=== PATIENT | female | born 1950 | race Caucasian/White ===

== ENCOUNTER 2018-04-20 19:14 | Inpatient (IN) ==
--- NOTE | 2018-04-20 19:22 | Emergency Department Note ---
Disposition Clinical Impression: Weakness, Dehydration, Acute kidney injury Disposition: Admitted As Inpatient Condition: Fair Time of Disposition: 23:09 Weakness HPI - General Chief complaint: ED Weakness Stated complaint: weakness Time Seen by Provider: 04/20/18 19:18 Source: patient, family, EMS Mode of arrival: EMS Limitations: no limitations Nursing Notes Reviewed: Yes Vital Signs Reviewed: Yes - History of Present Illness HPI Narrative: Patient receiving chemotherapy for ovarian cancer. She presents by EMS from home for generalized weakness, especially in her legs. Associated nausea. No fevers. Pt Subjective Complaint: generalized weakness/fatigue Onset (ago): hour(s) Duration: constant Location: generalized, other (Especially in the legs) Improves with: none Worsens with: none Context: other (Undergoing chemotherapy for advanced ovarian cancer) Associated symptoms: Reports: other (Nausea) - Related Data Home Medications Medication Instructions Recorded Confirmed Aspirin 81 mg PO DAILY 08/18/16 04/20/18 Atenolol [Tenormin] 25 mg PO DAILY 08/18/16 04/20/18 Ipratropium/Albuterol Neb [Duoneb] 3 ml IH Q6HR PRN 08/18/16 04/20/18 Tiotropium [Spiriva] 1 puff IH DAILY 08/18/16 04/20/18 metFORMIN [Glucophage] 500 mg PO BIDWM 08/18/16 04/20/18 Albuterol Sulfate [Albuterol 2 puff IH QID PRN 01/04/18 04/20/18 Inhaler] Budesonide/Formoterol 160/4.5 2 puff IH BIDR 01/04/18 04/20/18 [Symbicort 160/4.5] Cholecalciferol (D-3) [Vitamin D] 1,000 unit PO DAILY 01/04/18 04/20/18 Omeprazole [PriLOSEC] 40 mg PO DAILY 01/04/18 04/20/18 Pravastatin Sodium [Pravachol] 80 mg PO HS 01/04/18 04/20/18 Azelastine 0.1% Nasal [place] 1 spr NS BID 04/20/18 04/20/18 [Astelin] Loratadine/Pseudophed (12 HR) 1 tab PO DAILY 04/20/18 04/20/18 [Claritin D (12HR)] Triamcinolone Acetonide [Nasacort] 1 puff NS DAILY 04/20/18 04/20/18 Allergies Allergy/AdvReac Type Severity Reaction Status Date / Time ciprofloxacin [From Cipro] Allergy Rash Verified 04/20/18 20:31 prednisone Allergy Rash Verified 04/20/18 20:31 All systems ED: reviewed and negative except as stated. Constitutional: Reports: weakness Eyes: Reports: as per HPI ENT ED: Reports: as per HPI Cardiovascular: Reports: as per HPI Respiratory: Reports: as per HPI Gastrointestinal: Reports: nausea, other (Open fistula lesion to abd wall) Genitourinary: Reports: as per HPI Musculoskeletal: Reports: as per HPI Integumentary: Reports: as per HPI Neurological: Reports: as per HPI Psychiatric: Reports: as per HPI Endocrine: Reports: as per HPI Hematological/Lymphatic: Reports: as per HPI Allergic/Immunologic: Reports: as per HPI Past Medical History - Past Medical History Source: patient Medical history: Reports: asthma, cancer, COPD, diabetes, GERD, hyperlipidemia, hypertension, other Surgical history: Reports: hysterectomy (1980), other (Colonoscopy w/polypectomy , hyperplastic polyp, Dr. 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 - Social History Smoking Status: Former smoker Smokeless Tobacco Status: No Alcohol use: Reports: none Drug use: Reports: none Physical Exam - General Limitations: no limitations General appearance: alert - Head Head exam: atraumatic - Eye Eye exam: Present: normal appearance - ENT ENT exam: normal exam - Neck Neck exam: Present: normal inspection, full ROM - Chest Chest inspection: Present: normal inspection, symmetric chest wall rise - Respiratory Respiratory exam: Present: normal lung sounds bilaterally - Cardiovascular Cardiovascular exam: Present: regular rate, normal rhythm, normal heart sounds - Abdominal Exam Abdominal exam: Present: soft, Non-Tender, other (Ostomy appliance in place. Open fistula lesion with scant drainage) - Rectal Exam Rectal exam: Present: deferred - Extremities Exam Extremities exam: Present: normal inspection - Neurological Exam Neurological exam: Present: alert, oriented X3, CN II-XII intact - Psychiatric Psychiatric exam: Present: normal affect, normal mood - Skin Skin exam: Present: warm, dry, intact Course Course Narrative: Patient with a known history of ovarian cancer undergoing chemotherapy presents with generalized weakness. I will evaluate for an acute infectious or metabolic process - Reevaluation(s) Reevaluation #1: Labs indicate acute kidney injury and dehydration with hyponatremia. IV fluids ordered Vital Signs Temperature 98.1 F 04/20/18 19:16 Pulse Rate 103 04/20/18 19:16 Respiratory Rate 18 04/20/18 19:16 Blood Pressure 122/91 04/20/18 19:16 O2 Sat by Pulse Oximetry 98 04/20/18 19:16 Temperature 98.2 F 04/20/18 22:39 Pulse Rate 95 04/20/18 22:39 Respiratory Rate 16 04/20/18 22:39 Blood Pressure 96/62 04/20/18 22:39 O2 Sat by Pulse Oximetry 96 04/20/18 22:39 Oxygen Delivery Oxygen Delivery Room Air Weakness - Lab Data Lab results reviewed: Yes I reviewed the patient's lab results. Result diagrams: 04/20/18 19:26 04/20/18 19:26 Lab Results 04/20/18 04/20/18 04/20/18 Range/Units 19:26 19:26 19:38 WBC 5.4 (4.3-11.1) K/mcL RBC 4.14 (3.82-4.97) M/mcL Hgb 12.0 (11.5-15.4) g/dL Hct 36.9 (35.3-44.9) % MCV 89.1 (83.0-100.0) fL MCH 29.0 (28.0-33.3) pg MCHC 32.5 (31.6-35.5) g/dL RDW 21.4 H (11.5-14.5) % Plt Count 402 H (140-400) K/mcL MPV 10.2 (9.4-12.4) fL Immature Gran % 1.7 (0-4) % Seg Neutrophils % 66.0 % Lymphocytes % 14.6 % Monocytes % 15.5 % Eosinophils % 1.3 % Basophils % 0.9 % Neutrophils # 3.6 (1.6-8.9) K/mcL Lymphocytes # 0.8 (0.6-4.6) K/mcL Monocytes # 0.8 (0.0-1.3) K/mcL Eosinophils # 0.1 (0.0-0.6) K/mcL Basophils # 0.1 (0.0-0.2) K/mcL Sodium 124 L (136-145) mEq/L Potassium 4.0 (3.5-5.1) mEq/L Chloride 92 L (98-107) mEq/L Carbon Dioxide 18 L (23-29) mEq/L BUN 32 H (8-23) mg/dL Creatinine 1.57 H (0.60-1.20) mg/dL Est GFR ( Amer) 40 L (> 60) Est GFR (Non-Af Amer) 33 L (> 60) BUN/Creatinine Ratio 20 (6-26) Glucose 119 H (70-105) mg/dL Calculated Osmolality 266 L (280-300) Calcium 11.1 H (8.6-10.3) mg/dL Magnesium 1.9 (1.6-2.6) mg/dL Total Bilirubin 0.3 (0.3-1.0) mg/dL AST 24 (13-39) Units/L ALT 47 (7-52) Units/L Alkaline Phosphatase 208 H (34-104) Units/L Troponin I < 0.03 (< 0.04) ng/mL Serum Total Protein 8.7 (6.4-8.9) g/dL Albumin 4.6 (3.5-5.7) g/dL Globulin 4.1 H (2.4-3.5) g/dL Albumin/Globulin Ratio 1.1 (1.1-2.2) Urine Color Dark Yellow (Yellow) Urine Clarity Turbid A (Clear) Urine pH 5.5 (5.0-8.0) pH Units Ur Specific [place] > 1.030 H (1.010-1.025) Urine Protein 30 H (Neg-Trace) mg/dL Urine Glucose (UA) Normal (Normal) mg/dL Urine Ketones Trace H (Negative) mg/dL Urine Blood Negative (Negative) Urine Nitrite Negative (Negative) Urine Bilirubin Moderate H (Negative) Urine Urobilinogen Normal (Normal) mg/dL Ur Leukocyte Esterase Moderate H (Negative) Urine Microscopic RBC 0-3 (0-3) per hpf Urine Microscopic WBC TNTC H (0-3) per hpf Ur Squamous Epith Cells Many H (None-Few) per lpf Urine Bacteria None Seen (None-Few) per hpf Hyaline Casts Moderate H (None-Few) per lpf - Radiology Data Radiology results reviewed: Yes I reviewed the patient's radiology results. - EKG Data EKG attestation: Yes I reviewed and interpreted this EKG. EKG results narrative: Sinus tachycardia rate 100 FL 137 QRS 88 QT/QTC 351/408. No acute ST segment elevation. Study compared to previous dated 01/22/18
[2018-04-20 19:38] LABS: Basophils # 0.1 K/mcL (0.0-0.2); Basophils % 0.9 %; Eosinophils # 0.1 K/mcL (0.0-0.6); Eosinophils % 1.3 %; Hematocrit 36.9 % (35.3-44.9); Immature Granulocytes % 1.7 % (0-4); Lymphocytes # 0.8 K/mcL (0.6-4.6); Lymphocytes % 14.6 %; Mean Corpuscular HGB Conc 32.5 g/dL (31.6-35.5); Mean Corpuscular Volume 89.1 fL (83.0-100.0); Mean Platelet Volume 10.2 fL (9.4-12.4); Monocytes # 0.8 K/mcL (0.0-1.3); Monocytes % 15.5 %; Neutrophils # 3.6 K/mcL (1.6-8.9); Platelet Count 402 K/mcL (140-400); Red Blood Count 4.14 M/mcL (3.82-4.97); Red Cell Distribution Width 21.4 % (11.5-14.5)
[2018-04-20 19:51] LABS: Bilirubin,Urine Moderate (Negative); Blood,Urine Negative (Negative); Clarity,Urine Turbid (Clear); Color,Urine Dark Yellow (Yellow); Glucose,Urine (UA) Normal (Normal); Ketones,Urine Trace mg/dL (Negative); Leukocyte Esterase,Urine Moderate (Negative); Nitrite,Urine Negative (Negative); PH,Urine 5.5 pH Units (5.0-8.0); Protein,Urine 30 mg/dL (Neg-Trace); Specific Gravity,Urine > 1.030 (1.010-1.025); Urobilinogen,Urine Normal (Normal)
[2018-04-20 19:55] LABS: Bacteria,Urine None Seen per hpf (None-Few); Squamous Epithelial Cell,Urine Many per lpf (None-Few); WBC,Urine TNTC per hpf (0-3)
[2018-04-20 20:06] LABS: Troponin I < 0.03 ng/mL (< 0.04)
[2018-04-20 20:07] LABS: Alanine Aminotransferase 47 Units/L (7-52); Albumin 4.6 g/dL (3.5-5.7); Albumin/Globulin Ratio 1.1 (1.1-2.2); Alkaline Phosphatase 208 Units/L (34-104); Aspartate Amino Transferase 24 Units/L (13-39); BUN/Creatinine Ratio 20 (6-26); Bilirubin,Total 0.3 mg/dL (0.3-1.0); Blood Urea Nitrogen 32 mg/dL (8-23); Calcium 11.1 mg/dL (8.6-10.3); Carbon Dioxide 18 mEq/L (23-29); Chloride 92 mEq/L (98-107); Globulin 4.1 g/dL (2.4-3.5); Glucose 119 mg/dL (70-105); Magnesium 1.9 mg/dL (1.6-2.6); Osmolality,Calculated 266 (280-300); Sodium 124 mEq/L (136-145); Total Protein 8.7 g/dL (6.4-8.9); eGFR For African Americans 40 (> 60); eGFR For Non-African Americans 33 (> 60)
[2018-04-20 20:13] LABS: Hyaline Casts,Urine Moderate per lpf (None-Few)
[2018-04-20 20:14] LABS: RBC,Urine 0-3 per hpf (0-3)
[2018-04-20] MEDS ORDERED: 0.9 % Sodium Chloride 1,000 ML IVC ONE (20:14)
--- NOTE | 2018-04-20 21:03 | Internal Med History&Physical ---
Date of Encounter: 04/20/18 Time of Encounter: 20:59 Internal Medicine - H&P: HPI Chief complaint: Dizziness and weakness Admitted From: Emergency Dept Plans for Post Hospital Care: Home History of present illness: Ms. Arzola is a 67 year old female with history of ovarian cancer stage III that was diagnosed in December for which she has been receiving chemotherapy with last chemotherapy 3 weeks ago, diabetes, COPD on nighttime oxygen, GERD, hyperlipidemia, hypertension, SBO status post colon resection with ostomy creation complicated by wound dehiscence, who presents with complaints of dizziness upon standing this been going on since yesterday. The patient says that she has been feeling weak for a couple days actually. She had a CT chest/ abdomen/pelvis done yesterday for evaluation of her cancer and had to do oral IV contrast. She says the oral contrast "did not sit well with me" and has caused her to be nauseated and has not been eating well. This morning she felt dizzy upon standing and felt that she was dehydrated and was brought to the emergency department. In the ED she was hemodynamic is stable. Laboratory workup showed signs of dehydration with elevated kidney function, hyponatremia at 124, elevated platelets and elevated calcium. The patient was given 1 L of normal saline in the ED. She denies any fever, chills, blurry vision, headache , vomiting, abdominal pain, diarrhea or constipation, urinary symptoms, or neurological symptoms. Past Med Surg Social Fam HX - Past Medical History Medical history: asthma, cancer, COPD, diabetes, GERD, hyperlipidemia, hypertension, other Additional medical history: ovarian cancer Psychiatric history: no psych history - Past Surgical History Surgical History: hysterectomy (1980), other (Colonoscopy w/polypectomy, hyperplastic polyp, Dr. Doe 07/05/2012; Heart cath 08/18/2016) Additional surgical history: bowel obstruction - Social History Smoking Status: Former smoker Smokeless Tobacco Status: No Alcohol use: none Drug use: none Internal Medicine - H&P: Meds Aspirin 81 mg PO DAILY 08/18/16 [History] Atenolol [Tenormin] 25 mg PO DAILY 08/18/16 [History] Ipratropium/Albuterol Neb [Duoneb] 3 ml IH Q6HR PRN 08/18/16 [History] Tiotropium [Spiriva] 1 puff IH DAILY 08/18/16 [History] metFORMIN [Glucophage] 500 mg PO BIDWM 08/18/16 [History] Albuterol Sulfate [Albuterol Inhaler] 2 puff IH QID PRN 01/04/18 [History] Budesonide/Formoterol 160/4.5 [Symbicort 160/4.5] 2 puff IH BIDR 01/04/18 [ History] Cholecalciferol (D-3) [Vitamin D] 1,000 unit PO DAILY 01/04/18 [History] Omeprazole [PriLOSEC] 40 mg PO DAILY 01/04/18 [History] Pravastatin Sodium [Pravachol] 80 mg PO HS 01/04/18 [History] Azelastine 0.1% Nasal [place] [Astelin] 1 spr NS BID 04/20/18 [History] Loratadine/Pseudophed (12 HR) [Claritin D (12HR)] 1 tab PO DAILY 04/20/18 [ History] Triamcinolone Acetonide [Nasacort] 1 puff NS DAILY 04/20/18 [History] 3 Allergy/AdvReac Type Severity Reaction Status Date / Time ciprofloxacin [From Cipro] Allergy Rash Verified 04/20/18 20:31 prednisone Allergy Rash Verified 04/20/18 20:31 All Systems PM: A 10-system review of systems was performed and is negative for pertinent findings except as documented above in the HPI. Review of systems: All systems reviewed are negative except for as mentioned above - Constitutional Vitals: Temp Pulse Resp BP Pulse Ox 98.1 F 103 18 122/91 98 04/20/18 19:16 04/20/18 19:16 04/20/18 19:16 04/20/18 19:16 04/20/18 19:16 Exam: GEN: NAD HEENT: AT, NC, No cyanosis, oral mucosa is moist, No JVD Lymphatics: No lymphadenoapthy Eyes: Extrocular muscles intact, anicteric CVS:RRR. S1, S2, No m/r/g RESP: CTAB ABD: Soft, NT, ND, +BS EXT: No edema, No rashes, 2+ DP NEURO: Nonfocal, CN II-XII intact, No focal motor or sensory deficits Psych: Cooperative, Not anxious or depressed Internal Med - H&P Results - Labs CBC & Chem 7: 04/20/18 19:26 04/20/18 19:26 Labs: Short CBC 04/20/18 Range/Units 19:26 WBC 5.4 (4.3-11.1) K/mcL Hgb 12.0 (11.5-15.4) g/dL Hct 36.9 (35.3-44.9) % Plt Count 402 H (140-400) K/mcL Neutrophils # 3.6 (1.6-8.9) K/mcL BMP 04/20/18 19:26 Sodium 124 L Potassium 4.0 Chloride 92 L Carbon Dioxide 18 L BUN 32 H Creatinine 1.57 H Glucose 119 H Calcium 11.1 H Cardiac Enzymes 04/20/18 Range/Units 19:26 Troponin I < 0.03 (< 0.04) ng/mL Liver Function 04/20/18 Range/Units 19:26 Total Bilirubin 0.3 (0.3-1.0) mg/dL AST 24 (13-39) Units/L ALT 47 (7-52) Units/L Alkaline Phosphatase 208 H (34-104) Units/L Albumin 4.6 (3.5-5.7) g/dL Urine 04/20/18 Range/Units 19:38 Urine Color Dark Yellow (Yellow) Urine Clarity Turbid A (Clear) Urine pH 5.5 (5.0-8.0) pH Units Ur Specific [place] > 1.030 H (1.010-1.025) Urine Protein 30 H (Neg-Trace) mg/dL Urine Glucose (UA) Normal (Normal) mg/dL - Impressions ITS Impressions Chest X-Ray 04/20/18 19:19 IMPRESSION: No acute cardiopulmonary process. D/ : / 04/20/2018 20:01:53 Chelsey Kamara MD / bcarter Interpreting Provider: Chelsey Kamara MD - Assessment and plan (1) KOBE (acute kidney injury) Current Visit: Yes Status: Acute Assessment and plan: The patient has signs that explains her dizziness/weakness. We will hydrate the patient. We will monitor kidney function. The patient did get IV contrast yesterday but I believe her symptoms today are likely from dehydration. If her kidney function does not improve with IV fluids, will consult nephrology. Avoid nephrotoxins. (2) Hyponatremia Current Visit: Yes Status: Acute Assessment and plan: Again likely secondary to volume depletion. We will hydrate and check labs in the morning. (3) Dehydration Current Visit: Yes Status: Acute Assessment and plan: Plan as above. (4) Ovarian cancer Current Visit: Yes Status: Acute Assessment and plan: Follows up with [facility]. Currently on chemotherapy. Qualifiers: Laterality: unspecified laterality Qualified Code(s): C56.9 - Malignant neoplasm of unspecified ovary (5) COPD (chronic obstructive pulmonary disease) Current Visit: Yes Status: Acute Assessment and plan: Not in exacerbation. Continue with home inhalers. Qualifiers: COPD type: emphysema Emphysema type: unspecified Qualified Code(s): J43.9 - Emphysema, unspecified (6) Hypertension Current Visit: Yes Status: Acute Assessment and plan: Resume home antihypertensives. Qualifiers: Hypertension type: essential hypertension Qualified Code(s): I10 - Essential (primary) hypertension (7) S/P colostomy Current Visit: Yes Status: Acute Assessment and plan: Patient has obvious surgical scars with an area of a open small wound in the midabdomen. Area seems clean and dry however I will get a wound consult. (8) GERD (gastroesophageal reflux disease) Current Visit: Yes Status: Acute Assessment and plan: Continue on PPI Qualifiers: Esophagitis presence: without esophagitis Qualified Code(s): K21.9 - Gastro -esophageal reflux disease without esophagitis (9) DVT prophylaxis Current Visit: Yes Status: Acute Assessment and plan: Heparin subcutaneous (10) Diabetes Current Visit: Yes Status: Acute Assessment and plan: Will place on SSI and accucheks. 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
[2018-04-20] MEDS ORDERED: Ondansetron 4 MG/2 ML VIAL IVP PRN (21:07)
[2018-04-20] MEDS ORDERED: Naloxone 0.4 MG/ML INJ IVP PRN (21:08)
[2018-04-20] MEDS ORDERED: Acetaminophen 325 MG TABLET PO PRN (21:08)
[2018-04-20] MEDS ORDERED: D5% in Water 1,000 ML IVC PRN (21:09)
[2018-04-20] MEDS ORDERED: Dextrose Gel 15 GM/37.5 ML TUBE PO PRN ×2 (21:09)
[2018-04-20] MEDS ORDERED: *HR* Dextrose 50 % in Water (Syg) 50 ML SYRINGE IVP PRN (21:09)
[2018-04-20] MEDS: *HR* Heparin 5,000 UNIT/ML VIAL SQ SCH (23:22)
[2018-04-20] MEDS: 0.9 % Sodium Chloride 1,000 ML IVC SCH (23:23)
[2018-04-20] MEDS: Budesonide/Formoterol 160/4.5 MDI IH SCH (23:55)
[2018-04-21 04:20] LABS: Basophils % 0.7 %; Eosinophils # 0.1 K/mcL (0.0-0.6); Eosinophils % 1.3 %; Hematocrit 29.8 % (35.3-44.9); Immature Granulocytes % 1.7 % (0-4); Lymphocytes # 0.9 K/mcL (0.6-4.6); Lymphocytes % 20.3 %; Mean Corpuscular HGB Conc 32.6 g/dL (31.6-35.5); Mean Corpuscular Volume 89.2 fL (83.0-100.0); Monocytes # 0.8 K/mcL (0.0-1.3); Monocytes % 17.2 %; Neutrophils # 2.7 K/mcL (1.6-8.9); Platelet Count 308 K/mcL (140-400); Red Blood Count 3.34 M/mcL (3.82-4.97); Red Cell Distribution Width 21.5 % (11.5-14.5); Segmented Neutrophils % 58.8 %
[2018-04-21 04:22] LABS: Hemoglobin 9.7 g/dL (11.5-15.4)
[2018-04-21 04:39] LABS: Calcium 9.4 mg/dL (8.6-10.3); Magnesium 1.8 mg/dL (1.6-2.6); Phosphorous 4.6 mg/dL (2.7-4.5); Potassium 3.3 mEq/L (3.5-5.1)
[2018-04-21] MEDS: Budesonide/Formoterol 160/4.5 MDI IH SCH ×2 (08:05→20:16)
[2018-04-21] MEDS ORDERED: 0.9 % Sodium Chloride 250 ML IVC ONE ×3 (09:00→12:44)
[2018-04-21] MEDS ORDERED: 0.9 % Sodium Chloride 250 ML ONE (09:01)
[2018-04-21] MEDS: *HR* Heparin 5,000 UNIT/ML VIAL SQ SCH ×3 (09:46→21:32)
[2018-04-21] MEDS: Aspirin 81 MG TAB.CHEW PO SCH (09:47)
[2018-04-21] MEDS: Azelastine 0.1% Nasal Spray 30 ML BOTTLE NS SCH ×2 (09:47→21:32)
[2018-04-21] MEDS: Cholecalciferol (D-3) 1,000 UNIT TABLET PO SCH (09:47)
[2018-04-21] MEDS: Loratadine/Pseudophed (12 HR) 1 EACH TABLET PO SCH (09:47)
[2018-04-21] MEDS: Fluticasone Propionate Nasal 50 MCG/SPRAY BOTTLE NS SCH ×2 (09:47→21:32)
[2018-04-21] MEDS: Insulin LISPRO 300 UNITS/3 ML VIAL SQ SCH ×3 (09:48→16:07)
[2018-04-21] MEDS: 0.9 % Sodium Chloride 1,000 ML IVC SCH (09:48)
[2018-04-21] MEDS: Tiotropium 18 MCG inhalation IH SCH (12:07)
[2018-04-21] MEDS ORDERED: 0.9 % Sodium Chloride 500 ML IVC ONE (12:51)
[2018-04-21] MEDS ORDERED: 0.9 % Sodium Chloride 500 ML ONE (12:57)
[2018-04-21 13:37] LABS: Bilirubin,Urine Negative (Negative); Blood,Urine Negative (Negative); Clarity,Urine Clear (Clear); Color,Urine Yellow (Yellow); Glucose,Urine (UA) Normal (Normal); Ketones,Urine Negative (Negative); Leukocyte Esterase,Urine Moderate (Negative); Nitrite,Urine Negative (Negative); PH,Urine 6.5 pH Units (5.0-8.0); Protein,Urine Trace mg/dL (Neg-Trace); Urobilinogen,Urine Normal (Normal)
[2018-04-21 13:47] LABS: Hyaline Casts,Urine Few per lpf (None-Few); Squamous Epithelial Cell,Urine Many per lpf (None-Few); WBC,Urine 50-100 per hpf (0-3)
[2018-04-21 13:48] LABS: Bacteria,Urine Few per hpf (None-Few); Renal Epithelial Cells,Urine Few per hpf (None-Few)
--- NOTE | 2018-04-21 17:33 | Internal Med Progress Note ---
Date of Encounter: 04/21/18 Time of Encounter: 11:00 - Assessment and plan (1) KOBE (acute kidney injury) Current Visit: Yes Status: Acute Assessment and plan: Presented with KOBE likely secondary to dehydration and decreased po intake due to nausea. Improved with IVF. Avoid nephrotoxins and monitor labs. Consider nephrology consultation if no improvement. T (2) Hyponatremia Current Visit: Yes Status: Acute Assessment and plan: Likwly secondary to dehydration and volume reduction. Improved overnight. Monitor labs in the a.m. (3) Dehydration Current Visit: Yes Status: Acute Assessment and plan: Plan as above. (4) Ovarian cancer Current Visit: Yes Status: Chronic Assessment and plan: Follow with cancer center after discharge. Qualifiers: Laterality: unspecified laterality Qualified Code(s): C56.9 - Malignant neoplasm of unspecified ovary (5) COPD (chronic obstructive pulmonary disease) Current Visit: Yes Status: Acute Assessment and plan: No acute exacerbation. Lungs clear, no wheezing, rales, or ronchi. Continue home medications, Symbicort, albuterol inhaler 02 prn to maintain sats > 92% Qualifiers: COPD type: emphysema Emphysema type: unspecified Qualified Code(s): J43.9 - Emphysema, unspecified (6) Hypertension Current Visit: Yes Status: Acute Assessment and plan: Pt with hypotension, antihypertensives held. Qualifiers: Hypertension type: essential hypertension Qualified Code(s): I10 - Essential (primary) hypertension (7) S/P colostomy Current Visit: Yes Status: Acute Assessment and plan: Patient has obvious surgical scars with an area of a open small wound in the midabdomen. Area cultured due to lactic acidosis and hypotension. Area seems clean and dry however I will get a wound consult. Requested culture. (8) DVT prophylaxis Current Visit: Yes Status: Acute Assessment and plan: Heparin (9) GERD (gastroesophageal reflux disease) Current Visit: Yes Status: Chronic Assessment and plan: Chronic. 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 No tachycardia, tachypneia, or fever noted. UA not indicative of UTI, CXR without acute cardiopulmonary process. Abdominal wound cultured, Blood culture x 2 ordered and pending. Repeat level 1.5- resolved. - Time Spent With Patient Total time spent is greater than 50% in coordination of care (as documented) at patient's floor/unit and/or counseling patient: less than 15 minutes - Subjective Interval history: pt was seen and assessed at bedside at 11a.m. at bedside. Pt states that she was not feeling well, did not eat or drink, and became dehydrated. She reports 'upset stomach" since yesterday, 3-4 day history of frontal headache, feeling weak, and posterior neck pain with radiation into upper shouders and into bilateral legs. She states that the headache is a sinus headache and that she has them all of the time. - Constitutional Vitals: Temp Pulse Resp BP Pulse Ox 98.2 F 87 16 100/60 90 04/21/18 14:59 04/21/18 14:59 04/21/18 14:59 04/21/18 16:06 04/21/18 14:59 General appearance: Present: cooperative, A&O X 3, pleasant, no acute distress, answers questions appropriately - Head Head exam: Present: atraumatic, normal inspection, normocephalic - Eye Eye exam: Present: normal appearance, conjuntiva pink, sclera anicteric - Neck Neck exam general surgery: Present: supple, trachea midline. Absent: lymphadenopathy, tenderness - Respiratory Respiratory exam: Present: CTAB. Absent: accessory muscle use, chest wall tenderness, decreased breath sounds, rales, rhonchi, wheezes - Cardiovascular Cardiovascular exam: Present: RRR, +S1, +S2. Absent: diastolic murmur, gallop, rubs, systolic murmur - GI/Abdominal GI/Abdominal exam: Present: soft, no peritoneal signs. Absent: distended, hepatomegaly, tenderness - Extremities Exam Extremities exam: Present: normal capillary refill, normal inspection, warm, radial pulses palpable and symmetrical. Absent: calf tenderness, cyanotic, pedal edema, tenderness - Neurological Exam Neurological exam: Present: alert, oriented X3, no focal deficits. Absent: facial droop, speech deficit - Skin Skin exam: Present: dry, intact, normal color, warm. Absent: rash Internal Medicine: Result - Labs CBC & Chem 7: 04/21/18 03:54 04/21/18 03:54 Labs: Short CBC 04/21/18 Range/Units 03:54 WBC 4.6 (4.3-11.1) K/mcL Hgb 9.7 L D (11.5-15.4) g/dL Hct 29.8 L (35.3-44.9) % Plt Count 308 (140-400) K/mcL Neutrophils # 2.7 (1.6-8.9) K/mcL BMP 04/21/18 03:54 Sodium 128 L Potassium 3.3 L Chloride 98 Carbon Dioxide 17 L BUN 30 H Creatinine 1.20 Glucose 99 Calcium 9.4 Urine 04/21/18 Range/Units 13:30 Urine Color Yellow (Yellow) Urine Clarity Clear (Clear) Urine pH 6.5 (5.0-8.0) pH Units Ur Specific [place] 1.020 (1.010-1.025) Urine Protein Trace (Neg-Trace) mg/dL Urine Glucose (UA) Normal (Normal) mg/dL Consult Discharge Plan - Plan Referrals: Erickson Cheney MD [Primary Care Provider] -
[2018-04-21] MEDS ORDERED: Ringers Solution, Lactated 1,000 ML IVC SCH (17:45)
--- NOTE | 2018-04-21 17:48 | Electrocardiograph Report ---
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
[2018-04-21] MEDS ORDERED: Insulin LISPRO 300 UNITS/3 ML VIAL SQ SCH (21:00)
[2018-04-22 04:45] LABS: Basophils % 0.5 %; Eosinophils # 0.1 K/mcL (0.0-0.6); Eosinophils % 1.5 %; Hematocrit 27.2 % (35.3-44.9); Hemoglobin 8.5 g/dL (11.5-15.4); Immature Granulocytes % 1.1 % (0-4); Lymphocytes # 0.9 K/mcL (0.6-4.6); Lymphocytes % 16.9 %; Mean Corpuscular HGB Conc 31.3 g/dL (31.6-35.5); Mean Corpuscular Hemoglobin 28.6 pg (28.0-33.3); Mean Corpuscular Volume 91.6 fL (83.0-100.0); Mean Platelet Volume 10.3 fL (9.4-12.4); Monocytes # 0.8 K/mcL (0.0-1.3); Monocytes % 13.6 %; Neutrophils # 3.7 K/mcL (1.6-8.9); Platelet Count 264 K/mcL (140-400); Red Blood Count 2.97 M/mcL (3.82-4.97); Red Cell Distribution Width 21.7 % (11.5-14.5); Segmented Neutrophils % 66.4 %
[2018-04-22 04:57] LABS: BUN/Creatinine Ratio 19 (6-26); Blood Urea Nitrogen 13 mg/dL (8-23); Calcium 9.1 mg/dL (8.6-10.3); Carbon Dioxide 18 mEq/L (23-29); Chloride 104 mEq/L (98-107); Glucose 117 mg/dL (70-105); Osmolality,Calculated 273 (280-300); Potassium 3.4 mEq/L (3.5-5.1); Sodium 131 mEq/L (136-145); eGFR For African Americans > 60 (> 60); eGFR For Non-African Americans > 60 (> 60)
[2018-04-22] MEDS: *HR* Heparin 5,000 UNIT/ML VIAL SQ SCH ×2 (05:34→15:36)
[2018-04-22] MEDS ORDERED: Nystatin POWDER 30 GM BOTTLE TP SCH (09:00)
[2018-04-22] MEDS: Insulin LISPRO 300 UNITS/3 ML VIAL SQ SCH ×2 (09:03→12:38)
[2018-04-22] MEDS: Loratadine/Pseudophed (12 HR) 1 EACH TABLET PO SCH (09:11)
[2018-04-22] MEDS: Aspirin 81 MG TAB.CHEW PO SCH (09:11)
[2018-04-22] MEDS: Cholecalciferol (D-3) 1,000 UNIT TABLET PO SCH (09:11)
[2018-04-22] MEDS: Azelastine 0.1% Nasal Spray 30 ML BOTTLE NS SCH (09:12)
[2018-04-22] MEDS: Fluticasone Propionate Nasal 50 MCG/SPRAY BOTTLE NS SCH (09:12)
[2018-04-22] MEDS: Budesonide/Formoterol 160/4.5 MDI IH SCH (09:38)
[2018-04-22] MEDS: Tiotropium 18 MCG inhalation IH SCH (09:38)
[2018-04-22] MEDS ORDERED: Trolamine Salicylate/Aloe Vera 35.4 GM TUBE TP PRN (11:49)
--- NOTE | 2018-04-22 15:47 | Discharge Summary ---
- NOTES TO OUTPATIENT PROVIDER Notes to Outpatient Provider: Pt was admitted for hyponatremia and dehydration secondary to nausea and decreased fluid intake. Pt was rehydrated with IVF and Na+ returned to normal. Pt was hypotensive throughout much of her visit and responded slowly to IVF boluses, but BP normalized prior to discharge. Pt also was found to have UTI, GNR and will be treated with Bactrim DS x 7 days, request follow up UA to assess for resolution of UTI. Orders not resulted at time of discharge: Pending orders 04/21/18 08:46 Culture,Urine [RM] Routine 04/21/18 11:13 Culture,Blood [BC] Stat 04/21/18 16:21 Culture,Wound [RM] Routine 04/23/18 04:00 Basic Metabolic Panel AM 0400 Complete Blood Count [HEME] AM 0400 Date of Encounter: 04/22/18 Time of Encounter: 12:10 - Discharge Diagnosis (1) KOBE (acute kidney injury) Priority: Secondary Status: Acute Assessment and Plan: secondary to dehydration and decreased po intake due to nausea. Improved with IVF. Renal function WNL. Avoid nephrotoxins T (2) Hyponatremia Priority: Secondary Status: Resolved Assessment and Plan: Likwly secondary to dehydration and volume reduction. Resovled today, 135. (3) Dehydration Priority: Secondary Status: Resolved Assessment and Plan: Resolved. (4) Ovarian cancer Priority: Secondary Status: Chronic Assessment and Plan: Follow with cancer center after discharge. Pt reports that she is to have surgery Tuesday and was asking if she should still go, requested that she call surgeon to assess and discuss with them. Qualifiers: Laterality: unspecified laterality Qualified Code(s): C56.9 - Malignant neoplasm of unspecified ovary (5) COPD (chronic obstructive pulmonary disease) Priority: Secondary Status: Chronic Assessment and Plan: No acute exacerbation. Lungs clear, no wheezing, rales, or ronchi. Continue home medications, Symbicort, albuterol inhaler Qualifiers: COPD type: emphysema Emphysema type: unspecified Qualified Code(s): J43.9 - Emphysema, unspecified (6) Hypertension Priority: Secondary Status: Acute Assessment and Plan: Pt with hypotension, antihypertensives held. BP WNL today, continue home medications tomorrow. Qualifiers: Hypertension type: essential hypertension Qualified Code(s): I10 - Essential (primary) hypertension (7) S/P colostomy Priority: Secondary Status: Chronic Assessment and Plan: Patient has obvious surgical scars with an area of a open small wound in the midabdomen. Area cultured due to lactic acidosis and hypotension. Wound care consulted pt, no recommendations. Pt follows at [facility]. Requested culture. (8) DVT prophylaxis Priority: Secondary Status: Acute Assessment and Plan: Heparin (9) GERD (gastroesophageal reflux disease) Priority: Secondary Status: Chronic Assessment and Plan: Chronic. Continue home medications. Qualifiers: Esophagitis presence: without esophagitis Qualified Code(s): K21.9 - Gastro -esophageal reflux disease without esophagitis (10) Diabetes Priority: Secondary Status: Acute Assessment and Plan: Continue home medications. A1c 6.6%. Qualifiers: Diabetes mellitus type: type 2 Diabetes mellitus buttermaker insulin use: without buttermaker use Diabetes mellitus complication status: without complication Qualified Code(s): E11.9 - Type 2 diabetes mellitus without complications (11) Elevated lactic acid level Priority: Secondary Status: Resolved Assessment and Plan: Resolved. (12) UTI (urinary tract infection), bacterial Priority: Secondary Status: Acute Assessment and Plan: Initial UA indicative of UTI. Could be contributing to pt's hypotension and overall illness. Afebrile, no tachycardia, BP has returned to baseline. Bactrim DS BID x 7 days. Hospital course: Ms. Arzola is a 67 year old female with past medical history of ovarian cancer , COPD, hypertension, status post colostomy, GERD, diabetes. Patient was admitted for dehydration and decreased by mouth intake. She was found to be hyponatremic and hypotensive. Both resolved with IV fluid hydration. Patient also incidentally found to have UTI, could be contributing to hypotension and overall illness. Patient will be treated with Bactrim DS twice daily for 7 days. Recommended patient follow-up with primary care for continued treatment and follow-up. Sodium 135, potassium 3.4, hemoglobin 8.5, likely dilutional from 3 L of fluid she received. She is stable and appropriate for discharge. Discharge discussed with: patient, family - Time Spent with Patient Total time spent providing and/or coordinating discharge services: Less than 30 minutes - Discharge Medications Prescriptions: Sulfamethoxazole/Trimeth DS [Bactrim DS] 1 each PO BID #14 tablet Home Medications: Aspirin 81 mg PO DAILY 08/18/16 [History] Atenolol [Tenormin] 25 mg PO DAILY 08/18/16 [History] Ipratropium/Albuterol Neb [Duoneb] 3 ml IH Q6HR PRN 08/18/16 [History] Tiotropium [Spiriva] 1 puff IH DAILY 08/18/16 [History] metFORMIN [Glucophage] 500 mg PO BIDWM 08/18/16 [History] Albuterol Sulfate [Albuterol Inhaler] 2 puff IH QID PRN 01/04/18 [History] Budesonide/Formoterol 160/4.5 [Symbicort 160/4.5] 2 puff IH BIDR 01/04/18 [ History] Cholecalciferol (D-3) [Vitamin D] 1,000 unit PO DAILY 01/04/18 [History] Omeprazole [PriLOSEC] 40 mg PO DAILY 01/04/18 [History] Pravastatin Sodium [Pravachol] 80 mg PO HS 01/04/18 [History] Azelastine 0.1% Nasal [place] [Astelin] 1 spr NS BID 04/20/18 [History] Loratadine/Pseudophed (12 HR) [Claritin D (12HR)] 1 tab PO DAILY 04/20/18 [ History] Triamcinolone Acetonide [Nasacort] 1 puff NS DAILY 04/20/18 [History] Nystatin POWDER [Nystop] 1 appl TP BID bottle 04/22/18 [Rx] Sulfamethoxazole/Trimeth DS [Bactrim DS] 1 each PO BID #14 tablet 04/22/18 [Rx] Allergies/Adverse Reactions: 3 Allergy/AdvReac Type Severity Reaction Status Date / Time ciprofloxacin [From Cipro] Allergy Rash Verified 04/20/18 20:31 prednisone Allergy Rash Verified 04/20/18 20:31 Date of admission: 04/20/18 22:25 Primary care physician: Erickson Cheney Discharging clinician: Clarice Murray Anticipated date of discharge: 04/22/18 - Constitutional Vitals: Temp Pulse Resp BP Pulse Ox 98.2 F 103 16 110/64 98 04/22/18 11:29 04/22/18 11:29 04/22/18 11:29 04/22/18 14:34 04/22/18 11:29 General appearance: Present: cooperative, A&O X 3, pleasant, no acute distress, answers questions appropriately - Head Head exam: Present: atraumatic, normal inspection, normocephalic - Eye Eye exam: Present: normal appearance, conjuntiva pink, sclera anicteric - Neck Neck exam general surgery: Present: supple, trachea midline. Absent: lymphadenopathy, tenderness - Respiratory Respiratory exam: Present: CTAB. Absent: accessory muscle use, chest wall tenderness, rales, rhonchi, wheezes - Cardiovascular Cardiovascular exam: Present: RRR, +S1, +S2. Absent: diastolic murmur, gallop, rubs, systolic murmur - GI/Abdominal GI/Abdominal exam: Present: normal bowel sounds, soft. Absent: distended, hepatomegaly, tenderness - Extremities Exam Extremities exam: Present: normal capillary refill, normal inspection, warm, radial pulses palpable and symmetrical. Absent: calf tenderness, cyanotic, pedal edema, tenderness - Neurological Exam Neurological exam: Present: alert, oriented X3, no focal deficits. Absent: facial droop, speech deficit - Skin Skin exam: Present: dry, intact, normal color, warm. Absent: rash - Patient Status Disposition: Home, Self-Care Condition: Good Functional capacity at discharge: independent ambulation Overall status at discharge: patient is progressing back to baseline - Discharge Instructions Follow Up With: Erickson Cheney MD [Primary Care Provider] - Additional Instructions: Please follow up with your PCP in the next 7-10 days Return to the ER if your symptoms return or worsen. Return to your normal diet and activities as tolerated. Your prescription for your UTI is at [facility]. - Diet and Activity Activity: increase activity as tolerated Diet: advance to your usual diet
[2018-04-22 16:06] VITALS: BP 98/64
== END 2018-04-22 17:01 | disposition home or self-care (01) | DRG 683 ==
LOC: EMEROO 19:14 → 3BNU 19:14
PROVIDERS: ADMIT Internal Medicine; ATTEND Internal Medicine

== ENCOUNTER 2018-09-27 15:50 | Inpatient (IN) ==
[2018-09-27] MEDS ORDERED: Ondansetron 4 MG/2 ML VIAL IVP ONE (16:01)
[2018-09-27] MEDS ORDERED: 0.9 % Sodium Chloride 1,000 ML IVC ONE ×2 (16:01→17:09)
[2018-09-27 16:26] LABS: Basophils % 0.3 %; Immature Granulocytes % 0.7 % (0-4)
[2018-09-27 16:28] LABS: Eosinophils # 0.1 K/mcL (0.0-0.6); Eosinophils % 0.7 %; Hematocrit 31.9 % (35.3-44.9); Hemoglobin 10.5 g/dL (11.5-15.4); Immature Platelets 5.7 % (1.1-6.1); Lymphocytes # 1.5 K/mcL (0.6-4.6); Lymphocytes % 12.1 %; Mean Corpuscular HGB Conc 32.9 g/dL (31.6-35.5); Mean Corpuscular Hemoglobin 29.8 pg (28.0-33.3); Mean Corpuscular Volume 90.6 fL (83.0-100.0); Mean Platelet Volume 10.7 fL (9.4-12.4); Monocytes # 0.8 K/mcL (0.0-1.3); Monocytes % 6.7 %; Neutrophils # 9.6 K/mcL (1.6-8.9); Platelet Count 79 K/mcL (140-400); Red Blood Count 3.52 M/mcL (3.82-4.97); Red Cell Distribution Width 19.4 % (11.5-14.5); Segmented Neutrophils % 79.5 %
[2018-09-27 16:42] LABS: Troponin I < 0.03 ng/mL (< 0.04)
[2018-09-27 16:43] LABS: Alanine Aminotransferase 17 Units/L (7-52); Albumin 3.6 g/dL (3.5-5.7); Albumin/Globulin Ratio 1.2 (1.1-2.2); Alkaline Phosphatase 148 Units/L (34-104); Aspartate Amino Transferase 12 Units/L (13-39); BUN/Creatinine Ratio 24 (6-26); Bilirubin,Total 0.4 mg/dL (0.3-1.0); Blood Urea Nitrogen 32 mg/dL (8-23); Calcium 10.8 mg/dL (8.6-10.3); Carbon Dioxide 27 mEq/L (23-29); Chloride 98 mEq/L (98-107); Globulin 2.9 g/dL (2.4-3.5); Glucose 126 mg/dL (70-105); Osmolality,Calculated 282 (280-300); Potassium 5.6 mEq/L (3.5-5.1); Sodium 132 mEq/L (136-145); Total Protein 6.5 g/dL (6.4-8.9); eGFR For Non-African Americans 39 (> 60)
[2018-09-27] MEDS ORDERED: *HR* Morphine 2 MG/ML SYRINGE IVP ONE (16:53)
--- NOTE | 2018-09-27 16:56 | Emergency Department Note ---
Disposition Clinical Impression: Dehydration, Tachycardia, Hyperkalemia Disposition: Admitted As Inpatient Referrals: Erickson Cheney MD [Primary Care Provider] - Forms: ED Satisfaction Letter General Adult HPI - General Chief complaint: ED Weakness Stated complaint: General illness Time Seen by Provider: 09/27/18 15:51 Source: EMS - History of Present Illness Pain Scale: 7 - Related Data Home Medications Medication Instructions Recorded Confirmed Acetaminophen [Tylenol] 650 mg PO Q6HR 07/08/18 08/24/18 Guaifenesin [Mucinex] 600 mg PO BID 07/08/18 08/24/18 Loratadine [Claritin] 10 mg PO PRN PRN 07/08/18 08/24/18 Pantoprazole Sodium [Protonix] 40 mg PO BID 07/08/18 08/24/18 Pravastatin Sodium [Pravachol] 40 mg PO DAILY 07/08/18 08/24/18 Simethicone [Gas-X] 80 mg PO Q6H PRN 07/08/18 08/24/18 Tiotropium [Spiriva] 18 mcg IH 0700 07/08/18 08/24/18 Urea 100 gm MC BID 07/08/18 08/24/18 Cholecalciferol (Vitamin D3) 50,000 unit PO QWEEK 08/24/18 08/24/18 [Vitamin D3] Cyanocobalamin (Vitamin B-12) 2,000 mcg SL DAILY 08/24/18 08/24/18 [B-12] Ferrous Sulfate [Iron] 325 mg PO DAILY 08/24/18 08/24/18 Fluticasone/Vilanterol [Breo 1 each IH DAILY 08/24/18 08/24/18 Ellipta 100-25 Mcg INH] Isavuconazonium Sulfate [Cresemba] 2 cap PO DAILY 08/24/18 08/24/18 Magnesium Oxide [Magnesium] 500 mg PO DAILY 08/24/18 08/24/18 Melatonin [Melatin] 3 mg PO HS 08/24/18 08/24/18 Mirtazapine [Remeron] 15 mg PO HS 08/24/18 08/24/18 Ondansetron ODT [Zofran ODT] 4 mg SL Q6HR PRN 08/24/18 08/24/18 OxyCODONE Immed Rel [Roxicodone 5 5 mg PO DAILY 08/24/18 08/24/18 MG] OxyCODONE Immed Rel [Roxicodone 5 5 mg PO HS 08/24/18 08/24/18 MG] OxyCODONE Immed Rel [Roxicodone 5 5 mg PO Q6HR PRN 08/24/18 08/24/18 MG] Rivaroxaban [Xarelto] 20 mg PO DAILY 08/24/18 08/24/18 Sodium Chloride [Sodium Chloride 1 gm PO TID 08/24/18 08/24/18 Tab] Triamcinolone Acetonide [Nasacort] 2 spray NS DAILY 08/24/18 08/24/18 Previous Rx's Medication Instructions Recorded Demeclocycline [Declomycin] 300 mg PO Q12HR #30 tablet 08/26/18 Allergies Allergy/AdvReac Type Severity Reaction Status Date / Time ciprofloxacin [From Cipro] Allergy Rash Verified 08/24/18 03:42 prednisone Allergy Rash Verified 08/24/18 03:42 Past Medical History - Past Medical History Medical history: Reports: asthma, cancer, COPD, diabetes, GERD, hyperlipidemia, hypertension, other Surgical history: Reports: hysterectomy, other Psychiatric history: Reports: no psych history [employer] history: Reports: other - Social History Smoking Status: Former smoker Smokeless Tobacco Status: No Alcohol use: Reports: none Drug use: Reports: none Physical Exam - General General appearance: alert Course Vital Signs Temperature 98.3 F 09/27/18 15:54 Pulse Rate 98 09/27/18 15:54 Respiratory Rate 14 09/27/18 15:54 Blood Pressure 103/61 09/27/18 15:54 O2 Sat by Pulse Oximetry 100 09/27/18 15:54 Temperature 98.3 F 09/27/18 15:54 Pulse Rate 96 09/27/18 17:52 Respiratory Rate 14 09/27/18 17:52 Blood Pressure 89/61 09/27/18 17:52 O2 Sat by Pulse Oximetry 97 09/27/18 17:52 Oxygen Delivery Oxygen Delivery Room Air Medical Decision Making - Medical Records Medical records reviewed: Yes I reviewed the patient's medical records. - Lab Data Lab results reviewed: Yes I reviewed the patient's lab results. Result diagrams: 09/27/18 16:05 09/27/18 16:05 Lab Results 09/27/18 09/27/18 09/27/18 Range/Units 16:05 16:05 17:00 WBC 12.1 H (4.3-11.1) K/mcL RBC 3.52 L (3.82-4.97) M/mcL Hgb 10.5 L (11.5-15.4) g/dL Hct 31.9 L (35.3-44.9) % MCV 90.6 (83.0-100.0) fL MCH 29.8 (28.0-33.3) pg MCHC 32.9 (31.6-35.5) g/dL RDW 19.4 H (11.5-14.5) % Plt Count 79 L (140-400) K/mcL MPV 10.7 (9.4-12.4) fL Immature Gran % 0.7 (0-4) % Seg Neutrophils % 79.5 % Lymphocytes % 12.1 % Monocytes % 6.7 % Eosinophils % 0.7 % Basophils % 0.3 % Neutrophils # 9.6 H (1.6-8.9) K/mcL Lymphocytes # 1.5 (0.6-4.6) K/mcL Monocytes # 0.8 (0.0-1.3) K/mcL Eosinophils # 0.1 (0.0-0.6) K/mcL Basophils # 0.0 (0.0-0.2) K/mcL Immature Plt Fraction 5.7 (1.1-6.1) % Sodium 132 L (136-145) mEq/L Potassium 5.6 H (3.5-5.1) mEq/L Chloride 98 (98-107) mEq/L Carbon Dioxide 27 (23-29) mEq/L BUN 32 H (8-23) mg/dL Creatinine 1.35 H (0.60-1.20) mg/dL Est GFR ( Amer) 47 L (> 60) Est GFR (Non-Af Amer) 39 L (> 60) BUN/Creatinine Ratio 24 (6-26) Glucose 126 H (70-105) mg/dL Calculated Osmolality 282 (280-300) Lactic Acid 1.6 (0.5-2.2) mmol/L Calcium 10.8 H (8.6-10.3) mg/dL Total Bilirubin 0.4 (0.3-1.0) mg/dL AST 12 L (13-39) Units/L ALT 17 (7-52) Units/L Alkaline Phosphatase 148 H (34-104) Units/L Troponin I < 0.03 (< 0.04) ng/mL Serum Total Protein 6.5 (6.4-8.9) g/dL Albumin 3.6 (3.5-5.7) g/dL Globulin 2.9 (2.4-3.5) g/dL Albumin/Globulin Ratio 1.2 (1.1-2.2) - Radiology Data Radiology results reviewed: Yes I reviewed the patient's radiology results. Critical Care Time Critical Care Time: No Attestation Statement - Attestation Attestation: I examined this patient and my medical decision-making was reviewed with the Resident Physician. I agree with the documented findings, disposition and treatment plan as described except to the extent set forth below. 67-year-old female presents emergency room for generalized weakness. She is a lso complaining of nausea. She has a history of ongoing ovarian cancer with status post hurting colostomy. She also has a biliary drain in place secondary to a gallbladder infection. Pt on a Tetracycline. She is still undergoing chemotherapy treatment. Offer treatment is done through [facility]. We will check screening lab work. IV fluids IV Zofran and pain medication.
--- NOTE | 2018-09-27 17:44 | Emergency Department Note ---
Disposition Clinical Impression: Dehydration, Tachycardia, Hyperkalemia, Acute kidney injury Disposition: Admitted As Inpatient Condition: Fair Referrals: Erickson Cheney MD [Primary Care Provider] - Forms: ED Satisfaction Letter General Adult HPI - General Chief complaint: ED Weakness Stated complaint: General illness Time Seen by Provider: 09/27/18 15:51 Source: patient, family, EMS Mode of arrival: EMS Limitations: no limitations Nursing Notes Reviewed: Yes Vital Signs Reviewed: Yes - History of Present Illness HPI Narrative: 67-year-old female with significant past medical history of ovarian cancer metastatic currently receiving chemotherapy presenting to the emergency department with chief complaint of dehydration and hypotension. According to th e patient she has been more weak than normal over the past 2-3 days. Today she was feeling severely weak and her home health nurse checked her blood pressure and it was 90 systolic. They were concerned for her low blood pressure and called EMS. When patient arrived systolic blood pressure was 109. Patient is dry on exam. She denies any chest pain, shortness of breath. Discloses some nausea but denies any vomiting or abdominal pain. She does have a colostomy which she states irritates her skin frequently but has had no issues with output. Denies any urinary symptoms. Denies any recent fevers. Pain Scale: 7 - Related Data Home Medications Medication Instructions Recorded Confirmed Acetaminophen [Tylenol] 650 mg PO Q6HR 07/08/18 08/24/18 Guaifenesin [Mucinex] 600 mg PO BID 07/08/18 08/24/18 Loratadine [Claritin] 10 mg PO PRN PRN 07/08/18 08/24/18 Pantoprazole Sodium [Protonix] 40 mg PO BID 07/08/18 08/24/18 Pravastatin Sodium [Pravachol] 40 mg PO DAILY 07/08/18 08/24/18 Simethicone [Gas-X] 80 mg PO Q6H PRN 07/08/18 08/24/18 Tiotropium [Spiriva] 18 mcg IH 0700 07/08/18 08/24/18 Urea 100 gm MC BID 07/08/18 08/24/18 Cholecalciferol (Vitamin D3) 50,000 unit PO QWEEK 08/24/18 08/24/18 [Vitamin D3] Cyanocobalamin (Vitamin B-12) 2,000 mcg SL DAILY 08/24/18 08/24/18 [B-12] Ferrous Sulfate [Iron] 325 mg PO DAILY 08/24/18 08/24/18 Fluticasone/Vilanterol [Breo 1 each IH DAILY 08/24/18 08/24/18 Ellipta 100-25 Mcg INH] Isavuconazonium Sulfate [Cresemba] 2 cap PO DAILY 08/24/18 08/24/18 Magnesium Oxide [Magnesium] 500 mg PO DAILY 08/24/18 08/24/18 Melatonin [Melatin] 3 mg PO HS 08/24/18 08/24/18 Mirtazapine [Remeron] 15 mg PO HS 08/24/18 08/24/18 Ondansetron ODT [Zofran ODT] 4 mg SL Q6HR PRN 08/24/18 08/24/18 OxyCODONE Immed Rel [Roxicodone 5 5 mg PO DAILY 08/24/18 08/24/18 MG] OxyCODONE Immed Rel [Roxicodone 5 5 mg PO HS 08/24/18 08/24/18 MG] OxyCODONE Immed Rel [Roxicodone 5 5 mg PO Q6HR PRN 08/24/18 08/24/18 MG] Rivaroxaban [Xarelto] 20 mg PO DAILY 08/24/18 08/24/18 Sodium Chloride [Sodium Chloride 1 gm PO TID 08/24/18 08/24/18 Tab] Triamcinolone Acetonide [Nasacort] 2 spray NS DAILY 08/24/18 08/24/18 Previous Rx's Medication Instructions Recorded Demeclocycline [Declomycin] 300 mg PO Q12HR #30 tablet 08/26/18 Allergies Allergy/AdvReac Type Severity Reaction Status Date / Time ciprofloxacin [From Cipro] Allergy Rash Verified 08/24/18 03:42 prednisone Allergy Rash Verified 08/24/18 03:42 All systems ED: reviewed and negative except as stated. Constitutional: Reports: weakness. Denies: fever, chills Eyes: Reports: as per HPI ENT ED: Reports: as per HPI Cardiovascular: Denies: chest pain, palpitations, dyspnea on exertion Respiratory: Denies: cough, dyspnea, wheezes Gastrointestinal: Reports: nausea. Denies: abdominal pain, vomiting Genitourinary: Reports: as per HPI Musculoskeletal: Reports: as per HPI Integumentary: Reports: as per HPI Neurological: Reports: weakness. Denies: numbness, paresthesias Psychiatric: Reports: as per HPI Endocrine: Reports: as per HPI Hematological/Lymphatic: Reports: as per HPI Allergic/Immunologic: Reports: as per HPI Past Medical History - Past Medical History Attestation: Yes The following information was validated with the patient. Medical history: Reports: asthma, cancer, COPD, diabetes, GERD, hyperlipidemia, hypertension, other Surgical history: Reports: hysterectomy, other Psychiatric history: Reports: no psych history [employer] history: Reports: other - Social History Smoking Status: Former smoker Smokeless Tobacco Status: No Alcohol use: Reports: none Drug use: Reports: none Physical Exam - General Limitations: no limitations General appearance: alert, in no apparent distress - Head Head exam: atraumatic, normocephalic, normal inspection - Eye Eye exam: Present: normal appearance. Absent: scleral icterus, conjunctival injection - ENT ENT exam: mucous membranes dry - Neck Neck exam: Present: normal inspection, full ROM. Absent: tenderness, meningismus - Chest Chest inspection: Present: normal inspection, symmetric chest wall rise. Absent: tenderness, rash - Respiratory Respiratory exam: Present: normal lung sounds bilaterally. Absent: respiratory distress, wheezes - Cardiovascular Cardiovascular exam: Present: normal rhythm, tachycardia, normal heart sounds - Abdominal Exam Abdominal exam: Present: soft, Non-Tender, other (Colostomy bag in place. Mild irritation to the skin noted. No discharge from the site.). Absent: distention, guarding, rebound - Extremities Exam Extremities exam: Present: normal inspection, full ROM - Neurological Exam Neurological exam: Present: alert, oriented X3 - Psychiatric Psychiatric exam: Present: normal affect, normal mood - Skin Skin exam: Present: pallor Course Course Narrative: 67-year-old female presenting with concern for dehydration hypotension. On exam patient is alert and oriented 3 and hemodynamically stable. Systolic originally 109. Patient is tachycardic up to 120. She denies any symptoms at this time except irritation around her colostomy bag. We will plan to perform basic laboratory analysis and chest x-ray. Disposition pending results. We will provide her with 2 L of normal saline, Zofran and morphine for pain. Patient agrees with this plan. - Reevaluation(s) Reevaluation #1: Patient's laboratory analysis shows hyperkalemia at 5.6 along with acute kidney injury. Due to patient's dehydration, current chemotherapy treatment and acute kidney injury we will plan to admit her for IV hydration and further observe patient. Patient is alert and oriented 3 and hemodynamically stable. Patient agrees with this plan. I spoke with the hospitalist professor of business administration Dr. Garcia who agrees to accept the patient at this time. Vital Signs Temperature 98.3 F 09/27/18 15:54 Pulse Rate 98 09/27/18 15:54 Respiratory Rate 14 09/27/18 15:54 Blood Pressure 103/61 09/27/18 15:54 O2 Sat by Pulse Oximetry 100 09/27/18 15:54 Temperature 98.3 F 09/27/18 15:54 Pulse Rate 96 09/27/18 17:52 Respiratory Rate 14 09/27/18 17:52 Blood Pressure 89/61 09/27/18 17:52 O2 Sat by Pulse Oximetry 97 09/27/18 17:52 Oxygen Delivery Oxygen Delivery Room Air Medical Decision Making - Lab Data Result diagrams: 09/27/18 16:05 09/27/18 16:05 Lab Results 09/27/18 09/27/18 09/27/18 Range/Units 16:05 16:05 17:00 WBC 12.1 H (4.3-11.1) K/mcL RBC 3.52 L (3.82-4.97) M/mcL Hgb 10.5 L (11.5-15.4) g/dL Hct 31.9 L (35.3-44.9) % MCV 90.6 (83.0-100.0) fL MCH 29.8 (28.0-33.3) pg MCHC 32.9 (31.6-35.5) g/dL RDW 19.4 H (11.5-14.5) % Plt Count 79 L (140-400) K/mcL MPV 10.7 (9.4-12.4) fL Immature Gran % 0.7 (0-4) % Seg Neutrophils % 79.5 % Lymphocytes % 12.1 % Monocytes % 6.7 % Eosinophils % 0.7 % Basophils % 0.3 % Neutrophils # 9.6 H (1.6-8.9) K/mcL Lymphocytes # 1.5 (0.6-4.6) K/mcL Monocytes # 0.8 (0.0-1.3) K/mcL Eosinophils # 0.1 (0.0-0.6) K/mcL Basophils # 0.0 (0.0-0.2) K/mcL Immature Plt Fraction 5.7 (1.1-6.1) % Sodium 132 L (136-145) mEq/L Potassium 5.6 H (3.5-5.1) mEq/L Chloride 98 (98-107) mEq/L Carbon Dioxide 27 (23-29) mEq/L BUN 32 H (8-23) mg/dL Creatinine 1.35 H (0.60-1.20) mg/dL Est GFR ( Amer) 47 L (> 60) Est GFR (Non-Af Amer) 39 L (> 60) BUN/Creatinine Ratio 24 (6-26) Glucose 126 H (70-105) mg/dL Calculated Osmolality 282 (280-300) Lactic Acid 1.6 (0.5-2.2) mmol/L Calcium 10.8 H (8.6-10.3) mg/dL Total Bilirubin 0.4 (0.3-1.0) mg/dL AST 12 L (13-39) Units/L ALT 17 (7-52) Units/L Alkaline Phosphatase 148 H (34-104) Units/L Troponin I < 0.03 (< 0.04) ng/mL Serum Total Protein 6.5 (6.4-8.9) g/dL Albumin 3.6 (3.5-5.7) g/dL Globulin 2.9 (2.4-3.5) g/dL Albumin/Globulin Ratio 1.2 (1.1-2.2) - EKG Data EKG #1 EKG attestation: Yes I reviewed and interpreted this EKG. EKG results narrative: Sinus tachycardia. 110 beats for minute. DC interval 137, QRS 85, QTC 428. No sign of acute ST segment elevation or ischemia. Compared to previous EKG completed on 09/11/2018 no significant changes noted
[2018-09-27] MEDS ORDERED: Ondansetron 4 MG/2 ML VIAL IVP PRN (19:41)
[2018-09-27] MEDS ORDERED: Acetaminophen 325 MG TABLET PO PRN (19:43)
[2018-09-27] MEDS ORDERED: Naloxone 0.4 MG/ML INJ IVP PRN (19:43)
[2018-09-27] MEDS ORDERED: Simethicone 80 MG TAB.CHEW PO PRN (19:44)
[2018-09-27] MEDS ORDERED: Loratadine 10 MG TABLET PO PRN (19:44)
--- NOTE | 2018-09-27 19:50 | Internal Med History&Physical ---
Date of Encounter: 09/27/18 Time of Encounter: 19:46 Internal Medicine - H&P: HPI Chief complaint: Weakness Admitted From: Emergency Dept Plans for Post Hospital Care: Home History of present illness: Ms. Arzola is a 67 year old female with history of metastatic ovarian cancer currently chemotherapy who follows in [facility] with her last chemotherapy being about 2 weeks ago with 2 more chemotherapy sessions remaining, history of A. fib on anticoagulation, hypertension, COPD, GERD, history of DVT lower extremities, hyperlipidemia, asthma, bowel obstruction due to her metastatic cancer requiring ileostomy, recent "gallbladder infection" requiring biliary drain which is to be removed sometime in early October at [facility] who presented to ED complaining of feeling weakness for a few days with nausea and dizziness. The patient gets some home nursing and apparently she was restarted on her lisinopril about a week or so ago and ever since then she has been feeling more lethargic, weak, and having dizzy spells. At home nurse had checked her today and found that her blood pressure was in the 90s systolic and was brought to the ED. She had laboratory workup that showed mild leukocytosis but she is been receiving Neula sta. She has had no fevers. She is also noted to have mild hyperkalemia and acute kidney injury. Her sodium was 132. Patient denies any headache, fever, chills, blurry vision, chest pain, shortness of breath, abdominal pain, diarrhea, constipation, urinary symptoms, or neurological symptoms other than the dizziness. Heart rate in the 90s to low 100s. Her lowest blood pressure recorded was 89/61. She was given a couple of normal saline boluses. Past Med Surg Social Fam HX - Past Medical History Medical history: asthma, cancer, COPD, diabetes, GERD, hyperlipidemia, hypertension, other Additional medical history: ovarian cancer Psychiatric history: no psych history - Past Surgical History Surgical History: hysterectomy, other Additional surgical history: Tumor removed from ovarian cancer - Social History Smoking Status: Former smoker Smokeless Tobacco Status: No Alcohol use: none Drug use: none - Family History Mother Living Status: Hx Family Cardiac Disorders: Yes Grandmother Living Status: Hx Family Endocrine Disorder: Yes Internal Medicine - H&P: Meds Acetaminophen [Tylenol] 650 mg PO Q6HR 07/08/18 [History] Loratadine [Claritin] 10 mg PO PRN PRN 08/25/18 [History] Pantoprazole Sodium [Protonix] 40 mg PO BID 07/08/18 [History] Pravastatin Sodium [Pravachol] 40 mg PO DAILY 07/08/18 [History] Simethicone [Gas-X] 80 mg PO Q6H PRN 07/08/18 [History] Tiotropium [Spiriva] 18 mcg IH 0700 07/08/18 [History] Cholecalciferol (Vitamin D3) [Vitamin D3] 50,000 unit PO QWEEK 08/24/18 [Histor y] Cyanocobalamin (Vitamin B-12) [B-12] 2,000 mcg SL DAILY 08/24/18 [History] Ferrous Sulfate [Iron] 325 mg PO DAILY 08/24/18 [History] Isavuconazonium Sulfate [Cresemba] 2 cap PO DAILY 08/24/18 [History] Magnesium Oxide [Magnesium] 500 mg PO DAILY 08/24/18 [History] Melatonin [Melatin] 3 mg PO HS 08/24/18 [History] Mirtazapine [Remeron] 7.5 mg PO HS 08/24/18 [History] Ondansetron ODT [Zofran ODT] 4 mg SL Q6HR PRN 08/24/18 [History] Rivaroxaban [Xarelto] 20 mg PO DAILY 08/24/18 [History] Sodium Chloride [Sodium Chloride Tab] 1 gm PO TID 08/24/18 [History] Demeclocycline [Declomycin] 300 mg PO Q12HR #30 tablet 08/26/18 [Rx] Budesonide/Formoterol 160/4.5 [Symbicort 160/4.5] 2 puff IH BIDR 09/27/18 [History] Metoprolol [Lopressor] 25 mg PO BID 09/27/18 [History] Potassium Chloride [K-Tab ER] 20 meq PO DAILY 09/27/18 [History] Triamcinolone Acetonide [Nasacort] 2 spr NS DAILY 09/27/18 [History] Allergy/AdvReac Type Severity Reaction Status Date / Time ciprofloxacin [From Cipro] Allergy Rash Verified 08/24/18 03:42 prednisone Allergy Rash Verified 08/24/18 03:42 All Systems PM: A 10-system review of systems was performed and is negative for pertinent findings except as documented above in the HPI. Review of systems: All systems reviewed are negative except for what is mentioned above - Constitutional Vitals: Temp Pulse Resp BP Pulse Ox 96.9 F L 102 16 91/60 100 09/27/18 19:10 09/27/18 19:10 09/27/18 19:10 09/27/18 19:10 09/27/18 19:10 Exam: GEN: NAD HEENT: AT, NC, No cyanosis, oral mucosa is dry, No JVD Lymphatics: No lymphadenoapthy Eyes: Extrocular muscles intact, anicteric CVS:RRR. S1, S2, No m/r/g RESP: CTAB ABD: Soft, NT, ND, +BS. Ileostomy noted with loose stools. Biliary drain noted. EXT: No edema, No rashes, 2+ DP NEURO: Nonfocal, CN II-XII intact, No focal motor or sensory deficits Psych: Cooperative, Not anxious or depressed Internal Med - H&P Results - Labs CBC & Chem 7: 09/27/18 16:05 09/27/18 16:05 Labs: Short CBC 09/27/18 Range/Units 16:05 WBC 12.1 H (4.3-11.1) K/mcL Hgb 10.5 L (11.5-15.4) g/dL Hct 31.9 L (35.3-44.9) % Plt Count 79 L (140-400) K/mcL Neutrophils # 9.6 H (1.6-8.9) K/mcL BMP 09/27/18 16:05 Sodium 132 L Potassium 5.6 H Chloride 98 Carbon Dioxide 27 BUN 32 H Creatinine 1.35 H Glucose 126 H Calcium 10.8 H Cardiac Enzymes 09/27/18 Range/Units 16:05 Troponin I < 0.03 (< 0.04) ng/mL Liver Function 09/27/18 Range/Units 16:05 Total Bilirubin 0.4 (0.3-1.0) mg/dL AST 12 L (13-39) Units/L ALT 17 (7-52) Units/L Alkaline Phosphatase 148 H (34-104) Units/L Albumin 3.6 (3.5-5.7) g/dL - Impressions ITS Impressions Chest X-Ray 09/27/18 16:01 IMPRESSION: Resolved left pleural effusion. No right effusion. Hyperinflated lungs may reflect deep inspiratory effort versus obstructive small airways disease such as asthma or COPD. D/ / Jez Simon / Jez Simno Interpreting Provider: Jez Simon - Assessment and plan (1) KOBE (acute kidney injury) Current Visit: Yes Status: Acute Assessment and plan: Labs in the morning. Avoid nephrotoxins. Continue IV fluids. Likely due to dehydration. (2) Afib Current Visit: Yes Status: Acute Assessment and plan: The patient is in sinus. She states tachycardic due to dehydration. Given her borderline blood pressure I will hold her metoprolol. Continue Xarelto. Qualifiers: Atrial fibrillation type: paroxysmal Qualified Code(s): I48.0 - Paroxysmal atrial fibrillation (3) Hypotension Current Visit: Yes Status: Acute Assessment and plan: Possibly from generalized deconditioning from chemotherapy versus overmedication on antihypertensives. Probably best to hold antihypertensives at discharge if her blood pressure remains on the lower side. Continue IV fluids. Qualifiers: Hypotension type: hypotension due to drug Qualified Code(s): I95.2 - Hypotension due to drugs (4) Hyponatremia Current Visit: No Status: Resolved Assessment and plan: Sodium is 132. Likely dehydrational. We will check labs in the morning. The patient has had issues with hyponatremia in the past and was worse than this. She is on demeclocycline as well. We will monitor with labs. (5) Hyperkalemia Current Visit: Yes Status: Acute Assessment and plan: This should improve some IV fluids and improvement kidney function. We will check labs in the morning. Patient was on oral supplements of potassium at home and we will stop that. (6) Weakness Current Visit: No Status: Acute Assessment and plan: Due to dehydration and metastatic cancer and being on chemotherapy. We will get PTOT to evaluate the patient (7) COPD (chronic obstructive pulmonary disease) Current Visit: No Status: Chronic Assessment and plan: Continue home inhalers. Not in exacerbation. Qualifiers: COPD type: emphysema Emphysema type: unspecified Qualified Code(s): J43.9 - Emphysema, unspecified (8) DVT prophylaxis Current Visit: No Status: Acute Assessment and plan: On Xarelto - Time Spent With Patient Total time spent is greater than 50% in coordination of care (as documented) at patient's floor/unit and/or counseling patient:
[2018-09-27] MEDS: Budesonide/Formoterol 160/4.5 1 PUFF INH IH SCH (20:16)
[2018-09-27] MEDS: Mirtazapine 15 MG TABLET PO SCH (22:12)
[2018-09-27] MEDS: Melatonin 3 MG TABLET PO SCH (22:12)
[2018-09-28] MEDS: 0.9 % Sodium Chloride 1,000 ML IVC SCH ×3 (00:12→21:16)
[2018-09-28 05:13] LABS: Basophils % 0.3 %; Eosinophils % 0.9 %; Hematocrit 29.8 % (35.3-44.9)
[2018-09-28 05:14] LABS: Eosinophils # 0.1 K/mcL (0.0-0.6); Hemoglobin 9.9 g/dL (11.5-15.4); Immature Granulocytes % 0.7 % (0-4); Immature Platelets 5.2 % (1.1-6.1); Lymphocytes # 1.6 K/mcL (0.6-4.6); Lymphocytes % 13.8 %; Mean Corpuscular HGB Conc 33.2 g/dL (31.6-35.5); Mean Corpuscular Volume 90.3 fL (83.0-100.0); Mean Platelet Volume 10.8 fL (9.4-12.4); Monocytes # 0.8 K/mcL (0.0-1.3); Monocytes % 6.3 %; Neutrophils # 9.3 K/mcL (1.6-8.9); Red Cell Distribution Width 19.2 % (11.5-14.5)
[2018-09-28 05:16] LABS: Platelet Count 67 K/mcL (140-400)
[2018-09-28 05:33] LABS: Calcium 10.1 mg/dL (8.6-10.3); Magnesium 1.7 mg/dL (1.6-2.6); Potassium 4.7 mEq/L (3.5-5.1)
[2018-09-28] MEDS: Budesonide/Formoterol 160/4.5 1 PUFF INH IH SCH ×2 (07:53→19:45)
[2018-09-28] MEDS: Tiotropium 18 MCG inhalation IH SCH (07:54)
[2018-09-28] MEDS: *HR* Rivaroxaban 10 MG TABLET PO SCH (11:11)
[2018-09-28] MEDS: Cyanocobalamin (B-12) 1,000 MCG TABLET PO SCH (11:12)
--- NOTE | 2018-09-28 15:45 | Internal Med Progress Note ---
<Rafa Nova - Last Filed: 09/28/18 15:42> Hospitalist Progress Note - Encounter Date of Encounter: 09/28/18 Time of Encounter: 09:30 - Subjective Interval History: Patient seen and examined laying in bed. Denies acute distress, though she is frustrated at her colostomy site. Other than irritated skin around site, she notes feeling some what better today after receiving fluids. Notes continued high outtput by colostomy. Afebrile, nontoxic appearing, no acute distress. - Exam Vitals: Temp Pulse Resp BP Pulse Ox 97.8 F 111 17 91/57 96 09/28/18 12:08 09/28/18 12:08 09/28/18 12:08 09/28/18 12:08 09/28/18 12:08 Exam: GEN: NAD, thin, awake and alert HEENT: atraumatic, normocephalic, bald, mucosal membranes moist, neck supple, conjuctivae clear and sclera nonicteric. CVS:RRR. S1, S2, No m/r/g RESP: CTAB, no wheezes/rales/rhonchi ABD: Soft, NT, ND, +BS. Ileostomy noted with copious amounts of formed and watery stool in bag and leaking around attachment. EXT: No edema, No rashes, nontender NEURO: Nonfocal, CN II-XII intact, No focal motor or sensory deficits Psych: Cooperative, Not anxious or depressed - Assessment and Plan (1) KOBE (acute kidney injury) Current Visit: Yes Status: Acute Assessment and Plan: Likely secondary to dehydration/increase colostomy output. Cr improved from 1.35 to 1.3. Continue IVF Monitor labs. Avoid nephrotoxins Dispo: can likely be discharged home tomorrow if continuing to improve. (2) Hyponatremia Current Visit: No Status: Resolved (3) Dehydration Current Visit: No Status: Resolved (4) Ovarian cancer Current Visit: No Status: Chronic (5) S/P colostomy Current Visit: No Status: Chronic Assessment and Plan: Wound care consulted for assistance with colostomy leakage and skin irritation (6) Hyperkalemia Current Visit: Yes Status: Acute (7) Afib Current Visit: Yes Status: Acute Assessment and Plan: The patient is in sinus. She states tachycardic due to dehydration. Given her borderline blood pressure I will hold her metoprolol. Continue Xarelto. (8) Hypotension Current Visit: Yes Status: Acute Assessment and Plan: Possibly from generalized deconditioning from chemotherapy versus overmedication on antihypertensives. Probably best to hold antihypertensives at discharge if her blood pressure remains on the lower side. Continue IV fluids. DVT Prophylaxis: On Xarelto - Time Spent with Patient Total time spent is greater than 50% in coordination of care (as documented) at patient's floor/unit and/or counseling patient: less than 15 minutes Plan of Care Discussed with: patient Internal Medicine: Result - Labs CBC & Chem 7: 09/28/18 04:30 09/28/18 04:30 Labs: Short CBC 09/27/18 09/28/18 Range/Units 16:05 04:30 WBC 12.1 H 11.9 H (4.3-11.1) K/mcL Hgb 10.5 L 9.9 L (11.5-15.4) g/dL Hct 31.9 L 29.8 L (35.3-44.9) % Plt Count 79 L 67 L (140-400) K/mcL Neutrophils # 9.6 H 9.3 H (1.6-8.9) K/mcL BMP 09/27/18 09/28/18 16:05 04:30 Sodium 132 L 133 L Potassium 5.6 H 4.7 Chloride 98 99 Carbon Dioxide 27 25 BUN 32 H 32 H Creatinine 1.35 H 1.30 H Glucose 126 H 118 H Calcium 10.8 H 10.1 Cardiac Enzymes 09/27/18 Range/Units 16:05 Troponin I < 0.03 (< 0.04) ng/mL Liver Function 09/27/18 Range/Units 16:05 Total Bilirubin 0.4 (0.3-1.0) mg/dL AST 12 L (13-39) Units/L ALT 17 (7-52) Units/L Alkaline Phosphatase 148 H (34-104) Units/L Albumin 3.6 (3.5-5.7) g/dL - Impressions Impressions Chest X-Ray 09/27/18 16:01 IMPRESSION: Resolved left pleural effusion. No right effusion. Hyperinflated lungs may reflect deep inspiratory effort versus obstructive small airways disease such as asthma or COPD. D/ / Jez Simon / Jez Simon Interpreting Provider: Jez Simon Consult Discharge Plan - Plan Referrals: Erickson Cheney MD [Primary Care Provider] - <Zach Wall - Last Filed: 09/28/18 17:35> Hospitalist Progress Note - Encounter Date of Encounter: 09/28/18 Time of Encounter: 17:31 - Exam Vitals: Temp Pulse Resp BP Pulse Ox 97.8 F 111 17 91/57 96 09/28/18 12:08 09/28/18 12:08 09/28/18 12:08 09/28/18 12:08 09/28/18 12:08 - Assessment and Plan (1) KOBE (acute kidney injury) Current Visit: Yes Status: Acute (2) Hyponatremia Current Visit: No Status: Resolved (3) COPD (chronic obstructive pulmonary disease) Current Visit: No Status: Chronic (4) DVT prophylaxis Current Visit: No Status: Acute (5) Weakness Current Visit: No Status: Acute (6) Hyperkalemia Current Visit: Yes Status: Acute (7) Afib Current Visit: Yes Status: Acute (8) Hypotension Current Visit: Yes Status: Acute - Time Spent with Patient Total time spent is greater than 50% in coordination of care (as documented) at patient's floor/unit and/or counseling patient: Internal Medicine: Result - Labs CBC & Chem 7: 09/28/18 04:30 09/28/18 04:30 Labs: Short CBC 09/28/18 Range/Units 04:30 WBC 11.9 H (4.3-11.1) K/mcL Hgb 9.9 L (11.5-15.4) g/dL Hct 29.8 L (35.3-44.9) % Plt Count 67 L (140-400) K/mcL Neutrophils # 9.3 H (1.6-8.9) K/mcL BMP 09/28/18 04:30 Sodium 133 L Potassium 4.7 Chloride 99 Carbon Dioxide 25 BUN 32 H Creatinine 1.30 H Glucose 118 H Calcium 10.1 - Attending Attestation I saw evaluated and examined this patient and my medical decision-making was reviewed with the Resident Physician, Rafa Nova. I agree with the documented findings, disposition and treatment plan as described except to any changes set forth below. We independently had [id number] contact with the patient. Patient is awake and alert. She feels tired but better than yesterday. Denies any pain. No nausea or vomiting today. No dysuria. No hematuria. On exam, patient is awake and alert. Underweight. S1 and S2 normal. Breath sounds are normal. Abdomen is soft, nontender. Mucous membranes are moist. Acute kidney injury: Improving. We will continue IV fluids. Monitor renal function closely. Avoid nephrotoxic agents. Status post colostomy: Patient having leakage around colostomy. Wound care evaluated patient and made changes to colostomy dressing. Chronic hyponatremia: Stable and at baseline. Anemia: Chronic. Due to neoplastic disease. We will monitor blood counts closely. Patient will most likely be discharged tomorrow if renal function continues to improve. Moderate risk for complications. <Rafa Nova - Last Filed: 09/28/18 15:42> (4) Ovarian cancer Qualifiers: Laterality: unspecified laterality Qualified Code(s): C56.9 - Malignant n eoplasm of unspecified ovary (7) Afib Qualifiers: Atrial fibrillation type: paroxysmal Qualified Code(s): I48.0 - Paroxysmal atrial fibrillation (8) Hypotension Qualifiers: Hypotension type: hypotension due to drug Qualified Code(s): I95.2 - Hypotension due to drugs <Zach Wall - Last Filed: 09/28/18 17:35> (3) COPD (chronic obstructive pulmonary disease) Qualifiers: COPD type: emphysema Emphysema type: unspecified Qualified Code(s): J43.9 - Emphysema, unspecified (7) Afib Qualifiers: Atrial fibrillation type: paroxysmal Qualified Code(s): I48.0 - Paroxysmal atrial fibrillation (8) Hypotension Qualifiers: Hypotension type: hypotension due to drug Qualified Code(s): I95.2 - Hypotension due to drugs
[2018-09-28] MEDS: Fluticasone Propionate Nasal 50 MCG/SPRAY BOTTLE NS SCH (16:09)
[2018-09-28] MEDS: ISAVUCONAZONIUM SULFATE PO SCH (16:09)
[2018-09-28] MEDS: Mirtazapine 15 MG TABLET PO SCH (21:16)
[2018-09-28] MEDS: Melatonin 3 MG TABLET PO SCH (21:17)
[2018-09-29 03:51] LABS: Eosinophils % 1.1 %; Hematocrit 24.7 % (35.3-44.9); Mean Corpuscular HGB Conc 32.4 g/dL (31.6-35.5); Mean Corpuscular Volume 92.5 fL (83.0-100.0); Red Blood Count 2.67 M/mcL (3.82-4.97)
[2018-09-29 03:52] LABS: Basophils % 0.2 %; Eosinophils # 0.1 K/mcL (0.0-0.6); Immature Granulocytes % 0.4 % (0-4); Immature Platelets 4.2 % (1.1-6.1); Lymphocytes # 1.3 K/mcL (0.6-4.6); Lymphocytes % 15.2 %; Mean Platelet Volume 10.9 fL (9.4-12.4); Monocytes # 0.5 K/mcL (0.0-1.3); Monocytes % 6.2 %; Neutrophils # 6.6 K/mcL (1.6-8.9); Red Cell Distribution Width 19.8 % (11.5-14.5); Segmented Neutrophils % 76.9 %
[2018-09-29 03:53] LABS: Platelet Count 60 K/mcL (140-400)
[2018-09-29 04:14] LABS: Calcium 9.2 mg/dL (8.6-10.3); Potassium 4.3 mEq/L (3.5-5.1)
[2018-09-29 05:12] LABS: Bilirubin,Urine Negative (Negative); Blood,Urine Negative (Negative); Clarity,Urine Clear (Clear); Color,Urine Yellow (Yellow); Glucose,Urine (UA) Normal (Normal); Ketones,Urine Negative (Negative); Leukocyte Esterase,Urine Negative (Negative); Nitrite,Urine Negative (Negative); Protein,Urine Trace mg/dL (Neg-Trace); Urobilinogen,Urine Normal (Normal)
[2018-09-29 05:14] LABS: Bacteria,Urine None Seen per hpf (None-Few); Hyaline Casts,Urine None Seen per lpf (None-Few); RBC,Urine 0-3 per hpf (0-3); Squamous Epithelial Cell,Urine Many per lpf (None-Few)
[2018-09-29] MEDS: Tiotropium 18 MCG inhalation IH SCH (07:59)
[2018-09-29] MEDS: Budesonide/Formoterol 160/4.5 1 PUFF INH IH SCH (07:59)
[2018-09-29] MEDS: Cyanocobalamin (B-12) 1,000 MCG TABLET PO SCH (08:35)
[2018-09-29] MEDS: *HR* Rivaroxaban 10 MG TABLET PO SCH (08:35)
[2018-09-29] MEDS: 0.9 % Sodium Chloride 1,000 ML IVC SCH (08:36)
[2018-09-29] MEDS: Fluticasone Propionate Nasal 50 MCG/SPRAY BOTTLE NS SCH (08:37)
[2018-09-29] MEDS: ISAVUCONAZONIUM SULFATE PO SCH (08:37)
[2018-09-29 10:00] LABS: Hematocrit 29.6 % (35.3-44.9); Hemoglobin 9.3 g/dL (11.5-15.4)
[2018-09-29 11:57] VITALS: BP 110/66
--- NOTE | 2018-09-29 12:48 | Discharge Summary ---
Date of Encounter: 09/29/18 Time of Encounter: 11:30 - Discharge Diagnosis (1) KOBE (acute kidney injury) Priority: Secondary Status: Resolved Assessment and Plan: Resolved. Sodium 136. Likely secondary to dehydration. (2) Hyponatremia Priority: Secondary Status: Resolved Assessment and Plan: Likely due to dehydration. Resolved, sodium 136. She is on demeclocycline as well. (3) COPD (chronic obstructive pulmonary disease) Priority: Secondary Status: Chronic Assessment and Plan: Continue home inhalers. Not in exacerbation. Lungs are clear, pt is not using supplemental 02. Qualifiers: COPD type: emphysema Emphysema type: unspecified Qualified Code(s): J43.9 - Emphysema, unspecified (4) DVT prophylaxis Priority: Secondary Status: Acute Assessment and Plan: Continue Xarelto (5) Weakness Priority: Secondary Status: Acute Assessment and Plan: Multifactorial, likely due to dehydration, metastatic cancer, chemotherapy. PT identified needs, pt declines and doesn't want therapy . (6) Hyperkalemia Priority: Secondary Status: Resolved Assessment and Plan: Resolved, K+ 4.3 today (7) Afib Priority: Secondary Status: Acute Assessment and Plan: Monitor is NSR. Rate in high 90s, low 100s. BP is stable, Metoprolol restarted. Continue Xarelto. Qualifiers: Atrial fibrillation type: paroxysmal Qualified Code(s): I48.0 - Paroxysmal atrial fibrillation (8) Hypotension Priority: Secondary Status: Resolved Assessment and Plan: Possibly from generalized deconditioning from chemotherapy versus overmedication on antihypertensives. BP WNL, metoprolol restarted today. Qualifiers: Hypotension type: hypotension due to drug Qualified Code(s): I95.2 - Hypotension due to drugs (9) Severe protein-calorie malnutrition Priority: Secondary Status: Acute Assessment and Plan: Related to chronic illness. Patient reports 12% weight loss over the last 2 months with associated muscle/fat loss. Patient was evaluated by nutrition. Continue supplementation. (10) Anemia Priority: Secondary Status: Chronic Assessment and Plan: Patient with anemia of chronic disease, secondary to cancer and chemotherapy. This morning, hemoglobin was 8.0, rechecked again 6 hours later 9.3. Continue ferrous sulfate 325 mg by mouth daily. No need for transfusion at this time. Qualifiers: Anemia type: unspecified type Qualified Code(s): D64.9 - Anemia, unspecified Hospital course: Ms. Arzola is a 67 year old female with past medical history of ovarian cancer, COPD, hypertension, colostomy, GERD, diabetes, A. fib who presents to the emergency department with complaint of weakness for a few days with associated nausea and dizziness. Had been restarted on lisinopril approximately a week ago and ever since then she was feeling more lethargic, weak, dizzy. On the day of admission her home health nurse checked and found she was hypotensive and she was brought to the emergency department for evaluation. Initial lab workup showed mild leukocytosis, though she has been receiving Neulasta due to chemotherapy. She was found to have mild hyperkalemia and acute kidney injury, likely secondary to dehydration. Sodium is 132. She has no fever, no headache, fever, chills, blurry vision, chest pain, shortness of breath, abdominal pain, diarrhea, and no urinary symptoms. She was admitted for observation and treated with IV fluids and at the time of her discharge her acute kidney injury, hyponatremia, dehydration, hyperkalemia had resolved. She is normal sinus on the monitor with mild tachycardia, her metoprolol has been held on admission, his been restarted. Her blood pressure has been within normal limits and could tolerate her normal dose of beta enoc. Patient is also going to continue her Xarelto at discharge for her A. fib. She will follow up with [facility] for her oncology needs. Patient also has a biliary drain will be removed to [facility] in early October. Patient has a slow healing vertical wound in her left abdomen that is treated by home health nursing and wound care. While she was here, physical therapy identified needs for home, patient has declined and wishes to be sent home without therapy. At this time, patient states that she is feeling better and is stable and appropriate for discharge. Discharge discussed with: patient, family, nurse, case management - Time Spent with Patient Total time spent providing and/or coordinating discharge services: Less than 30 minutes - Discharge Medications Home Medications: Acetaminophen [Tylenol] 650 mg PO Q6HR 07/08/18 [History] Loratadine [Claritin] 10 mg PO PRN PRN 07/08/18 [History] Pantoprazole Sodium [Protonix] 40 mg PO BID 07/08/18 [History] Pravastatin Sodium [Pravachol] 40 mg PO DAILY 07/08/18 [History] Simethicone [Gas-X] 80 mg PO Q6H PRN 07/08/18 [History] Tiotropium [Spiriva] 18 mcg IH 0700 07/08/18 [History] Cholecalciferol (Vitamin D3) [Vitamin D3] 50,000 unit PO QWEEK 08/24/18 [History] Cyanocobalamin (Vitamin B-12) [B-12] 2,000 mcg SL DAILY 08/24/18 [History] Ferrous Sulfate [Iron] 325 mg PO DAILY 08/24/18 [History] Isavuconazonium Sulfate [Cresemba] 2 cap PO DAILY 08/24/18 [History] Magnesium Oxide [Magnesium] 500 mg PO DAILY 08/24/18 [History] Melatonin [Melatin] 3 mg PO HS 08/24/18 [History] Mirtazapine [Remeron] 7.5 mg PO HS 08/24/18 [History] Ondansetron ODT [Zofran ODT] 4 mg SL Q6HR PRN 08/24/18 [History] Rivaroxaban [Xarelto] 20 mg PO DAILY 08/24/18 [History] Sodium Chloride [Sodium Chloride Tab] 1 gm PO TID 08/24/18 [History] Demeclocycline [Declomycin] 300 mg PO Q12HR #30 tablet 08/26/18 [Rx] Budesonide/Formoterol 160/4.5 [Symbicort 160/4.5] 2 puff IH BIDR 09/27/18 [History] Metoprolol [Lopressor] 25 mg PO BID 09/27/18 [History] Potassium Chloride [K-Tab ER] 20 meq PO DAILY 09/27/18 [History] Triamcinolone Acetonide [Nasacort] 2 spr NS DAILY 09/27/18 [History] Allergies/Adverse Reactions: Allergy/AdvReac Type Severity Reaction Status Date / Time ciprofloxacin [From Cipro] Allergy Rash Verified 08/24/18 03:42 prednisone Allergy Rash Verified 08/24/18 03:42 Date of admission: 09/28/18 06:26 Primary care physician: Erickson Cheney Consults: 09/27/18 19:42 Consult to Occupational Therapy [CONS] Routine Comment: Evaluate, develop and implement POC Reason for Consult: therapy/placement needs Does patient have active BEDREST order?: No Is patient medically & hemodynamically stable?: Yes Consult to Physical Therapy [CONS] Routine Comment: Evaluate, develop and implement POC Reason for Consult: PT eval Does patient have active BEDREST order?: No Is patient medically & hemodynamically stable?: Yes 09/28/18 09:37 Consult to Wound Care [CONS] Routine Reason for Consult: colostomy leaking Call Completed: Yes Discharging clinician: Clarice Murray Anticipated date of discharge: 09/29/18 - Constitutional Vitals: Temp Pulse Resp BP Pulse Ox 97.8 F 102 17 110/66 99 09/29/18 11:56 09/29/18 11:56 09/29/18 11:56 09/29/18 11:56 09/29/18 11:56 General appearance: Present: cooperative, A&O X 3, pleasant, no acute distress, answers questions appropriately Exam: As above - Head Head exam: Present: atraumatic, normocephalic - Eye Eye exam: Present: PERRL, conjuntiva pink, sclera anicteric Pupils: Present: PERRL - Neck Neck exam general surgery: Present: supple, trachea midline. Absent: lymphadenopathy - Respiratory Respiratory exam: Present: CTAB. Absent: accessory muscle use, chest wall tenderness, rales, respiratory distress, rhonchi, wheezes - Cardiovascular Cardiovascular exam: Present: RRR, +S1, +S2. Absent: diastolic murmur, gallop, rubs, systolic murmur - GI/Abdominal GI/Abdominal exam: Present: normal bowel sounds, soft. Absent: distended, tenderness - Extremities Exam Extremities exam: Present: normal capillary refill, normal inspection, warm, radial pulses palpable and symmetrical. Absent: calf tenderness, cyanotic, p edal edema - Neurological Exam Neurological exam: Present: alert, CN II-XII intact, oriented X3, no focal deficits. Absent: facial droop, speech deficit - Skin Skin exam: Present: dry, intact, normal color, rash, warm - Patient Status Disposition: Home, Self-Care Condition: Good Functional capacity at discharge: independent ambulation Overall status at discharge: patient is progressing back to baseline - Discharge Instructions Follow Up With: Erickson Cheney MD [Primary Care Provider] - Additional Instructions: Call [facility] when you get home to have them deliver the bedside commode. #[phone]. Take the prescription for the hospital bed to [facility] for them to get this ordered. If they need any further documentation, they can reach out to the provider that wrote the prescription to get this completed. Please restart your normal home medications Return to the ER as needed fora ny other problems or concerns, or if your symptoms return or worsen Return to your normal diet and activities as tolerated See your PCP as scheduled for a follow up visit. - Diet and Activity Activity: increase activity as tolerated Diet: advance to your usual diet
[2018-09-29] MEDS ORDERED: Ondansetron ODT 4 MG TAB.RAPDIS SL PRN (13:04)
[2018-09-29] MEDS ORDERED: Cholecalciferol (D-3) 1,000 UNIT TABLET PO SCH (13:15)
--- NOTE | 2018-09-29 13:21 | Physician Discharge Referral ---
Home Health/Hosp Referral Info Transfer to: Home Health Provider in Charge Post Discharge: PCP - Diagnosis (1) KOBE (acute kidney injury) Priority: Primary Status: Resolved (2) Hyponatremia Priority: Secondary Status: Resolved (3) COPD (chronic obstructive pulmonary disease) Priority: Secondary Status: Chronic (4) DVT prophylaxis Priority: Secondary Status: Acute (5) Weakness Priority: Secondary Status: Acute (6) Hyperkalemia Priority: Secondary Status: Resolved (7) Afib Priority: Secondary Status: Acute (8) Hypotension Priority: Secondary Status: Resolved (9) Severe protein-calorie malnutrition Priority: Secondary Status: Acute (10) Anemia Priority: Secondary Status: Chronic - Respiratory Orders Oxygen / L per min (2 liters via nasal canula prn to maintain sats >92%) Smoking Cessation: Smoking cessation has been advised. For more information, call the [place] Tobacco Quit Line at 2-709-NUSI-NOW. - Diet/Nutrition Diet/Nutrition Orders: Regular - Activity Activity Orders: Up ad erik - Services Needed Following services are medically necessary services: Nursing, Home Health Aide - Transfer Medications Home Medications: Acetaminophen [Tylenol] 650 mg PO Q6HR 07/08/18 [History] Loratadine [Claritin] 10 mg PO PRN PRN 07/08/18 [History] Pantoprazole Sodium [Protonix] 40 mg PO BID 07/08/18 [History] Pravastatin Sodium [Pravachol] 40 mg PO DAILY 07/08/18 [History] Simethicone [Gas-X] 80 mg PO Q6H PRN 07/08/18 [History] Tiotropium [Spiriva] 18 mcg IH 0700 07/08/18 [History] Cholecalciferol (Vitamin D3) [Vitamin D3] 50,000 unit PO QWEEK 08/24/18 [History] Cyanocobalamin (Vitamin B-12) [B-12] 2,000 mcg SL DAILY 08/24/18 [History] Ferrous Sulfate [Iron] 325 mg PO DAILY 08/24/18 [History] Isavuconazonium Sulfate [Cresemba] 2 cap PO DAILY 08/24/18 [History] Magnesium Oxide [Magnesium] 500 mg PO DAILY 08/24/18 [History] Melatonin [Melatin] 3 mg PO HS 08/24/18 [History] Mirtazapine [Remeron] 7.5 mg PO HS 08/24/18 [History] Ondansetron ODT [Zofran ODT] 4 mg SL Q6HR PRN 08/24/18 [History] Rivaroxaban [Xarelto] 20 mg PO DAILY 08/24/18 [History] Sodium Chloride [Sodium Chloride Tab] 1 gm PO TID 08/24/18 [History] Demeclocycline [Declomycin] 300 mg PO Q12HR #30 tablet 08/26/18 [Rx] Budesonide/Formoterol 160/4.5 [Symbicort 160/4.5] 2 puff IH BIDR 09/27/18 [History] Metoprolol [Lopressor] 25 mg PO BID 09/27/18 [History] Potassium Chloride [K-Tab ER] 20 meq PO DAILY 09/27/18 [History] Triamcinolone Acetonide [Nasacort] 2 spr NS DAILY 09/27/18 [History] Allergies/Adverse Reactions: Allergy/AdvReac Type Severity Reaction Status Date / Time ciprofloxacin [From Cipro] Allergy Rash Verified 08/24/18 03:42 prednisone Allergy Rash Verified 08/24/18 03:42 Certification: Further, I certify that my clinical findings support that this patient is homebound (i.e. absences from home require considerable and taxing effort and are for medical reasons or shinto services or infrequently or short duration when for other reasons) because: Homebound Reason: Patient requires assistance of a person or device to safely leave home, Leaving home requires considerable and taxing effort due to cond ition Attestation: My signature below is to certify that this patient is under my care and that I, or nurse practitioner, or a physician's orthodontist assistant working with me, has a fa ce-to-face encounter with this patient.
[2018-09-29] MEDS ORDERED: Acetaminophen 325 MG TABLET PO SCH (18:00)
[2018-09-30] MEDS ORDERED: Magnesium Oxide 400 MG TABLET PO SCH (09:00)
--- NOTE | 2018-10-01 09:31 | Electrocardiograph Report ---
[place] [id number] Test Date: 2018-09-27 Pat Name: Marylu Arzola Department: [id number] Room: 3B44 Gender: F [employer]: : 1950 Requested By: Cindy Dejesus Order Number: [id number] Reading MD: Rhona Huizar Measurements Intervals [place] Rate: 110 P: 64 NM: 137 QRS: 69 QRSD: 85 T: 73 QT: 316 QTc: 428 Interpretive Statements Sinus tachycardia Electronically Signed On 10-01-2018 9:29:12 EST by Rhona Huizar
== END 2018-09-29 15:40 | disposition home or self-care (01) | DRG 682 ==
LOC: 3BNU 15:50 → EMEROOARM 15:50 → 3BNU 18:35
PROVIDERS: ADMIT Internal Medicine; ATTEND Internal Medicine

== ENCOUNTER 2018-12-09 11:43 | Inpatient (IN) ==
[2018-12-09] MEDS ORDERED: 0.9 % Sodium Chloride 1,000 ML IVC ONE ×3 (11:55→23:01)
[2018-12-09] MEDS ORDERED: *HR* HYDROmorphone (PF) 1 MG/ML SYRINGE IVP ONE ×2 (11:59→17:41)
[2018-12-09] MEDS ORDERED: Ondansetron 4 MG/2 ML VIAL IVP ONE (11:59)
--- NOTE | 2018-12-09 12:56 | Emergency Department Note ---
Disposition Clinical Impression: Ileostomy dysfunction, Tachycardia, Dehydration Disposition: Admitted As Inpatient Condition: Fair Time of Disposition: 18:33 General Adult HPI - General Chief complaint: ED Weakness Stated complaint: Dehydration Time Seen by Provider: 12/09/18 11:49 Source: EMS Limitations: no limitations - History of Present Illness HPI Narrative: Patient is a 60-year-old female with past medical history of ovarian cancer currently undergoing treatment presenting for complaints of weakness and general malaise over the last several days duration. Patient has a home health nurse who took her vitals this morning and called the squad for concerns of dehydration. Patient states that her abdomen in the area of her colostomy is red and burning, and that she has had increased output from her colostomy over the last week and a half. Patient is also complaining of nausea and vomiting, headache, and generally feeling weak. Patient continues to have problems with her sinuses cough and increased nasal discharge, which she has had for several weeks now. Patient was supposed to undergo 8th and final chemotherapy on Tuesday but she did not have appropriate platelet counts. Pain Scale: 8 - Related Data Home Medications Medication Instructions Recorded Confirmed Pantoprazole Sodium [Protonix] 40 mg PO BID 07/08/18 11/24/18 Pravastatin Sodium [Pravachol] 40 mg PO DAILY 07/08/18 11/24/18 Tiotropium [Spiriva] 2 puff IH QAM 07/08/18 11/24/18 Ferrous Sulfate [Iron] 325 mg PO QAM 08/24/18 11/24/18 Mirtazapine [Remeron] 7.5 mg PO HS 08/24/18 11/24/18 Rivaroxaban [Xarelto] 20 mg PO DAILY 08/24/18 11/24/18 Budesonide/Formoterol 160/4.5 2 puff IH BIDR 09/27/18 11/24/18 [Symbicort 160/4.5] Potassium Chloride [K-Tab ER] 20 meq PO DAILY 09/27/18 11/24/18 0.9 % Sodium Chloride [Normal 10 ml IV Q12H 10/26/18 10/26/18 Saline Flush] Cyanocobalamin (Vitamin B-12) 1,000 mcg PO BID 10/26/18 11/24/18 [Vitamin B12] Fluticasone Propionate Nasal 50 mcg NS DAILY 10/26/18 11/24/18 [Flonase] Heparin PF 300 UNIT/3 ML [Heparin 3 ml IV Q12H 10/26/18 11/24/18 Pf 300 Unit/3 ml (100/ml)] Magnesium Oxide [Magnesium] 400 mg PO QAM 10/26/18 11/24/18 Ondansetron HCl 4 mg PO Q4H 10/26/18 11/24/18 Previous Rx's Medication Instructions Recorded Amoxicillin/Clavulanate [Augmentin] 875 mg PO BIDWM #10 tablet 10/27/18 Lactobacillus [Culturelle] 2 each PO DAILY #30 cap.sprink 10/27/18 Metoprolol [Lopressor] 50 mg PO BID #60 tablet 10/27/18 metroNIDAZOLE [Flagyl] 500 mg PO TID #15 tablet 10/27/18 Allergies Allergy/AdvReac Type Severity Reaction Status Date / Time ciprofloxacin [From Cipro] Allergy Rash Verified 10/26/18 10:23 prednisone Allergy Rash Verified 10/26/18 10:23 Constitutional: Reports: weakness. Denies: fever, chills ENT ED: Denies: throat pain Cardiovascular: Denies: chest pain Respiratory: Reports: cough. 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 Absent: respiratory distress, wheezes - Cardiovascular Cardiovascular exam: Present: regular rate, irregular rhythm (known hx of afib) - Abdominal Exam Abdominal exam: Present: soft, tenderness, normal bowel sounds, other (colostomy present on RLQ with bag in place, thin, green liquid present in bag, stoma is erythematous. Several abd scars present from previous lap surgeries). Absent: distention, guarding, rebound Abdominal tenderness: Present: diffuse - Extremities Exam Extremities exam: Present: normal inspection, full ROM - Back Exam Back exam: Present: normal inspection, full ROM - Neurological Exam Neurological exam: Present: alert, oriented X3 - Psychiatric Psychiatric exam: Present: normal affect, normal mood - Skin Skin exam: Present: warm, dry, intact Course Course Narrative: Pt will be worked up for infectious etiologies, dehydration, anemia. Vital Signs Temperature 97.6 F 12/09/18 11:48 Pulse Rate 117 12/09/18 11:48 Respiratory Rate 16 12/09/18 11:48 Blood Pressure 135/86 12/09/18 11:48 O2 Sat by Pulse Oximetry 98 12/09/18 11:48 Temperature 97.6 F 12/09/18 11:48 Pulse Rate 126 12/09/18 15:57 Respiratory Rate 18 12/09/18 15:57 Blood Pressure 101/83 12/09/18 15:57 O2 Sat by Pulse Oximetry 99 12/09/18 15:57 Oxygen Delivery Oxygen Delivery Room Air Medical Decision Making - [facility] Narrative Medical decision making narrative: While patient's workup was negative for any acute signs of infection or metabolic abnormalities, pt is unable to control her pain, is unable to keep her colostomy bag from leaking, and would be more comfortable if she were admitted for pain control. Spoke with hospitalist, Dr Baumann, who agrees to accept the patient for intractable pain and colostomy management. Spoke with patient and family who understands and agrees to the plan. Pt remained stable while in the department. - Medical Records Medical records reviewed: Yes I reviewed the patient's medical records. - Lab Data Lab results reviewed: Yes I reviewed the patient's lab results. Result diagrams: 12/09/18 13:05 12/09/18 13:05 Lab Results 12/09/18 12/09/18 12/09/18 Range/Units 13:05 13:05 13:05 WBC 3.1 L (4.3-11.1) K/mcL RBC 2.87 L (3.82-4.97) M/mcL Hgb 9.7 L D (11.5-15.4) g/dL Hct 28.6 L (35.3-44.9) % MCV 99.7 (83.0-100.0) fL MCH 33.8 H (28.0-33.3) pg MCHC 33.9 (31.6-35.5) g/dL RDW 25.1 H (11.5-14.5) % Plt Count 183 (140-400) K/mcL MPV 10.1 (9.4-12.4) fL Immature Gran % 0.0 (0-4) % Seg Neutrophils % 52.2 % Lymphocytes % 27.9 % Monocytes % 16.7 % Eosinophils % 2.9 % Basophils % 0.3 % Neutrophils # 1.6 (1.6-8.9) K/mcL Lymphocytes # 0.9 (0.6-4.6) K/mcL Monocytes # 0.5 (0.0-1.3) K/mcL Eosinophils # 0.1 (0.0-0.6) K/mcL Basophils # 0.0 (0.0-0.2) K/mcL Platelet Estimate Normal (Normal) Anisocytosis 2+ A (Not Present) PT 11.2 (9.4-12.1) Seconds INR 1.0 APTT 26.9 (26.0-36.0) Seconds Sodium 135 L (136-145) mEq/L Potassium 4.4 (3.5-5.1) mEq/L Chloride 99 (98-107) mEq/L Carbon Dioxide 23 (23-29) mEq/L BUN 15 (8-23) mg/dL Creatinine 1.12 (0.60-1.20) mg/dL Est GFR ( Amer) 59 L (> 60) Est GFR (Non-Af Amer) 48 L (> 60) BUN/Creatinine Ratio 13 (6-26) Glucose 113 H (70-105) mg/dL Calculated Osmolality 282 (280-300) Lactic Acid (0.5-2.2) mmol/L Calcium 10.3 (8.6-10.3) mg/dL Phosphorus 4.2 (2.7-4.5) mg/dL Magnesium 1.5 L (1.6-2.6) mg/dL Total Bilirubin 0.4 (0.3-1.0) mg/dL Direct Bilirubin 0.1 (0.0-0.2) mg/dL Indirect Bilirubin 0.3 (0.0-1.2) mg/dL AST 10 L (13-39) Units/L ALT 8 (7-52) Units/L Alkaline Phosphatase 101 (34-104) Units/L Serum Total Protein 6.4 (6.4-8.9) g/dL Albumin 3.8 (3.5-5.7) g/dL Globulin 2.6 (2.4-3.5) g/dL Albumin/Globulin Ratio 1.5 (1.1-2.2) Urine Color (Yellow) Urine Clarity (Clear) Urine pH (5.0-8.0) pH Units Ur Specific [place] (1.010-1.025) Urine Protein (Neg-Trace) mg/dL Urine Glucose (UA) (Normal) mg/dL Urine Ketones (Negative) mg/dL Urine Blood (Negative) Urine Nitrite (Negative) Urine Bilirubin (Negative) Urine Urobilinogen (Normal) mg/dL Ur Leukocyte Esterase (Negative) Urine Microscopic RBC (0-3) per hpf Urine Microscopic WBC (0-3) per hpf Ur Squamous Epith Cells (None-Few) per lpf Urine Bacteria (None-Few) per hpf Hyaline Casts (None-Few) per lpf Urine Yeast (None Seen) per hpf Ur Culture Indicated? (NO) 12/09/18 12/09/18 Range/Units 13:05 17:17 WBC (4.3-11.1) K/mcL RBC (3.82-4.97) M/mcL Hgb (11.5-15.4) g/dL Hct (35.3-44.9) % MCV (83.0-100.0) fL MCH (28.0-33.3) pg MCHC (31.6-35.5) g/dL RDW (11.5-14.5) % Plt Count (140-400) K/mcL MPV (9.4-12.4) fL Immature Gran % (0-4) % Seg Neutrophils % % Lymphocytes % % Monocytes % % Eosinophils % % Basophils % % Neutrophils # (1.6-8.9) K/mcL Lymphocytes # (0.6-4.6) K/mcL Monocytes # (0.0-1.3) K/mcL Eosinophils # (0.0-0.6) K/mcL Basophils # (0.0-0.2) K/mcL Platelet Estimate (Normal) Anisocytosis (Not Present) PT (9.4-12.1) Seconds INR APTT (26.0-36.0) Seconds Sodium (136-145) mEq/L Potassium (3.5-5.1) mEq/L Chloride (98-107) mEq/L Carbon Dioxide (23-29) mEq/L BUN (8-23) mg/dL Creatinine (0.60-1.20) mg/dL Est GFR ( Amer) (> 60) Est GFR (Non-Af Amer) (> 60) BUN/Creatinine Ratio (6-26) Glucose (70-105) mg/dL Calculated Osmolality (280-300) Lactic Acid 1.0 (0.5-2.2) mmol/L Calcium (8.6-10.3) mg/dL Phosphorus (2.7-4.5) mg/dL Magnesium (1.6-2.6) mg/dL Total Bilirubin (0.3-1.0) mg/dL Direct Bilirubin (0.0-0.2) mg/dL Indirect Bilirubin (0.0-1.2) mg/dL AST (13-39) Units/L ALT (7-52) Units/L Alkaline Phosphatase (34-104) Units/L Serum Total Protein (6.4-8.9) g/dL Albumin (3.5-5.7) g/dL Globulin (2.4-3.5) g/dL Albumin/Globulin Ratio (1.1-2.2) Urine Color Dark Yellow (Yellow) Urine Clarity Clear (Clear) Urine pH 6.0 (5.0-8.0) pH Units Ur Specific [place] 1.027 H (1.010-1.025) Urine Protein 30 H (Neg-Trace) mg/dL Urine Glucose (UA) Normal (Normal) mg/dL Urine Ketones Negative (Negative) mg/dL Urine Blood Negative (Negative) Urine Nitrite Negative (Negative) Urine Bilirubin Small H (Negative) Urine Urobilinogen Normal (Normal) mg/dL Ur Leukocyte Esterase Small H (Negative) Urine Microscopic RBC 0-3 (0-3) per hpf Urine Microscopic WBC 5-15 H (0-3) per hpf Ur Squamous Epith Cells Many H (None-Few) per lpf Urine Bacteria None Seen (None-Few) per hpf Hyaline Casts None Seen (None-Few) per lpf Urine Yeast Moderate H (None Seen) per hpf Ur Culture Indicated? NO. A (NO) - Radiology Data Radiology results reviewed: Yes I reviewed the patient's radiology results. Chest X-Ray 12/09/18 11:57 IMPRESSION: No evidence of acute cardiopulmonary disease. D/ / Enrrique Patel MD / Enrrique Patel MD Interpreting Provider: Enrrique Patel MD Abdomen/Pelvis CT 12/09/18 12:26 IMPRESSION: 1. Redemonstration of right lower abdomen colostomy. 2. Limited evaluation of GI tract due to lack of intraluminal contrast. Postsurgical changes as noted previously. Some dilated small bowel loops in the left mid abdomen without transition point possibly related to ileus but not well evaluated. 3. Redemonstration of left lower abdomen fluid collection abutting the descending colon measuring 5.6 x 4.4 x 5.9 cm, previously reported at 4.6 x 6.1 x 8.3 cm. D/ / Gavin Galvan MD / Gavin Galvan MD Interpreting Provider: Gavin Galvan MD - EKG Data EKG #1 EKG attestation: Yes I reviewed and interpreted this EKG. EKG results narrative: Rate 123, rhythm sinus tachycardia, axis normal. IN 107, QRS 89, QTc 461. No evidence of ST elevation or depression. Low voltage in extremity leads, but no electrical alterans. Attestation Statement - Attestation Attestation: I, Judah Mcwilliams DO, examined this patient [id number] and my medical decision-making was reviewed with Dr. Arlin Lilly, Resident Physician. I agree with the documented findings, disposition and treatment plan as described except to the extent set forth below. Please see my progress notes for details.
[2018-12-09 13:46] LABS: Basophils % 0.3 %; Eosinophils # 0.1 K/mcL (0.0-0.6); Eosinophils % 2.9 %; Hematocrit 28.6 % (35.3-44.9); Lymphocytes # 0.9 K/mcL (0.6-4.6); Lymphocytes % 27.9 %; Mean Corpuscular HGB Conc 33.9 g/dL (31.6-35.5); Mean Corpuscular Hemoglobin 33.8 pg (28.0-33.3); Mean Corpuscular Volume 99.7 fL (83.0-100.0); Mean Platelet Volume 10.1 fL (9.4-12.4); Monocytes # 0.5 K/mcL (0.0-1.3); Monocytes % 16.7 %; Neutrophils # 1.6 K/mcL (1.6-8.9); Platelet Count 183 K/mcL (140-400); Red Blood Count 2.87 M/mcL (3.82-4.97); Red Cell Distribution Width 25.1 % (11.5-14.5); Segmented Neutrophils % 52.2 %
[2018-12-09 13:49] LABS: Albumin 3.8 g/dL (3.5-5.7); Albumin/Globulin Ratio 1.5 (1.1-2.2); Bilirubin,Direct 0.1 mg/dL (0.0-0.2); Bilirubin,Indirect 0.3 mg/dL (0.0-1.2); Bilirubin,Total 0.4 mg/dL (0.3-1.0); Calcium 10.3 mg/dL (8.6-10.3); Globulin 2.6 g/dL (2.4-3.5); Magnesium 1.5 mg/dL (1.6-2.6); Phosphorous 4.2 mg/dL (2.7-4.5); Potassium 4.4 mEq/L (3.5-5.1); Total Protein 6.4 g/dL (6.4-8.9)
--- NOTE | 2018-12-09 13:50 | Emergency Department Note ---
Disposition Clinical Impression: Ileostomy dysfunction, Tachycardia, Dehydration Disposition: Admitted As Inpatient Condition: Fair Referrals: Erickson Cheney MD [Primary Care Provider] - Forms: ED Satisfaction Letter Time of Disposition: 18:48 General Adult HPI - General Chief complaint: ED Weakness Stated complaint: Dehydration Time Seen by Provider: 12/09/18 11:49 Source: EMS Limitations: no limitations - History of Present Illness Pain Scale: 8 - Related Data Home Medications Medication Instructions Recorded Confirmed Pantoprazole Sodium [Protonix] 40 mg PO BID 07/08/18 11/24/18 Pravastatin Sodium [Pravachol] 40 mg PO DAILY 07/08/18 11/24/18 Tiotropium [Spiriva] 2 puff IH QAM 07/08/18 11/24/18 Ferrous Sulfate [Iron] 325 mg PO QAM 08/24/18 11/24/18 Mirtazapine [Remeron] 7.5 mg PO HS 08/24/18 11/24/18 Rivaroxaban [Xarelto] 20 mg PO DAILY 08/24/18 11/24/18 Budesonide/Formoterol 160/4.5 2 puff IH BIDR 09/27/18 11/24/18 [Symbicort 160/4.5] Potassium Chloride [K-Tab ER] 20 meq PO DAILY 09/27/18 11/24/18 0.9 % Sodium Chloride [Normal 10 ml IV Q12H 10/26/18 10/26/18 Saline Flush] Cyanocobalamin (Vitamin B-12) 1,000 mcg PO BID 10/26/18 11/24/18 [Vitamin B12] Fluticasone Propionate Nasal 50 mcg NS DAILY 10/26/18 11/24/18 [Flonase] Heparin PF 300 UNIT/3 ML [Heparin 3 ml IV Q12H 10/26/18 11/24/18 Pf 300 Unit/3 ml (100/ml)] Magnesium Oxide [Magnesium] 400 mg PO QAM 10/26/18 11/24/18 Ondansetron HCl 4 mg PO Q4H 10/26/18 11/24/18 Previous Rx's Medication Instructions Recorded Amoxicillin/Clavulanate [Augmentin] 875 mg PO BIDWM #10 tablet 10/27/18 Lactobacillus [Culturelle] 2 each PO DAILY #30 cap.sprink 10/27/18 Metoprolol [Lopressor] 50 mg PO BID #60 tablet 10/27/18 metroNIDAZOLE [Flagyl] 500 mg PO TID #15 tablet 10/27/18 Allergies Allergy/AdvReac Type Severity Reaction Status Date / Time ciprofloxacin [From Cipro] Allergy Rash Verified 10/26/18 10:23 prednisone Allergy Rash Verified 10/26/18 10:23 Constitutional: Reports: weakness. Denies: fever, chills ENT ED: Denies: throat pain Cardiovascular: Denies: chest pain Respiratory: Reports: cough. 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 - Social History Smoking Status: Former smoker Smokeless Tobacco Status: No Alcohol use: Reports: none Drug use: Reports: none Physical Exam - General Limitations: no limitations General appearance: alert Course Vital Signs Temperature 97.6 F 12/09/18 11:48 Pulse Rate 117 12/09/18 11:48 Respiratory Rate 16 12/09/18 11:48 Blood Pressure 135/86 12/09/18 11:48 O2 Sat by Pulse Oximetry 98 12/09/18 11:48 Temperature 97.6 F 12/09/18 11:48 Pulse Rate 126 12/09/18 15:57 Respiratory Rate 18 12/09/18 15:57 Blood Pressure 101/83 12/09/18 15:57 O2 Sat by Pulse Oximetry 99 12/09/18 15:57 Oxygen Delivery Oxygen Delivery Room Air Medical Decision Making - Lab Data Result diagrams: 12/09/18 13:05 12/09/18 13:05 Lab Results 12/09/18 12/09/18 12/09/18 Range/Units 13:05 13:05 13:05 WBC 3.1 L (4.3-11.1) K/mcL RBC 2.87 L (3.82-4.97) M/mcL Hgb 9.7 L D (11.5-15.4) g/dL Hct 28.6 L (35.3-44.9) % MCV 99.7 (83.0-100.0) fL MCH 33.8 H (28.0-33.3) pg MCHC 33.9 (31.6-35.5) g/dL RDW 25.1 H (11.5-14.5) % Plt Count 183 (140-400) K/mcL MPV 10.1 (9.4-12.4) fL Immature Gran % 0.0 (0-4) % Seg Neutrophils % 52.2 % Lymphocytes % 27.9 % Monocytes % 16.7 % Eosinophils % 2.9 % Basophils % 0.3 % Neutrophils # 1.6 (1.6-8.9) K/mcL Lymphocytes # 0.9 (0.6-4.6) K/mcL Monocytes # 0.5 (0.0-1.3) K/mcL Eosinophils # 0.1 (0.0-0.6) K/mcL Basophils # 0.0 (0.0-0.2) K/mcL Platelet Estimate Normal (Normal) Anisocytosis 2+ A (Not Present) PT 11.2 (9.4-12.1) Seconds INR 1.0 APTT 26.9 (26.0-36.0) Seconds Sodium 135 L (136-145) mEq/L Potassium 4.4 (3.5-5.1) mEq/L Chloride 99 (98-107) mEq/L Carbon Dioxide 23 (23-29) mEq/L BUN 15 (8-23) mg/dL Creatinine 1.12 (0.60-1.20) mg/dL Est GFR ( Amer) 59 L (> 60) Est GFR (Non-Af Amer) 48 L (> 60) BUN/Creatinine Ratio 13 (6-26) Glucose 113 H (70-105) mg/dL Calculated Osmolality 282 (280-300) Lactic Acid (0.5-2.2) mmol/L Calcium 10.3 (8.6-10.3) mg/dL Phosphorus 4.2 (2.7-4.5) mg/dL Magnesium 1.5 L (1.6-2.6) mg/dL Total Bilirubin 0.4 (0.3-1.0) mg/dL Direct Bilirubin 0.1 (0.0-0.2) mg/dL Indirect Bilirubin 0.3 (0.0-1.2) mg/dL AST 10 L (13-39) Units/L ALT 8 (7-52) Units/L Alkaline Phosphatase 101 (34-104) Units/L Serum Total Protein 6.4 (6.4-8.9) g/dL Albumin 3.8 (3.5-5.7) g/dL Globulin 2.6 (2.4-3.5) g/dL Albumin/Globulin Ratio 1.5 (1.1-2.2) Urine Color (Yellow) Urine Clarity (Clear) Urine pH (5.0-8.0) pH Units Ur Specific [place] (1.010-1.025) Urine Protein (Neg-Trace) mg/dL Urine Glucose (UA) (Normal) mg/dL Urine Ketones (Negative) mg/dL Urine Blood (Negative) Urine Nitrite (Negative) Urine Bilirubin (Negative) Urine Urobilinogen (Normal) mg/dL Ur Leukocyte Esterase (Negative) Urine Microscopic RBC (0-3) per hpf Urine Microscopic WBC (0-3) per hpf Ur Squamous Epith Cells (None-Few) per lpf Urine Bacteria (None-Few) per hpf Hyaline Casts (None-Few) per lpf Urine Yeast (None Seen) per hpf Ur Culture Indicated? (NO) 12/09/18 12/09/18 Range/Units 13:05 17:17 WBC (4.3-11.1) K/mcL RBC (3.82-4.97) M/mcL Hgb (11.5-15.4) g/dL Hct (35.3-44.9) % MCV (83.0-100.0) fL MCH (28.0-33.3) pg MCHC (31.6-35.5) g/dL RDW (11.5-14.5) % Plt Count (140-400) K/mcL MPV (9.4-12.4) fL Immature Gran % (0-4) % Seg Neutrophils % % Lymphocytes % % Monocytes % % Eosinophils % % Basophils % % Neutrophils # (1.6-8.9) K/mcL Lymphocytes # (0.6-4.6) K/mcL Monocytes # (0.0-1.3) K/mcL Eosinophils # (0.0-0.6) K/mcL Basophils # (0.0-0.2) K/mcL Platelet Estimate (Normal) Anisocytosis (Not Present) PT (9.4-12.1) Seconds INR APTT (26.0-36.0) Seconds Sodium (136-145) mEq/L Potassium (3.5-5.1) mEq/L Chloride (98-107) mEq/L Carbon Dioxide (23-29) mEq/L BUN (8-23) mg/dL Creatinine (0.60-1.20) mg/dL Est GFR ( Amer) (> 60) Est GFR (Non-Af Amer) (> 60) BUN/Creatinine Ratio (6-26) Glucose (70-105) mg/dL Calculated Osmolality (280-300) Lactic Acid 1.0 (0.5-2.2) mmol/L Calcium (8.6-10.3) mg/dL Phosphorus (2.7-4.5) mg/dL Magnesium (1.6-2.6) mg/dL Total Bilirubin (0.3-1.0) mg/dL Direct Bilirubin (0.0-0.2) mg/dL Indirect Bilirubin (0.0-1.2) mg/dL AST (13-39) Units/L ALT (7-52) Units/L Alkaline Phosphatase (34-104) Units/L Serum Total Protein (6.4-8.9) g/dL Albumin (3.5-5.7) g/dL Globulin (2.4-3.5) g/dL Albumin/Globulin Ratio (1.1-2.2) Urine Color Dark Yellow (Yellow) Urine Clarity Clear (Clear) Urine pH 6.0 (5.0-8.0) pH Units Ur Specific [place] 1.027 H (1.010-1.025) Urine Protein 30 H (Neg-Trace) mg/dL Urine Glucose (UA) Normal (Normal) mg/dL Urine Ketones Negative (Negative) mg/dL Urine Blood Negative (Negative) Urine Nitrite Negative (Negative) Urine Bilirubin Small H (Negative) Urine Urobilinogen Normal (Normal) mg/dL Ur Leukocyte Esterase Small H (Negative) Urine Microscopic RBC 0-3 (0-3) per hpf Urine Microscopic WBC 5-15 H (0-3) per hpf Ur Squamous Epith Cells Many H (None-Few) per lpf Urine Bacteria None Seen (None-Few) per hpf Hyaline Casts None Seen (None-Few) per lpf Urine Yeast Moderate H (None Seen) per hpf Ur Culture Indicated? NO. A (NO) Attestation Statement - Attestation Attestation: I, Judah Mcwilliams DO, examined this patient [id number] and my medical decision-making was reviewed with Dr. Arlin Lilly, Resident Physician. I agree with the documented findings, disposition and treatment plan as described except to the extent set forth below. Please see my progress notes for details. 68-year-old female presents emergency room from home. Patient has known ovarian cancer and is completing a chemotherapy treatment. She has left-sided anterior chest wall port. She has not ostomy in the abdomen. She has had progressively worsening help from the ostomy with water-like presentation here at this time. Home health aching to evaluate her and was concerned about dehydration secondary to tachycardia generalized malaise. He has been seen and evaluated for similar issue several times now here in the emergency room. Currently, she is denying chest pain, shortness breath. Denies any headache or vision change. She has had intermittent nausea but no vomiting. Diarrhea as described before. Denies any fevers or chills. She has not fallen or injured herself. She has no other acute complaints or symptoms at this time. Vital signs are reviewed and shows stable blood pressure with tachycardia. Temperature is normal. Patient is resting in the bed. She does appear to be mildly distressed dehydrated. Oropharynx is patent mucous membranes are dry and lips are cracked. Trachea is midline. Lungs are clear heart is regular but tachycardia. Abdomen is soft with mild diffuse tenderness noted but no guarding rigidity or peritoneal symptoms. Ostomy appears to be stable pink coloration to the ostomy site at this time. Patient denies any vaginal discharge or bleeding. Extremities appear to be normal. Fluid resuscitation will be started through the port after axis. Blood cultures will be drawn. Labs including CBC chemistry liver function testing lipase and urinalysis will be resulted. C. difficile culture will be added on secondary to the water diarrhea as well as a chemotherapy history. Patient will also have CT imaging of the abdomen to rule out any other intra-abdominal pathology at this time. Chest x-ray will also be resulted to rule out infectious etiology as well. Disposition pending full workup treatment course. See detailed documentation the physical exam, medical intervention, medical decision-making and disposition in the resident physician's note. No critical care applied the patient's treatment course at this time. 1845 Patient has been unable to tolerate the pain. Ostomy is also unable to be attached. Vital signs are stable. Patient is uncomfortable being discharged home. Labs are unremarkable at this point. Released at baseline. Patient has CT imaging that is stable. Lengthy discussion was had with the patient the family about discharge home versus admission. Patient is deciding that she feels more comfortable being admitted. Patient will be monitored closely until admission process is completed. Hospitalist Dr. Baumann reviewed the case and no other concerns or issues at this time. Patient will be admitted for symptomatically control management.
[2018-12-09 13:53] LABS: Anisocytosis 2+ (Not Present); Hemoglobin 9.7 g/dL (11.5-15.4); Platelet Estimate Normal (Normal); Prothrombin Time 11.2 Seconds (9.4-12.1)
[2018-12-09 13:56] LABS: Activated Partial Thrombo Time 26.9 Seconds (26.0-36.0)
[2018-12-09 17:31] LABS: Bilirubin,Urine Small (Negative); Blood,Urine Negative (Negative); Clarity,Urine Clear (Clear); Color,Urine Dark Yellow (Yellow); Glucose,Urine (UA) Normal (Normal); Ketones,Urine Negative (Negative); Leukocyte Esterase,Urine Small (Negative); Nitrite,Urine Negative (Negative); Protein,Urine 30 mg/dL (Neg-Trace); Specific Gravity,Urine 1.027 (1.010-1.025); Urobilinogen,Urine Normal (Normal)
[2018-12-09 17:34] LABS: Bacteria,Urine None Seen per hpf (None-Few); Hyaline Casts,Urine None Seen per lpf (None-Few); RBC,Urine 0-3 per hpf (0-3); Squamous Epithelial Cell,Urine Many per lpf (None-Few)
[2018-12-09 17:49] LABS: Yeast,Urine Moderate per hpf (None Seen)
[2018-12-09] MEDS ORDERED: Naloxone 0.4 MG/ML INJ IVP PRN (20:43)
--- NOTE | 2018-12-09 20:52 | Internal Med History&Physical ---
Date of Encounter: 12/09/18 Time of Encounter: 22:15 Internal Medicine - H&P: HPI Chief complaint: Abdominal pain, KOBE Admitted From: Emergency Dept Plans for Post Hospital Care: Home History of present illness: Ms. Arzola is a 68 year old female Patient presented to the emergency room with complaints of weakness for several days. 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 She called an ambulance and patient was taken to the hospital for further evaluation. She also states that she has had some abdominal pain in the area of her colostomy that felt like a burning sensation, which has also been more red lately. She is also noted increased ostomy output over the last week and a half. She has had nausea, vomiting as well as headache. She has had several week history of increased cough and nasal discharge. She was to complete her eighth and final chemotherapy treatment last Tuesday, but it was canceled due to her low platelet count. In the emergency room patient's white count is 3.1, hemoglobin 9.7 and platelets 183. Patient's BMP showed a GFR of 48 but normal creatinine and BUN. Patient's lactic acid was 1.0 and magnesium was 1.5. Was positive for 30 protein, small leukocyte esterase and moderate urine yeast. Chest x-ray showed no evidence of acute cardiopulmonary disease is abdomen and pelvis CT are below: 1. Redemonstration of right lower abdomen colostomy. 2. Limited evaluation of GI tract due to lack of intraluminal contrast. Postsurgical changes as noted previously. Some dilated small bowel loops in the left mid abdomen without transition point possibly related to ileus but not well evaluated. 3. Redemonstration of left lower abdomen fluid collection abutting the descending colon measuring 5.6 x 4.4 x 5.9 cm, previously reported at 4.6 x 6.1 x 8.3 cm. Due to patient's uncontrollable pain, and leaking colostomy bag patient was admitted for further pain and colostomy management. Upon my evaluation patient states her pain has eased up. She is requesting dressing for her abdominal incision. She denies nausea and vomiting, chest pain and her abdominal pain is more of a soreness at this point. Her is at bedside. She states she recently changed her home health care provider, and they did not have the correct colostomy supplies which has led to the leaking issues. She says that she will be having the correct supplies delivered to her this coming Tuesday. She has not taken her Xarelto today. Past Med Surg Social Fam HX - Past Medical History Medical history: asthma, atrial fibrillation, cancer, COPD, diabetes, GERD, hyperlipidemia, hypertension, other Additional medical history: ovarian cancer Psychiatric history: no psych history - Past Surgical History Surgical History: hysterectomy, other Additional surgical history: Tumor removed from ovarian cancer - Social History Smoking Status: Former smoker Smokeless Tobacco Status: No Alcohol use: none Drug use: none - Family History Mother Living Status: Hx Family Cardiac Disorders: Yes Hx Family Respiratory Disorders: Yes (COPD) Hx Family Cancer: No Hx Family GI Disorders: No Hx Family Endocrine Disorder: No Hx Family Neuromuscular Disorders: No Hx Family Neurologic Disorders: No Hx Family HEENT Disorders: No Hx Family Autoimmune Disorders: No Grandmother Living Status: Hx Family Cardiac Disorders: Yes Hx Family Endocrine Disorder: Yes Internal Medicine - H&P: Meds Pantoprazole Sodium [Protonix] 40 mg PO BID 07/08/18 [History] Pravastatin Sodium [Pravachol] 40 mg PO DAILY 07/08/18 [History] Tiotropium [Spiriva] 2 puff IH QAM 07/08/18 [History] Ferrous Sulfate [Iron] 325 mg PO QAM 08/24/18 [History] Mirtazapine [Remeron] 7.5 mg PO HS 08/24/18 [History] Rivaroxaban [Xarelto] 20 mg PO DAILY 08/24/18 [History] Budesonide/Formoterol 160/4.5 [Symbicort 160/4.5] 2 puff IH BIDR 09/27/18 [History] Potassium Chloride [K-Tab ER] 20 meq PO DAILY 09/27/18 [History] 0.9 % Sodium Chloride [Normal Saline Flush] 10 ml IV Q12H 10/26/18 [History] Cyanocobalamin (Vitamin B-12) [Vitamin B12] 1,000 mcg PO BID 10/26/18 [History] Fluticasone Propionate Nasal [Flonase] 50 mcg NS DAILY 10/26/18 [History] Heparin PF 300 UNIT/3 ML [Heparin Pf 300 Unit/3 ml (100/ml)] 3 ml IV Q12H 10/26/18 [History] Magnesium Oxide [Magnesium] 400 mg PO BID 10/26/18 [History] Ondansetron HCl 4 mg PO Q6H PRN 10/26/18 [History] Acetaminophen [Tylenol] 650 mg PO Q6HR PRN 12/09/18 [History] Albuterol Sulfate 2.5 mg IH TID PRN 12/09/18 [History] Albuterol Sulfate [Ventolin Hfa] 18 gm IH Q4H PRN 12/09/18 [History] GuaiFENesin ER [Mucinex] 600 mg PO Q12H PRN 12/09/18 [History] Lactobacillus [Culturelle] 2 each PO BID 12/09/18 [History] Metoprolol Succinate [Toprol Xl] 50 mg PO DAILY 12/09/18 [History] Simethicone [Gas-X] 80 mg PO Q6H PRN 12/09/18 [History] Sodium Chloride [Sodium Chloride Tab] 1 gm PO TID 12/09/18 [History] Allergy/AdvReac Type Severity Reaction Status Date / Time ciprofloxacin [From Cipro] Allergy Rash Verified 10/26/18 10:23 prednisone Allergy Rash Verified 10/26/18 10:23 All Systems PM: A 10-system review of systems was performed and is negative for pertinent findings except as documented above in the HPI. - Constitutional Vitals: Temp Pulse Resp BP Pulse Ox 97.6 F 104 16 122/93 100 12/09/18 11:48 12/09/18 19:57 12/09/18 19:57 12/09/18 19:57 12/09/18 19:57 General appearance: Present: cooperative, A&O X 3, pleasant, no acute distress, answers questions appropriately Exam: - - Head Head exam: Present: normal inspection - Eye Eye exam: Present: EOMI, normal appearance - Respiratory Respiratory exam: Present: CTAB. Absent: rales, respiratory distress, rhonchi, wheezes - Cardiovascular Cardiovascular exam: Present: RRR. Absent: diastolic murmur, systolic murmur - GI/Abdominal GI/Abdominal exam: Present: normal bowel sounds, soft, tenderness Additional comments: Large well-healing abdominal scar on left side. Erythema surrounding the ostomy site Tenderness to palpation surrounding the ostomy site Colostomy in the right lower abdomen - Extremities Exam Extremities exam: Present: warm, radial pulses palpable and symmetrical. Absent: calf tenderness, pedal edema, tenderness - Neurological Exam Neurological exam: Present: no focal deficits. Absent: motor sensory deficit, strengths equal and symetr throughout, facial droop, speech deficit Additional comments: Left lower extremity weaker than right lower extremity, strength 4 out of 5 - Skin Skin exam: Present: dry, erythema, normal color, warm Additional comments: Erythema surrounding ostomy site from irritation due to leakage Internal Med - H&P Results - Labs CBC & Chem 7: 12/09/18 13:05 12/09/18 13:05 Labs: Short CBC 12/09/18 Range/Units 13:05 WBC 3.1 L (4.3-11.1) K/mcL Hgb 9.7 L D (11.5-15.4) g/dL Hct 28.6 L (35.3-44.9) % Plt Count 183 (140-400) K/mcL Neutrophils # 1.6 (1.6-8.9) K/mcL BMP 12/09/18 13:05 Sodium 135 L Potassium 4.4 Chloride 99 Carbon Dioxide 23 BUN 15 Creatinine 1.12 Glucose 113 H Calcium 10.3 Liver Function 12/09/18 Range/Units 13:05 Total Bilirubin 0.4 (0.3-1.0) mg/dL Direct Bilirubin 0.1 (0.0-0.2) mg/dL AST 10 L (13-39) Units/L ALT 8 (7-52) Units/L Alkaline Phosphatase 101 (34-104) Units/L Albumin 3.8 (3.5-5.7) g/dL Urine 12/09/18 Range/Units 17:17 Urine Color Dark Yellow (Yellow) Urine Clarity Clear (Clear) Urine pH 6.0 (5.0-8.0) pH Units Ur Specific [place] 1.027 H (1.010-1.025) Urine Protein 30 H (Neg-Trace) mg/dL Urine Glucose (UA) Normal (Normal) mg/dL - Impressions ITS Impressions Chest X-Ray 12/09/18 11:57 IMPRESSION: No evidence of acute cardiopulmonary disease. D/ / Enrrique Patel MD / Enrrique Patel MD Interpreting Provider: Enrrique Patel MD Abdomen/Pelvis CT 12/09/18 12:26 IMPRESSION: 1. Redemonstration of right lower abdomen colostomy. 2. Limited evaluation of GI tract due to lack of intraluminal contrast. Postsurgical changes as noted previously. Some dilated small bowel loops in the left mid abdomen without transition point possibly related to ileus but not well evaluated. 3. Redemonstration of left lower abdomen fluid collection abutting the descending colon measuring 5.6 x 4.4 x 5.9 cm, previously reported at 4.6 x 6.1 x 8.3 cm. D/ / Gavin Galvan MD / Gavin Galvan MD Interpreting Provider: Gavin Galvan MD - Assessment and plan (1) Ileostomy dysfunction Current Visit: Yes Status: Acute Assessment and plan: Leaking due to improper fitting colostomy bag. Patient has also had higher than normal output. C. difficile negative. Colostomy care orders Follow-up GI stool panel Dressing and skin care (2) Candiduria Current Visit: Yes Status: Acute Assessment and plan: Patient had moderate urine yeast on her UA. Due to her neutropenia and history of chemotherapy will treat with oral fluconazole. (3) KOBE (acute kidney injury) Current Visit: No Status: Resolved Assessment and plan: Patient has had diarrhea, nausea and vomiting at home. She received 2 L of IV fluids in the emergency room. 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 Slightly low magnesium of 1.5. Potassium within normal limits. (6) Ovarian cancer Current Visit: No Status: Chronic Assessment and plan: Patient is managed by [facility] oncology. Next chemotherapy appointment in the coming week. Qualifiers: Qualified Code(s): C56.9 - Malignant neoplasm of unspecified ovary (7) DVT prophylaxis Current Visit: No Status: Acute Assessment and plan: Continue home Xarelto - Time Spent With Patient Total time spent is greater than 50% in coordination of care (as documented) at patient's floor/unit and/or counseling patient: Greater than 35 minutes
[2018-12-09] MEDS ORDERED: Acetaminophen 325 MG TABLET PO PRN (22:57)
[2018-12-09] MEDS ORDERED: Fluconazole 100 MG TABLET PO SCH (23:15)
[2018-12-09] MEDS: *HR* Rivaroxaban 10 MG TABLET PO SCH (23:31)
[2018-12-09] MEDS: Mirtazapine 15 MG TABLET PO SCH (23:31)
[2018-12-09] MEDS ORDERED: D5% in Water 1,000 ML IVC PRN (23:34)
[2018-12-09] MEDS ORDERED: Dextrose Gel 15 GM/37.5 ML TUBE PO PRN ×2 (23:34)
[2018-12-09] MEDS ORDERED: *HR* Dextrose 50 % in Water (Syg) 50 ML SYRINGE IVP PRN (23:34)
[2018-12-10] MEDS: Neosporin OINT 15 GM TUBE TP SCH ×3 (00:25→21:15)
[2018-12-10 00:33] LABS: Adenovirus F 40/41 PCR Not detected (Not detect); Astrovirus PCR Not detected (Not detect); C.difficile Toxin A/B Gene PCR Not detected (Not detect); Campylobacter by PCR Not detected (Not detect); Cryptosporidium by PCR Not detected (Not detect); Cyclospora cayetanensis PCR Not detected (Not detect); E. coli O157 by PCR Not detected (Not detect); Entamoeba histolytica PCR Not detected (Not detect); Enteroaggregative E.coli(EAEC) Not detected (Not detect); Enteropathogenic E.coli(EPEC) Not detected (Not detect); Enterotoxigenic E.coli (ETEC) Not detected (Not detect); Giardia lamblia PCR Not detected (Not detect); Norovirus GI/GII PCR Not detected (Not detect); Plesiomonas shigelloides PCR Not detected (Not detect); Rotavirus A PCR Not detected (Not detect); Salmonella PCR Not detected (Not detect); Sapovirus PCR Not detected (Not detect); Shig/EnteroinvasiveE coli EIEC Not detected (Not detect); Shigalike tox-prod E coli STEC Not detected (Not detect); Vibrio PCR Not detected (Not detect); Vibrio cholerae PCR Not detected (Not detect); Yersinia enterocolitica PCR Not detected (Not detect)
[2018-12-10] MEDS: *HR* HYDROcodone/Acet 5/325 mg TABLET PO PRN ×2 (02:26→17:38)
[2018-12-10 04:41] LABS: Hematocrit 23.6 % (35.3-44.9); Mean Corpuscular HGB Conc 33.1 g/dL (31.6-35.5); Mean Corpuscular Hemoglobin 33.8 pg (28.0-33.3); Mean Corpuscular Volume 102.2 fL (83.0-100.0); Mean Platelet Volume 9.7 fL (9.4-12.4); Platelet Count 158 K/mcL (140-400); Red Blood Count 2.31 M/mcL (3.82-4.97); Red Cell Distribution Width 25.1 % (11.5-14.5)
[2018-12-10 04:42] LABS: Hemoglobin 7.8 g/dL (11.5-15.4)
[2018-12-10 04:57] LABS: BUN/Creatinine Ratio 11 (6-26); Blood Urea Nitrogen 10 mg/dL (8-23); Calcium 8.7 mg/dL (8.6-10.3); Carbon Dioxide 21 mEq/L (23-29); Chloride 109 mEq/L (98-107); Glucose 117 mg/dL (70-105); Magnesium 1.3 mg/dL (1.6-2.6); Osmolality,Calculated 284 (280-300); Potassium 4.4 mEq/L (3.5-5.1); Sodium 137 mEq/L (136-145); eGFR For Non-African Americans > 60 (> 60)
[2018-12-10] MEDS: *HR* OxyCODONE Immed Rel 5 MG TABLET PO PRN ×3 (06:55→21:27)
[2018-12-10] MEDS: Insulin LISPRO 300 UNITS/3 ML VIAL SQ SCH ×4 (09:03→21:15)
[2018-12-10] MEDS: Metoprolol XL (24 HR) Succ 50 MG TAB.ER.24H PO SCH (09:28)
[2018-12-10] MEDS ORDERED: Acetaminophen IV 1,000 MG/100 ML INFUS..BTL IVPB ONE (09:36)
[2018-12-10] MEDS: Magnesium Oxide 400 MG TABLET PO SCH ×2 (10:31→21:15)
[2018-12-10] MEDS: Fluconazole 100 MG TABLET PO SCH (10:31)
[2018-12-10] MEDS: *HR* Rivaroxaban 10 MG TABLET PO SCH (10:31)
[2018-12-10 11:00] LABS: Basophils % 0.4 %; Eosinophils # 0.1 K/mcL (0.0-0.6); Eosinophils % 3.3 %; Hematocrit 26.3 % (35.3-44.9); Hemoglobin 8.6 g/dL (11.5-15.4); Immature Granulocytes % 0.4 % (0-4); Lymphocytes # 1.1 K/mcL (0.6-4.6); Lymphocytes % 39.6 %; Mean Corpuscular HGB Conc 32.7 g/dL (31.6-35.5); Mean Corpuscular Hemoglobin 33.1 pg (28.0-33.3); Mean Corpuscular Volume 101.2 fL (83.0-100.0); Monocytes # 0.4 K/mcL (0.0-1.3); Monocytes % 15.2 %; Neutrophils # 1.1 K/mcL (1.6-8.9); Nucleated Red Blood Cells 0.7 /100 WBC (0); Platelet Count 172 K/mcL (140-400); Red Cell Distribution Width 25.3 % (11.5-14.5); Segmented Neutrophils % 41.1 %
[2018-12-10] MEDS: 0.9 % Sodium Chloride 500 ML IVC SCH (11:15)
--- NOTE | 2018-12-10 12:15 | Internal Med Progress Note ---
Hospitalist Progress Note - Encounter Date of Encounter: 12/11/18 Time of Encounter: 11:00 - Subjective Interval History: 68 y/o female with PMHx of Asthma, COPD, Atrial Fibrillation, DM, GERD, HTN, HLD Ovarian Ca on Chemo, s/p surgery and partial colectomy w/ ostomy bag admitted for dehydration and leakage around ostomy bag. Pt seen and examined at bedside. Pt's ostomy site actively leaking, pt c/o pain around site. Site appears severely irritated w/ erythema - Exam Vitals: Temp Pulse Resp BP Pulse Ox 97.9 F 80 16 120/76 98 12/10/18 12:04 12/10/18 12:04 12/10/18 12:04 12/10/18 12:04 12/10/18 12:04 Exam: General - Pt laying in bed in pain while RN tries to place bag HEENT - NC/AT, PERRLA, dry MM Neck - supple, no LN Lungs - CTA b/l CVS - nl S1, S2, RRR Abdomen - left side scar, right ostomy leaking all around, surrounding erythema, tender Ext - no edema Neuro - No focal deficits Skin - aside from abd as above, no rash or lesions - Summary of Assessment and Plan Summary of Assessment and Plan: 68 y/o female with PMHx of Asthma, COPD, Atrial Fibrillation, DM, GERD, HTN, HLD Ovarian Ca on Chemo, s/p surgery and partial colectomy w/ ostomy bag admitted for dehydration and leakage around ostomy bag. Ileostomy dysfunction, leaking - Leaking due to improper fitting colostomy bag. - high output - Cdiff neg - Dressing and skin care need; wound care consult placed (no wound care this weekend, will have surgery see) - c/w IVF Candiduria - pt started on Diflucan due to immunocompromised state Dehydration Patient has had diarrhea, nausea and vomiting at home. - Pt s/p 2L Bolus in ED, c/w IVF Diabetes - FS qAC and HS - c/w Low-dose insulin sliding scale as needed Hypomagnesemia - replete Ovarian cancer - Next chemotherapy appointment in the coming week. - outpt f/u w/ oncology Atrial Fibrillation - HR controlled - hold BB for now due to soft BP - c/w Xarelto DVT prophylaxis c/w - Xarelto - Time Spent with Patient Total time spent is greater than 50% in coordination of care (as documented) at patient's floor/unit and/or counseling patient: 25 - 35 minutes Plan of Care Discussed with: patient Internal Medicine: Result - Labs CBC & Chem 7: 12/11/18 13:30 12/11/18 04:00 Labs: Short CBC 12/09/18 12/10/18 12/10/18 Range/Units 13:05 04:25 10:19 WBC 3.1 L 2.4 L 2.7 L (4.3-11.1) K/mcL Hgb 9.7 L D 7.8 L D 8.6 L (11.5-15.4) g/dL Hct 28.6 L 23.6 L 26.3 L (35.3-44.9) % Plt Count 183 158 172 (140-400) K/mcL Neutrophils # 1.6 (1.6-8.9) K/mcL BMP 12/09/18 12/10/18 13:05 04:25 Sodium 135 L 137 Potassium 4.4 4.4 Chloride 99 109 H Carbon Dioxide 23 21 L BUN 15 10 Creatinine 1.12 0.92 Glucose 113 H 117 H Calcium 10.3 8.7 Liver Function 12/09/18 Range/Units 13:05 Total Bilirubin 0.4 (0.3-1.0) mg/dL Direct Bilirubin 0.1 (0.0-0.2) mg/dL AST 10 L (13-39) Units/L ALT 8 (7-52) Units/L Alkaline Phosphatase 101 (34-104) Units/L Albumin 3.8 (3.5-5.7) g/dL Urine 12/09/18 Range/Units 17:17 Urine Color Dark Yellow (Yellow) Urine Clarity Clear (Clear) Urine pH 6.0 (5.0-8.0) pH Units Ur Specific [place] 1.027 H (1.010-1.025) Urine Protein 30 H (Neg-Trace) mg/dL Urine Glucose (UA) Normal (Normal) mg/dL - ABG Interpretation ABG results: PT/INR, D-dimer PT 11.2 Seconds (9.4-12.1) 12/09/18 13:05 - Impressions Impressions Chest X-Ray 12/09/18 11:57 IMPRESSION: No evidence of acute cardiopulmonary disease. D/ / Enrrique Patel MD / Enrrique Patel MD Interpreting Provider: Enrrique Patel MD Abdomen/Pelvis CT 12/09/18 12:26 IMPRESSION: 1. Redemonstration of right lower abdomen colostomy. 2. Limited evaluation of GI tract due to lack of intraluminal contrast. Postsurgical changes as noted previously. Some dilated small bowel loops in the left mid abdomen without transition point possibly related to ileus but not well evaluated. 3. Redemonstration of left lower abdomen fluid collection abutting the descending colon measuring 5.6 x 4.4 x 5.9 cm, previously reported at 4.6 x 6.1 x 8.3 cm. D/ / Gavin Galvan MD / Gavin Galvan MD Interpreting Provider: Gavin Galvan MD Consult Discharge Plan - Plan Referrals: Erickson Cheney MD [Primary Care Provider] -
[2018-12-10 13:03] LABS: Anisocytosis 2+ (Not Present); Platelet Estimate Normal (Normal)
--- NOTE | 2018-12-10 13:10 | Event Note ---
Date of Encounter: 12/10/18 Time of Encounter: 13:09 Patient well known to me due to our encounters in my wound/ostomy clinic; called 2/2 leaking around the ostomy; went to evaluate and nurses were able to control it. will cont to monitor and consult ostomy nurses on 12/11;
[2018-12-10] MEDS: Mirtazapine 15 MG TABLET PO SCH (21:15)
[2018-12-11 04:50] LABS: Basophils % 0.3 %; Eosinophils # 0.1 K/mcL (0.0-0.6); Eosinophils % 2.8 %; Hematocrit 23.3 % (35.3-44.9); Hemoglobin 7.6 g/dL (11.5-15.4); Immature Platelets 2.5 % (1.1-6.1); Lymphocytes # 1.2 K/mcL (0.6-4.6); Lymphocytes % 36.5 %; Mean Corpuscular HGB Conc 32.6 g/dL (31.6-35.5); Mean Corpuscular Hemoglobin 33.6 pg (28.0-33.3); Mean Corpuscular Volume 103.1 fL (83.0-100.0); Mean Platelet Volume 10.1 fL (9.4-12.4); Monocytes # 0.5 K/mcL (0.0-1.3); Monocytes % 16.4 %; Neutrophils # 1.4 K/mcL (1.6-8.9); Platelet Count 199 K/mcL (140-400); Red Blood Count 2.26 M/mcL (3.82-4.97); Red Cell Distribution Width 25.8 % (11.5-14.5)
[2018-12-11 05:03] LABS: BUN/Creatinine Ratio 14 (6-26); Blood Urea Nitrogen 15 mg/dL (8-23); Calcium 8.8 mg/dL (8.6-10.3); Carbon Dioxide 24 mEq/L (23-29); Chloride 107 mEq/L (98-107); Glucose 114 mg/dL (70-105); Magnesium 1.2 mg/dL (1.6-2.6); Osmolality,Calculated 286 (280-300); Phosphorous 3.7 mg/dL (2.7-4.5); Potassium 4.5 mEq/L (3.5-5.1); Sodium 137 mEq/L (136-145); eGFR For Non-African Americans 51 (> 60)
[2018-12-11 05:52] LABS: Platelet Estimate Normal (Normal)
[2018-12-11 08:00] LABS: % Iron Saturation 20 % (15-50); Iron 52 mcg/dL (50-170); Transferrin 184 mg/dL (203-362)
[2018-12-11] MEDS: Metoprolol XL (24 HR) Succ 50 MG TAB.ER.24H PO SCH (08:48)
[2018-12-11] MEDS: Fluconazole 100 MG TABLET PO SCH (08:48)
[2018-12-11] MEDS: *HR* Rivaroxaban 15 MG TABLET PO SCH (08:48)
[2018-12-11] MEDS: Magnesium Oxide 400 MG TABLET PO SCH ×2 (08:48→21:55)
[2018-12-11] MEDS: Insulin LISPRO 300 UNITS/3 ML VIAL SQ SCH ×4 (08:49→21:49)
[2018-12-11] MEDS: Simethicone 80 MG TAB.CHEW PO PRN ×2 (12:30→22:05)
[2018-12-11] MEDS ORDERED: 0.9 % Sodium Chloride 1,000 ML IVC SCH (13:00)
[2018-12-11 13:54] LABS: Basophils % 0.3 %; Eosinophils # 0.1 K/mcL (0.0-0.6); Eosinophils % 2.3 %; Hematocrit 26.8 % (35.3-44.9); Hemoglobin 8.8 g/dL (11.5-15.4); Immature Granulocytes % 0.3 % (0-4); Lymphocytes % 28.2 %; Mean Corpuscular HGB Conc 32.8 g/dL (31.6-35.5); Mean Corpuscular Hemoglobin 33.2 pg (28.0-33.3); Mean Corpuscular Volume 101.1 fL (83.0-100.0); Mean Platelet Volume 9.7 fL (9.4-12.4); Monocytes # 0.6 K/mcL (0.0-1.3); Monocytes % 16.1 %; Platelet Count 203 K/mcL (140-400); Red Blood Count 2.65 M/mcL (3.82-4.97); Red Cell Distribution Width 25.8 % (11.5-14.5); Segmented Neutrophils % 52.8 %
[2018-12-11 13:57] LABS: Neutrophils # 1.9 K/mcL (1.6-8.9)
[2018-12-11 14:22] LABS: Anisocytosis 1+ (Not Present); Platelet Estimate Normal (Normal)
[2018-12-11] MEDS: Neosporin OINT 15 GM TUBE TP SCH ×2 (14:24→21:59)
--- NOTE | 2018-12-11 14:58 | Electrocardiograph Report ---
[place] [id number] Test Date: 2018-12-09 Pat Name: Marylu Arzola Department: [id number] Room: 3A63 Gender: F Plugman: : 1950 Requested By: Arlin Lilly Order Number: [id number] Reading MD: Samy Cornejo Measurements Intervals [place] Rate: 123 P: -6 [place]: 107 QRS: 39 QRSD: 89 T: 53 QT: 322 QTc: 461 Interpretive Statements Sinus tachycardia Low voltage, extremity leads Electronically Signed On 12-11-2018 14:56:42 EST by Samy Cornejo
[2018-12-11] MEDS ORDERED: NON-FORMULARY MEDICATION 1 EACH EACH (Albuterol Sulfate [Albuterol Sulfate] 2.5 MG) IH PRN (15:36)
[2018-12-11] MEDS: Budesonide/Formoterol 160/4.5 1 PUFF INH IH SCH ×2 (16:28→20:52)
[2018-12-11] MEDS: 0.9 % Sodium Chloride 500 ML IVC SCH ×2 (19:51→19:52)
--- NOTE | 2018-12-11 20:29 | Internal Med Progress Note ---
Hospitalist Progress Note - Encounter Date of Encounter: 12/11/18 Time of Encounter: 15:00 - Subjective Interval History: 68 y/o female with PMHx of Asthma, COPD, Atrial Fibrillation, DM, GERD, HTN, HLD Ovarian Ca on Chemo, s/p surgery and partial colectomy w/ ostomy bag admitted for dehydration and leakage around ostomy bag. Pt seen and examined at bedside. Pt appears much better, still c/o mild nausea, pt pain improved, RN able to place ostomy bag, still with intermittent leakage but glued off for now. Pt still also c/o feeling weak. - Exam Vitals: Temp Pulse Resp BP Pulse Ox 97.6 F 77 15 107/60 95 12/11/18 15:41 12/11/18 15:41 12/11/18 15:41 12/11/18 15:41 12/11/18 15:41 Exam: General - Pt laying in bed in NAD, eating breakfast HEENT - NC/AT, PERRLA, dry MM Neck - supple, no LN Lungs - CTA b/l CVS - nl S1, S2, RRR Abdomen - left side scar, right ostomy bag, no more leakage, surrounding erythema, abdomen still sore, BS + Ext - no edema Neuro - No focal deficits Skin - aside from abd as above, no rash or lesions - Summary of Assessment and Plan Summary of Assessment and Plan: 68 y/o female with PMHx of Asthma, COPD, Atrial Fibrillation, DM, GERD, HTN, HLD Ovarian Ca on Chemo, s/p surgery and partial colectomy w/ ostomy bag admitted for dehydration and leakage around ostomy bag. Ileostomy dysfunction, leaking - Leaking due to improper fitting colostomy bag now patched up by RN - still w/ high output - Cdiff neg - wound care to see today - c/w IVF Anemia - likely Diultional - pt on Chemo likely anemic due to that - stool apears brown, no blood or melena, low abhi for bleed - cont to monitor - f/u B12 and folate levels - c/w iron, B12 Candiduria - pt started on Diflucan due to immunocompromised state Dehydration Patient has had diarrhea, nausea and vomiting at home. - Pt s/p 2L Bolus in ED, - c/w IVF Diabetes - FS qAC and HS - c/w Low-dose insulin sliding scale as needed Hypomagnesemia - replete Ovarian cancer - Next chemotherapy appointment in the coming week. - outpt f/u w/ oncology Atrial Fibrillation - HR controlled - hold BB for now due to soft BP - c/w Xarelto DVT prophylaxis c/w - Xarelto Dispo - can likely be d/travis in am - Time Spent with Patient Total time spent is greater than 50% in coordination of care (as documented) at patient's floor/unit and/or counseling patient: Plan of Care Discussed with: patient Internal Medicine: Result - Labs CBC & Chem 7: 12/11/18 13:30 12/11/18 04:00 Labs: Short CBC 12/11/18 12/11/18 Range/Units 04:00 13:30 WBC 3.2 L 3.5 L (4.3-11.1) K/mcL Hgb 7.6 L 8.8 L (11.5-15.4) g/dL Hct 23.3 L 26.8 L (35.3-44.9) % Plt Count 199 203 (140-400) K/mcL Neutrophils # 1.4 L 1.9 (1.6-8.9) K/mcL BMP 12/11/18 04:00 Sodium 137 Potassium 4.5 Chloride 107 Carbon Dioxide 24 BUN 15 Creatinine 1.07 Glucose 114 H Calcium 8.8 - ABG Interpretation ABG results: PT/INR, D-dimer PT 11.2 Seconds (9.4-12.1) 12/09/18 13:05 Consult Discharge Plan - Plan Referrals: Erickson Cheney MD [Primary Care Provider] -
[2018-12-11] MEDS: Mirtazapine 15 MG TABLET PO SCH (21:55)
[2018-12-11] MEDS: Cyanocobalamin (B-12) 1,000 MCG TABLET PO SCH (21:55)
[2018-12-11] MEDS: Lactobacillus 1 EACH CAP.SPRINK PO SCH (21:57)
[2018-12-11] MEDS: *HR* HYDROcodone/Acet 5/325 mg TABLET PO PRN (22:16)
[2018-12-12] MEDS: Budesonide/Formoterol 160/4.5 1 PUFF INH IH SCH ×2 (07:57→22:25)
[2018-12-12] MEDS: Tiotropium 18 MCG inhalation IH SCH (07:58)
[2018-12-12] MEDS: Lactobacillus 1 EACH CAP.SPRINK PO SCH ×2 (08:34→20:42)
[2018-12-12] MEDS: Insulin LISPRO 300 UNITS/3 ML VIAL SQ SCH ×3 (08:34→20:22)
[2018-12-12] MEDS: Fluconazole 100 MG TABLET PO SCH (08:35)
[2018-12-12] MEDS: Magnesium Oxide 400 MG TABLET PO SCH ×2 (08:35→20:43)
[2018-12-12] MEDS: Cyanocobalamin (B-12) 1,000 MCG TABLET PO SCH ×2 (08:35→20:45)
[2018-12-12] MEDS: *HR* Rivaroxaban 15 MG TABLET PO SCH (08:35)
[2018-12-12] MEDS: Neosporin OINT 15 GM TUBE TP SCH ×2 (08:36→20:35)
[2018-12-12] MEDS: *HR* HYDROcodone/Acet 5/325 mg TABLET PO PRN (08:52)
[2018-12-12 09:14] LABS: Hematocrit 26.4 % (35.3-44.9); Hemoglobin 8.8 g/dL (11.5-15.4); Mean Corpuscular HGB Conc 33.3 g/dL (31.6-35.5); Mean Corpuscular Hemoglobin 33.8 pg (28.0-33.3); Mean Corpuscular Volume 101.5 fL (83.0-100.0); Platelet Count 207 K/mcL (140-400); Red Cell Distribution Width 25.9 % (11.5-14.5)
[2018-12-12 09:19] LABS: Folate 11.5 ng/mL (3.0-16.0)
[2018-12-12 09:38] LABS: BUN/Creatinine Ratio 14 (6-26); Blood Urea Nitrogen 14 mg/dL (8-23); Calcium 9.9 mg/dL (8.6-10.3); Carbon Dioxide 23 mEq/L (23-29); Chloride 104 mEq/L (98-107); Glucose 130 mg/dL (70-105); Magnesium 1.9 mg/dL (1.6-2.6); Osmolality,Calculated 280 (280-300); Phosphorous 3.4 mg/dL (2.7-4.5); Potassium 4.4 mEq/L (3.5-5.1); Sodium 134 mEq/L (136-145); eGFR For Non-African Americans 55 (> 60)
[2018-12-12 10:00] LABS: Anisocytosis 3+ (Not Present); Eosinophils # 0.2 K/mcL (0.0-0.6); Lymphocytes # 0.9 K/mcL (0.6-4.6); Monocytes # 0.6 K/mcL (0.0-1.3); Neutrophils # 1.6 K/mcL (1.6-8.9); Platelet Estimate Normal (Normal); Polychromasia 1+ (Not Present)
--- NOTE | 2018-12-12 12:59 | Internal Med Progress Note ---
Hospitalist Progress Note - Encounter Date of Encounter: 12/12/18 Time of Encounter: 12:55 - Subjective Interval History: 68 y/o female with PMHx of Asthma, COPD, Atrial Fibrillation, DM, GERD, HTN, HLD Ovarian Ca on Chemo, s/p surgery and partial colectomy w/ ostomy bag admitted for dehydration and leakage around ostomy bag. Pt seen and examined at bedside. Pt reports she feels better, soreness improved, RN able to place ostomy bag, still with intermittent leakage requiring more gluing.. - Exam Vitals: Temp Pulse Resp BP Pulse Ox 98.2 F 87 18 119/81 96 12/12/18 11:07 12/12/18 11:07 12/12/18 11:07 12/12/18 11:07 12/12/18 11:07 Exam: General - Pt laying in bed in NAD HEENT - NC/AT, PERRLA, oropharynx no exudates Neck - supple, no LN Lungs - CTA b/l CVS - nl S1, S2, RRR Abdomen - left side scar, right ostomy bag, no more leakage, surrounding erythema, abdomen still sore, BS + Ext - no edema Neuro - No focal deficits Skin - aside from abd as above, no rash or lesions - Summary of Assessment and Plan Summary of Assessment and Plan: 68 y/o female with PMHx of Asthma, COPD, Atrial Fibrillation, DM, GERD, HTN, HLD Ovarian Ca on Chemo, s/p surgery and partial colectomy w/ ostomy bag admitted for dehydration and leakage around ostomy bag. Ileostomy dysfunction, leaking - Leaking due to improper fitting colostomy bag now patched up by RN - still w/ high output - Cdiff neg - wound care called did not see yesterday, will try again today Anemia - likely Diultional - pt on Chemo likely anemic due to that - stool now darker however pt restarted on Iron and pt states that is normal for her - cont to monitor - c/w iron, B12 Candiduria - pt started on Diflucan due to immunocompromised state - pt again now c/o dysuria, w/ rpt UA Dehydration Patient has had diarrhea, nausea and vomiting at home. - Improved - Pt eating an drink well Diabetes - FS qAC and HS - c/w Low-dose insulin sliding scale as needed Hypomagnesemia - replete Ovarian cancer - Next chemotherapy appointment in the coming week. - outpt f/u w/ oncology Atrial Fibrillation - HR controlled - hold BB for now due to soft BP - c/w Xarelto DVT prophylaxis c/w - Xarelto Dispo - d/c pending wound care - Time Spent with Patient Total time spent is greater than 50% in coordination of care (as documented) at patient's floor/unit and/or counseling patient: less than 15 minutes Plan of Care Discussed with: patient Internal Medicine: Result - Labs CBC & Chem 7: 12/12/18 07:36 12/12/18 08:30 Labs: Short CBC 12/11/18 12/12/18 Range/Units 13:30 07:36 WBC 3.5 L 3.3 L (4.3-11.1) K/mcL Hgb 8.8 L 8.8 L (11.5-15.4) g/dL Hct 26.8 L 26.4 L (35.3-44.9) % Plt Count 203 207 (140-400) K/mcL Neutrophils # 1.9 1.6 (1.6-8.9) K/mcL BMP 12/12/18 08:30 Sodium 134 L Potassium 4.4 Chloride 104 Carbon Dioxide 23 BUN 14 Creatinine 1.00 Glucose 130 H Calcium 9.9 - ABG Interpretation ABG results: PT/INR, D-dimer PT 11.2 Seconds (9.4-12.1) 12/09/18 13:05 Consult Discharge Plan - Plan Referrals: Erickson Cheney MD [Primary Care Provider] -
[2018-12-12] MEDS: Simethicone 80 MG TAB.CHEW PO PRN (13:59)
[2018-12-12] MEDS: Ondansetron ODT 4 MG TAB.RAPDIS PO PRN (14:12)
--- NOTE | 2018-12-12 15:17 | Physician Discharge Referral ---
Home Health/Hosp Referral Info Transfer to: Home Health Provider in Charge Post Discharge: PCP - Respiratory Orders Smoking Cessation: Smoking cessation has been advised. For more information, call the [place] Tobacco Quit Line at 4-377-VFCM-NOW. - Services Needed Following services are medically necessary services: Nursing, Home Health Aide - Transfer Medications Home Medications: Pantoprazole Sodium [Protonix] 40 mg PO BID 07/08/18 [History] Pravastatin Sodium [Pravachol] 40 mg PO DAILY 07/08/18 [History] Tiotropium [Spiriva] 2 puff IH QAM 07/08/18 [History] Ferrous Sulfate [Iron] 325 mg PO QAM 08/24/18 [History] Mirtazapine [Remeron] 7.5 mg PO HS 08/24/18 [History] Rivaroxaban [Xarelto] 20 mg PO DAILY 08/24/18 [History] Budesonide/Formoterol 160/4.5 [Symbicort 160/4.5] 2 puff IH BIDR 09/27/18 [History] Potassium Chloride [K-Tab ER] 20 meq PO DAILY 09/27/18 [History] 0.9 % Sodium Chloride [Normal Saline Flush] 10 ml IV Q12H 10/26/18 [History] Cyanocobalamin (Vitamin B-12) [Vitamin B12] 1,000 mcg PO BID 10/26/18 [History] Fluticasone Propionate Nasal [Flonase] 50 mcg NS DAILY 10/26/18 [History] Heparin PF 300 UNIT/3 ML [Heparin Pf 300 Unit/3 ml (100/ml)] 3 ml IV Q12H 10/26/18 [History] Magnesium Oxide [Magnesium] 400 mg PO BID 10/26/18 [History] Ondansetron HCl 4 mg PO Q6H PRN 10/26/18 [History] Acetaminophen [Tylenol] 650 mg PO Q6HR PRN 12/09/18 [History] Albuterol Sulfate 2.5 mg IH TID PRN 12/09/18 [History] Albuterol Sulfate [Ventolin Hfa] 18 gm IH Q4H PRN 12/09/18 [History] GuaiFENesin ER [Mucinex] 600 mg PO Q12H PRN 12/09/18 [History] Lactobacillus [Culturelle] 2 each PO BID 12/09/18 [History] Metoprolol Succinate [Toprol Xl] 50 mg PO DAILY 12/09/18 [History] Simethicone [Gas-X] 80 mg PO Q6H PRN 12/09/18 [History] Sodium Chloride [Sodium Chloride Tab] 1 gm PO TID 12/09/18 [History] Allergies/Adverse Reactions: Allergy/AdvReac Type Severity Reaction Status Date / Time ciprofloxacin [From Cipro] Allergy Rash Verified 10/26/18 10:23 prednisone Allergy Rash Verified 10/26/18 10:23 Certification: Further, I certify that my clinical findings support that this patient is homebound (i.e. absences from home require considerable and taxing effort and are for medical reasons or latter-day services or infrequently or short duration when for other reasons) because: Homebound Reason: Patient requires assistance of a person or device to safely leave home Attestation: My signature below is to certify that this patient is under my care and that I, or nurse practitioner, or a physician's perinatal breastfeeding assistant working with me, has a [id number] encounter with this patient.
--- NOTE | 2018-12-12 15:37 | Discharge Summary ---
Orders not resulted at time of discharge: Pending orders 12/09/18 13:05 Culture,Blood [BC] Stat 12/12/18 09:16 Urinalysis Reflex Cult & Micro [URIN] Routine Date of Encounter: 12/12/18 Hospital course: Ms. Arzola is a 68 year old female - Time Spent with Patient Total time spent providing and/or coordinating discharge services: - Discharge Medications Home Medications: Pantoprazole Sodium [Protonix] 40 mg PO BID 07/08/18 [History] Pravastatin Sodium [Pravachol] 40 mg PO DAILY 07/08/18 [History] Tiotropium [Spiriva] 2 puff IH QAM 07/08/18 [History] Ferrous Sulfate [Iron] 325 mg PO QAM 08/24/18 [History] Mirtazapine [Remeron] 7.5 mg PO HS 08/24/18 [History] Rivaroxaban [Xarelto] 20 mg PO DAILY 08/24/18 [History] Budesonide/Formoterol 160/4.5 [Symbicort 160/4.5] 2 puff IH BIDR 09/27/18 [History] Potassium Chloride [K-Tab ER] 20 meq PO DAILY 09/27/18 [History] 0.9 % Sodium Chloride [Normal Saline Flush] 10 ml IV Q12H 10/26/18 [History] Cyanocobalamin (Vitamin B-12) [Vitamin B12] 1,000 mcg PO BID 10/26/18 [History] Fluticasone Propionate Nasal [Flonase] 50 mcg NS DAILY 10/26/18 [History] Heparin PF 300 UNIT/3 ML [Heparin Pf 300 Unit/3 ml (100/ml)] 3 ml IV Q12H 10/26/18 [History] Magnesium Oxide [Magnesium] 400 mg PO BID 10/26/18 [History] Ondansetron HCl 4 mg PO Q6H PRN 10/26/18 [History] Acetaminophen [Tylenol] 650 mg PO Q6HR PRN 12/09/18 [History] Albuterol Sulfate 2.5 mg IH TID PRN 12/09/18 [History] Albuterol Sulfate [Ventolin Hfa] 18 gm IH Q4H PRN 12/09/18 [History] GuaiFENesin ER [Mucinex] 600 mg PO Q12H PRN 12/09/18 [History] Lactobacillus [Culturelle] 2 each PO BID 12/09/18 [History] Metoprolol Succinate [Toprol Xl] 50 mg PO DAILY 12/09/18 [History] Simethicone [Gas-X] 80 mg PO Q6H PRN 12/09/18 [History] Sodium Chloride [Sodium Chloride Tab] 1 gm PO TID 12/09/18 [History] Allergies/Adverse Reactions: Allergy/AdvReac Type Severity Reaction Status Date / Time ciprofloxacin [From Cipro] Allergy Rash Verified 10/26/18 10:23 prednisone Allergy Rash Verified 10/26/18 10:23 Date of admission: 12/11/18 09:28 Primary care physician: Erickson Cheney Consults: 12/09/18 21:29 Consult to Pastoral Services [CONS] Routine Comment: Consult to Claim Processing Specialist [CONS] Routine Reason for SW Consult: D/C planning with [facility] 12/10/18 11:56 Consult to Surgery [CONS] Routine Consulting Provider: [facility] Reason for Consult: leakage around ostomy site Call Completed: Yes 12/10/18 12:39 Consult to Wound Care [CONS] Routine Reason for Consult: continuous leakage around ostomy site Call Completed: No - Constitutional Vitals: Temp Pulse Resp BP Pulse Ox 98.4 F 120 16 108/69 96 12/12/18 15:15 12/12/18 15:15 12/12/18 15:15 12/12/18 15:15 12/12/18 15:15 General appearance: Present: cooperative, A&O X 3, pleasant, no acute distress, answers questions appropriately - Patient Status Condition: Fair - Discharge Instructions Follow Up With: Erickson Cheney MD [Primary Care Provider] -
[2018-12-12] MEDS ORDERED: Metoclopramide 10 MG/2 ML VIAL IVP ONE (15:38)
--- NOTE | 2018-12-12 15:38 | Internal Med Progress Note ---
Hospitalist Progress Note - Encounter Date of Encounter: 12/12/18 Time of Encounter: 15:37 - Subjective Interval History: 68 y/o female with PMHx of Asthma, COPD, Atrial Fibrillation, DM, GERD, HTN, HLD Ovarian Ca on Chemo, s/p surgery and partial colectomy w/ ostomy bag admitted for dehydration and leakage around ostomy bag. Pt seen and examined at bedside. Pt reports she felt better this morning however this afternoon now with worsening nausea, and abdominal pain, s/p 1 episode of emesis; food to blood or bile. Pt reports she feels dizzy. Pt denies fever or chills. - Exam Vitals: Temp Pulse Resp BP Pulse Ox 98.4 F 120 16 108/69 96 12/12/18 15:15 12/12/18 15:15 12/12/18 15:15 12/12/18 15:15 12/12/18 15:15 Exam: General - Pt laying in bed, NAD HEENT - NC/AT, PERRLA, oropharynx no exudates Neck - supple, no LN Lungs - CTA b/l CVS - nl S1, S2, RRR Abdomen - left side scar, right ostomy bag, no more leakage, surrounding erythema, abdomen still sore, BS + Ext - no edema Neuro - No focal deficits Skin - aside from abd as above, no rash or lesions - Summary of Assessment and Plan Summary of Assessment and Plan: 68 y/o female with PMHx of Asthma, COPD, Atrial Fibrillation, DM, GERD, HTN, HLD Ovarian Ca on Chemo, s/p surgery and partial colectomy w/ ostomy bag admitted for dehydration and leakage around ostomy bag. Ileostomy dysfunction, leaking - Leaking due to improper fitting colostomy bag now patched up by RN - still w/ high output - Cdiff neg - wound care called did not see yesterday, will try again today Anemia - likely Diultional - pt on Chemo likely anemic due to that - stool now darker however pt restarted on Iron and pt states that is normal for her - cont to monitor - c/w iron, B12 Candiduria - pt started on Diflucan due to immunocompromised state - pt again now c/o dysuria, w/ rpt UA Dehydration Patient has had diarrhea, nausea and vomiting at home. - Improved - Pt eating an drink well Diabetes - FS qAC and HS - c/w Low-dose insulin sliding scale as needed Hypomagnesemia - replete Ovarian cancer - Next chemotherapy appointment in the coming week. - outpt f/u w/ oncology Atrial Fibrillation - HR controlled - hold BB for now due to soft BP - c/w Xarelto DVT prophylaxis c/w - Xarelto Dispo - d/c pending wound care - Time Spent with Patient Total time spent is greater than 50% in coordination of care (as documented) at patient's floor/unit and/or counseling patient: Internal Medicine: Result - Labs CBC & Chem 7: 12/12/18 07:36 12/12/18 08:30 Labs: Short CBC 12/12/18 Range/Units 07:36 WBC 3.3 L (4.3-11.1) K/mcL Hgb 8.8 L (11.5-15.4) g/dL Hct 26.4 L (35.3-44.9) % Plt Count 207 (140-400) K/mcL Neutrophils # 1.6 (1.6-8.9) K/mcL BMP 12/12/18 08:30 Sodium 134 L Potassium 4.4 Chloride 104 Carbon Dioxide 23 BUN 14 Creatinine 1.00 Glucose 130 H Calcium 9.9 - ABG Interpretation ABG results: PT/INR, D-dimer PT 11.2 Seconds (9.4-12.1) 12/09/18 13:05 Consult Discharge Plan - Plan Referrals: Erickson Cheney MD [Primary Care Provider] -
--- NOTE | 2018-12-12 15:50 | Event Note ---
Date of Encounter: 12/12/18 Time of Encounter: 15:47 Informed by RN, pt c/o nausea, abdominal pain, s/p episode of emesis. Pt also c/o dizziness. Pt reports it feels as thought her GB is starting to act up again. Denies fever or chills - will f/u repeat vitals - f/u cmp and lipase - hold off on D/C
[2018-12-12 17:33] LABS: Bilirubin,Urine Negative (Negative); Blood,Urine Trace (Negative); Clarity,Urine Clear (Clear); Color,Urine Yellow (Yellow); Glucose,Urine (UA) Normal (Normal); Ketones,Urine Negative (Negative); Leukocyte Esterase,Urine Small (Negative); Nitrite,Urine Negative (Negative); PH,Urine 5.5 pH Units (5.0-8.0); Protein,Urine 30 mg/dL (Neg-Trace); Specific Gravity,Urine 1.021 (1.010-1.025); Urobilinogen,Urine Normal (Normal)
[2018-12-12 17:43] LABS: Albumin 3.8 g/dL (3.5-5.7); Albumin/Globulin Ratio 1.2 (1.1-2.2); Bilirubin,Total 0.3 mg/dL (0.3-1.0); Calcium 10.5 mg/dL (8.6-10.3); Globulin 3.3 g/dL (2.4-3.5); Potassium 5.3 mEq/L (3.5-5.1); Total Protein 7.1 g/dL (6.4-8.9)
[2018-12-12 17:55] LABS: Amorphous Sediment,Urine Few (Few); Bacteria,Urine Few per hpf (None-Few)
[2018-12-12] MEDS: *HR* OxyCODONE Immed Rel 5 MG TABLET PO PRN (20:42)
[2018-12-12] MEDS: Mirtazapine 15 MG TABLET PO SCH (20:43)
[2018-12-13] MEDS: Insulin LISPRO 300 UNITS/3 ML VIAL SQ SCH ×4 (03:45→16:52)
[2018-12-13] MEDS ORDERED: 0.9 % Sodium Chloride 1,000 ML IVC ONE (03:55)
[2018-12-13] MEDS: Ondansetron ODT 4 MG TAB.RAPDIS PO PRN ×2 (04:09→10:47)
[2018-12-13] MEDS: Budesonide/Formoterol 160/4.5 1 PUFF INH IH SCH ×2 (07:49→21:50)
[2018-12-13] MEDS: Tiotropium 18 MCG inhalation IH SCH (07:49)
[2018-12-13] MEDS: Magnesium Oxide 400 MG TABLET PO SCH ×2 (10:46→21:21)
[2018-12-13] MEDS: Fluconazole 100 MG TABLET PO SCH (10:46)
[2018-12-13] MEDS: Lactobacillus 1 EACH CAP.SPRINK PO SCH ×2 (10:46→21:21)
[2018-12-13] MEDS: *HR* Rivaroxaban 15 MG TABLET PO SCH (10:46)
[2018-12-13] MEDS: Cyanocobalamin (B-12) 1,000 MCG TABLET PO SCH ×2 (10:46→21:20)
[2018-12-13] MEDS: Neosporin OINT 15 GM TUBE TP SCH ×2 (10:47→20:45)
--- NOTE | 2018-12-13 13:33 | Internal Med Progress Note ---
Hospitalist Progress Note - Encounter Date of Encounter: 12/13/18 Time of Encounter: 13:33 - Subjective Interval History: 68 y/o female with PMHx of Asthma, COPD, Atrial Fibrillation, DM, GERD, HTN, HLD Ovarian Ca on Chemo, s/p surgery and partial colectomy w/ ostomy bag admitted for dehydration and leakage around ostomy bag. Pt seen and examined at bedside. Pt still c/o RUQ abdominal pain and nausea. Pt reports she feels similar to when she required a biliary tube. Pt also c/o increased urinary frequency. No fever or chills - Exam Vitals: Temp Pulse Resp BP Pulse Ox 98.2 F 127 15 94/60 100 12/13/18 11:19 12/13/18 11:19 12/13/18 11:19 12/13/18 11:19 12/13/18 11:19 Exam: General - Pt laying in bed in NAD, HEENT - NC/AT, PERRLA, dry MM Neck - supple, no LN Lungs - CTA b/l CVS - nl S1, S2, RRR Abdomen - left side scar, right ostomy bag, no more leakage, surrounding erythema, abdomen still sore, more noted in RUQ, BS + Ext - no edema Neuro - No focal deficits Skin - aside from abd as above, no rash or lesions - Summary of Assessment and Plan Summary of Assessment and Plan: 68 y/o female with PMHx of Asthma, COPD, Atrial Fibrillation, DM, GERD, HTN, HLD Ovarian Ca on Chemo, s/p surgery and partial colectomy w/ ostomy bag admitted for dehydration and leakage around ostomy bag. Ileostomy dysfunction, leaking - Leaking due to improper fitting colostomy bag now patched up by RN - still w/ high output - Cdiff neg - wound care called did not see yesterday, will try again today - pt w/ continued RUQ pain, LFTs now elevated, RUQ done shows mild wall t hickening, no stone, CBD duct wnl, surgery made aware, will see later in the day. Anemia - likely Diultional - pt on Chemo likely anemic due to that - stool now darker however pt restarted on Iron and pt states that is normal for her - cont to monitor - c/w iron, B12 Candiduria - pt started on Diflucan - pt again now c/o dysuria, w/ rpt UA w/ straight cath shows few bacteria, will start Bactrim pending pending urine cultures Dehydration Patient has had diarrhea, nausea and vomiting at home. - Improved - Pt eating an drink well Diabetes - FS qAC and HS - c/w Low-dose insulin sliding scale as needed Hypomagnesemia - repleted Ovarian cancer - Next chemotherapy appointment in the coming week. - outpt f/u w/ oncology Atrial Fibrillation - HR controlled - hold BB for now due to soft BP - c/w Xarelto DVT prophylaxis c/w - Xarelto Dispo - d/c pending surgery re-eval - Time Spent with Patient Total time spent is greater than 50% in coordination of care (as documented) at patient's floor/unit and/or counseling patient: Plan of Care Discussed with: patient Internal Medicine: Result - Labs CBC & Chem 7: 12/12/18 07:36 12/12/18 17:08 Labs: BMP 12/12/18 17:08 Sodium 132 L Potassium 5.3 H Chloride 102 Carbon Dioxide 22 L BUN 16 Creatinine 1.17 Glucose 142 H Calcium 10.5 H Liver Function 12/12/18 Range/Units 17:08 Total Bilirubin 0.3 (0.3-1.0) mg/dL AST 54 H (13-39) Units/L ALT 66 H (7-52) Units/L Alkaline Phosphatase 188 H (34-104) Units/L Albumin 3.8 (3.5-5.7) g/dL Urine 12/12/18 Range/Units 17:20 Urine Color Yellow (Yellow) Urine Clarity Clear (Clear) Urine pH 5.5 (5.0-8.0) pH Units Ur Specific [place] 1.021 (1.010-1.025) Urine Protein 30 H (Neg-Trace) mg/dL Urine Glucose (UA) Normal (Normal) mg/dL - ABG Interpretation ABG results: PT/INR, D-dimer PT 11.2 Seconds (9.4-12.1) 12/09/18 13:05 - Impressions Impressions Abdomen Ultrasound 12/13/18 10:00 IMPRESSION: Mild gallbladder wall thickening with probable adenomyomatosis. No definite evidence of acute cholecystitis. D/ / 12/13/2018 11:06:50 Marcellus Crespo MD / Racheal Márquez Interpreting Provider: Marcellus Crespo MD Consult Discharge Plan - Plan Referrals: Erickson Cheney MD [Primary Care Provider] -
[2018-12-13] MEDS: Sulfamethoxazole/Trimeth DS 1 EACH TABLET PO SCH ×2 (14:26→21:21)
[2018-12-13 15:15] LABS: Hematocrit 26.5 % (35.3-44.9); Hemoglobin 8.6 g/dL (11.5-15.4); Mean Corpuscular HGB Conc 32.5 g/dL (31.6-35.5); Mean Corpuscular Volume 104.7 fL (83.0-100.0); Mean Platelet Volume 10.1 fL (9.4-12.4); Platelet Count 241 K/mcL (140-400); Red Blood Count 2.53 M/mcL (3.82-4.97); Red Cell Distribution Width 26.2 % (11.5-14.5)
[2018-12-13 15:34] LABS: Albumin 3.6 g/dL (3.5-5.7); Albumin/Globulin Ratio 1.3 (1.1-2.2); Bilirubin,Total 0.4 mg/dL (0.3-1.0); Calcium 10.1 mg/dL (8.6-10.3); Globulin 2.8 g/dL (2.4-3.5); Magnesium 1.9 mg/dL (1.6-2.6); Total Protein 6.4 g/dL (6.4-8.9)
[2018-12-13 16:26] LABS: Lymphocytes # 0.7 K/mcL (0.6-4.6); Monocytes # 0.2 K/mcL (0.0-1.3); Neutrophils # 1.7 K/mcL (1.6-8.9)
[2018-12-13 16:27] LABS: Anisocytosis 2+ (Not Present); Hypochromasia Present (Not Present); Platelet Estimate Normal (Normal); Reactive Lymphocytes Present (Not Present)
[2018-12-13] MEDS ORDERED: Insulin Human Regular 10 UNIT in 0.9 % Sodium Chloride 10 ML IV ONE (19:06)
[2018-12-13] MEDS ORDERED: *HR* Dextrose 50 % in Water (Syg) 50 ML SYRINGE IVP ONE (19:06)
[2018-12-13] MEDS ORDERED: 0.9 % Sodium Chloride 1,000 ML IVC SCH (19:15)
[2018-12-13] MEDS: Mirtazapine 15 MG TABLET PO SCH (20:45)
[2018-12-14 05:46] LABS: Calcium 9.4 mg/dL (8.6-10.3); Magnesium 1.5 mg/dL (1.6-2.6); Phosphorous 3.7 mg/dL (2.7-4.5); Potassium 4.5 mEq/L (3.5-5.1)
[2018-12-14 05:49] LABS: Hematocrit 22.7 % (35.3-44.9); Hemoglobin 7.5 g/dL (11.5-15.4); Immature Platelets 3.2 % (1.1-6.1); Mean Corpuscular Hemoglobin 34.2 pg (28.0-33.3); Mean Corpuscular Volume 103.7 fL (83.0-100.0); Mean Platelet Volume 10.1 fL (9.4-12.4); Platelet Count 208 K/mcL (140-400); Red Blood Count 2.19 M/mcL (3.82-4.97)
[2018-12-14] MEDS: Insulin LISPRO 300 UNITS/3 ML VIAL SQ SCH ×5 (06:22→21:18)
[2018-12-14 07:04] LABS: Anisocytosis 2+ (Not Present); Basophils # 0.1 K/mcL (0.0-0.2); Eosinophils # 0.1 K/mcL (0.0-0.6); Hypochromasia Present (Not Present); Large Platelets Present (Not Present); Macrocytosis Present (Not Present); Monocytes # 0.3 K/mcL (0.0-1.3); Neutrophils # 1.1 K/mcL (1.6-8.9); Ovalocytes 1+ (Not Present); Platelet Estimate Normal (Normal); Polychromasia 1+ (Not Present)
[2018-12-14] MEDS: Budesonide/Formoterol 160/4.5 1 PUFF INH IH SCH ×2 (07:33→20:06)
[2018-12-14] MEDS: Tiotropium 18 MCG inhalation IH SCH (07:33)
[2018-12-14] MEDS: Fluconazole 100 MG TABLET PO SCH (09:50)
[2018-12-14] MEDS: Lactobacillus 1 EACH CAP.SPRINK PO SCH ×2 (09:50→20:42)
[2018-12-14] MEDS: Cyanocobalamin (B-12) 1,000 MCG TABLET PO SCH ×2 (09:51→20:42)
[2018-12-14] MEDS: *HR* Rivaroxaban 15 MG TABLET PO SCH (09:51)
[2018-12-14] MEDS: Sulfamethoxazole/Trimeth DS 1 EACH TABLET PO SCH (09:51)
[2018-12-14] MEDS: Magnesium Oxide 400 MG TABLET PO SCH ×2 (09:51→20:43)
[2018-12-14] MEDS: Ondansetron ODT 4 MG TAB.RAPDIS PO PRN ×3 (09:55→20:42)
[2018-12-14] MEDS: *HR* HYDROcodone/Acet 5/325 mg TABLET PO PRN (11:01)
[2018-12-14 13:36] LABS: Hematocrit 23.2 % (35.3-44.9); Hemoglobin 7.5 g/dL (11.5-15.4)
--- NOTE | 2018-12-14 15:55 | Discharge Summary ---
- NOTES TO OUTPATIENT PROVIDER Notes to Outpatient Provider: Repeat CBC on 11/17. Orders not resulted at time of discharge: Pending orders 12/12/18 17:20 Culture,Urine [RM] Routine Date of Encounter: 12/14/18 Time of Encounter: 15:53 - Discharge Diagnosis (1) Candiduria Priority: Secondary Status: Acute (2) Dehydration Priority: Primary Status: Acute (3) Ileostomy dysfunction Priority: Secondary Status: Acute (4) Tachycardia Priority: Secondary Status: Acute (5) Hypokalemia Priority: Secondary Status: Acute (6) Hyponatremia Priority: Secondary Status: Acute (7) UTI (urinary tract infection), bacterial Priority: Secondary Status: Acute (8) Weakness Priority: Secondary Status: Acute (9) Anemia Priority: Secondary Status: Chronic Qualifiers: Anemia type: unspecified type Qualified Code(s): D64.9 - Anemia, unspecified (10) KOBE (acute kidney injury) Priority: Secondary Status: Resolved (11) Hypomagnesemia Priority: Secondary Status: Resolved (12) Hypotension Priority: Secondary Status: Resolved Qualifiers: Hypotension type: hypotension due to drug Qualified Code(s): I95.2 - Hyp otension due to drugs Hospital course: Ms. Arzola is a 68 year old female - Time Spent with Patient Total time spent providing and/or coordinating discharge services: - Discharge Medications Home Medications: Pantoprazole Sodium [Protonix] 40 mg PO BID 07/08/18 [History] Pravastatin Sodium [Pravachol] 40 mg PO DAILY 07/08/18 [History] Ferrous Sulfate [Iron] 325 mg PO QAM 08/24/18 [History] Rivaroxaban [Xarelto] 20 mg PO QPM 08/24/18 [History] Budesonide/Formoterol 160/4.5 [Symbicort 160/4.5] 2 puff IH BIDR 09/27/18 [History] Potassium Chloride [K-Tab ER] 20 meq PO DAILY 09/27/18 [History] 0.9 % Sodium Chloride [Normal Saline Flush] 10 ml IV Q12H 10/26/18 [History] Cyanocobalamin (Vitamin B-12) [Vitamin B12] 1,000 mcg PO BID 10/26/18 [History] Fluticasone Propionate Nasal [Flonase] 50 mcg NS DAILY 10/26/18 [History] Heparin PF 300 UNIT/3 ML [Heparin Pf 300 Unit/3 ml (100/ml)] 3 ml IV Q12H 10/26/18 [History] Magnesium Oxide [Magnesium] 400 mg PO BID 10/26/18 [History] Ondansetron HCl 4 mg PO Q6H PRN 10/26/18 [History] Acetaminophen [Tylenol] 650 mg PO Q6HR PRN 12/09/18 [History] Albuterol Sulfate 2.5 mg IH TID PRN 12/09/18 [History] Albuterol Sulfate [Ventolin Hfa] 2 puff IH Q4H PRN 12/09/18 [History] GuaiFENesin ER [Mucinex] 600 mg PO Q12H PRN 12/09/18 [History] Lactobacillus [Culturelle] 1 each PO BID 12/09/18 [History] Metoprolol Succinate [Toprol Xl] 50 mg PO QPM 12/09/18 [History] Simethicone [Gas-X] 80 mg PO Q6H PRN 12/09/18 [History] Sodium Chloride [Sodium Chloride Tab] 1 gm PO TID 12/09/18 [History] Cyclobenzaprine HCl 5 mg PO TID PRN 12/12/18 [History] Mirtazapine 7.5 mg PO HS 12/12/18 [History] Oxygen 2 l IH AD PRN 12/12/18 [History] Tiotropium [Spiriva] 18 mcg IH DAILY 12/12/18 [History] Allergies/Adverse Reactions: Allergy/AdvReac Type Severity Reaction Status Date / Time ciprofloxacin [From Cipro] Allergy Rash Verified 12/12/18 17:01 prednisone Allergy Rash Verified 12/12/18 17:01 Date of admission: 12/11/18 09:28 Primary care physician: Erickson Cheney Consults: 12/09/18 21:29 Consult to Pastoral Services [CONS] Routine Comment: Consult to Robotype Operator [CONS] Routine Reason for SW Consult: D/C planning with [facility] 12/10/18 11:56 Consult to Surgery [CONS] Routine Consulting Provider: [facility] Reason for Consult: leakage around ostomy site Call Completed: Yes 12/10/18 12:39 Consult to Wound Care [CONS] Routine Reason for Consult: continuous leakage around ostomy site Call Completed: No - Constitutional Vitals: Temp Pulse Resp BP Pulse Ox 98.1 F 104 16 103/64 99 12/14/18 10:36 12/14/18 10:36 12/14/18 10:36 12/14/18 10:36 12/14/18 10:36 General appearance: Present: cooperative, A&O X 3, pleasant, no acute distress, answers questions appropriately - Patient Status Condition: Fair - Discharge Instructions Follow Up With: Erickson Cheney MD [Primary Care Provider] - 12/20/18 2:00 pm
--- NOTE | 2018-12-14 16:11 | Internal Med Progress Note ---
Hospitalist Progress Note - Encounter Date of Encounter: 12/14/18 Time of Encounter: 16:08 - Subjective Interval History: 68 y/o female with PMHx of Asthma, COPD, Atrial Fibrillation, DM, GERD, HTN, HLD Ovarian Ca on Chemo, s/p surgery and partial colectomy w/ ostomy bag admitted for dehydration, hypotension, electrolyte abnormalities and leakage around ostomy bag. Pt seen and examined at bedside. Pt reports she feels weaker today. No fever or chills - Exam Vitals: Temp Pulse Resp BP Pulse Ox 98.1 F 104 16 103/64 99 12/14/18 10:36 12/14/18 10:36 12/14/18 10:36 12/14/18 10:36 12/14/18 10:36 Exam: General - Pt laying in bed in NAD, HEENT - NC/AT, PERRLA, MMM Neck - supple, no LN Lungs - CTA b/l CVS - nl S1, S2, RRR Abdomen - left side scar, right ostomy bag, no more leakage, surrounding erythema, abdomen still sore, improved, BS + Ext - no edema Neuro - No focal deficits Skin - aside from abd as above, no rash or lesions - Summary of Assessment and Plan Summary of Assessment and Plan: 68 y/o female with PMHx of Asthma, COPD, Atrial Fibrillation, DM, GERD, HTN, HLD Ovarian Ca on Chemo, s/p surgery and partial colectomy w/ ostomy bag admitted for dehydration and leakage around ostomy bag. Ileostomy dysfunction, leaking - Leaking resolved - appreciate wound care recommendations - Cdiff neg - pt w/ mild RUQ pain, LFTs mildly elevated now resolved, RUQ done shows mild wall thickening, adenomyomatosis no stone, CBD wnl. Abdominal pain now resolved (pt reported she had cholecystitis in the past underwent bilairy drainage as was too weak for surgery), outpt follow up with surgery. Anemia (baseline about 8-10) - Dilutional drop, pt s/p about 5L of IVF total - pt c/o feeling weak today will transfuse 1 unit PRBC - guaiac neg, bilis nl - cont to monitor - c/w iron, B12 Neutropenia - Due to chemo - cont to monitor UTI, Candiduria, and bacterial - c/w Diflucan - Urine culture growing GNR, c/w bactrim, sxs improved Dehydration - Improved - Pt eating an drink well Diabetes - FS qAC and HS - c/w Low-dose insulin sliding scale as needed KOBE, HypoK, Hypomagnesemia - s/p about 5L IVF - cont to monitor - repleted Ovarian cancer - Next chemotherapy appointment in the coming week. - outpt f/u w/ oncology Atrial Fibrillation - HR controlled - hold BB for now due to soft BP - c/w Xarelto DVT prophylaxis c/w - Xarelto Dispo - can likely d/c in am - Time Spent with Patient Total time spent is greater than 50% in coordination of care (as documented) at patient's floor/unit and/or counseling patient: Internal Medicine: Result - Labs CBC & Chem 7: 12/14/18 13:20 12/14/18 04:58 Labs: Short CBC 12/13/18 12/14/18 12/14/18 Range/Units 15:08 04:58 13:20 WBC 2.4 L (4.3-11.1) K/mcL Hgb 7.5 L 7.5 L (11.5-15.4) g/dL Hct 22.7 L 23.2 L (35.3-44.9) % Plt Count 208 (140-400) K/mcL Neutrophils # 1.7 1.1 L (1.6-8.9) K/mcL BMP 12/14/18 04:58 Sodium 132 L Potassium 4.5 Chloride 103 Carbon Dioxide 21 L BUN 18 Creatinine 1.22 H Glucose 105 Calcium 9.4 Urine 12/12/18 Range/Units 17:20 Urine Color Yellow (Yellow) Urine Clarity Clear (Clear) Urine pH 5.5 (5.0-8.0) pH Units Ur Specific [place] 1.021 (1.010-1.025) Urine Protein 30 H (Neg-Trace) mg/dL Urine Glucose (UA) Normal (Normal) mg/dL - ABG Interpretation ABG results: PT/INR, D-dimer PT 11.2 Seconds (9.4-12.1) 12/09/18 13:05 Consult Discharge Plan - Plan Referrals: Erickson Cheney MD [Primary Care Provider] - 12/20/18 2:00 pm
[2018-12-14] MEDS: Neosporin OINT 15 GM TUBE TP SCH ×2 (17:42→20:55)
[2018-12-14] MEDS ORDERED: 0.9 % Sodium Chloride 250 ML ONE (18:35)
[2018-12-14] MEDS: Sulfamethoxazole/Trimeth SS 1 TAB PO SCH (20:42)
[2018-12-14] MEDS: Mirtazapine 15 MG TABLET PO SCH (20:42)
--- NOTE | 2018-12-15 03:38 | Event Note ---
Date of Encounter: 12/14/18 Time of Encounter: 20:40 Alerted by pts. nurse ARMANI Echavarria that the patient was under the impression should be going home tonight after receiving her 1 unit of PRBCs. DC order had been placed but then canceled. I informed nurse and no discharges occur at night due to current staffing model. I also informed the nurse that patient would require close monitoring after receiving blood products. Patient stated to the nurse that [facility] had told the patient that it was up to her whether or not she wanted to leave this evening. Reiterated that no discharges occur at night. Nurse instructed to monitor the patient closely and inform me immediately of any adverse changes regarding post-blood product administration.
[2018-12-15] MEDS: Insulin LISPRO 300 UNITS/3 ML VIAL SQ SCH ×4 (07:41→21:12)
[2018-12-15] MEDS: Ondansetron ODT 4 MG TAB.RAPDIS PO PRN ×3 (08:00→23:18)
[2018-12-15] MEDS: Magnesium Oxide 400 MG TABLET PO SCH ×2 (10:16→21:10)
[2018-12-15] MEDS: *HR* Rivaroxaban 15 MG TABLET PO SCH (10:16)
[2018-12-15] MEDS: Lactobacillus 1 EACH CAP.SPRINK PO SCH ×2 (10:16→21:09)
[2018-12-15] MEDS: Sulfamethoxazole/Trimeth SS 1 TAB PO SCH (10:17)
[2018-12-15] MEDS: Fluconazole 100 MG TABLET PO SCH (10:17)
[2018-12-15] MEDS: Cyanocobalamin (B-12) 1,000 MCG TABLET PO SCH ×2 (10:17→21:10)
[2018-12-15] MEDS: *HR* OxyCODONE Immed Rel 5 MG TABLET PO PRN (11:38)
[2018-12-15] MEDS: Tiotropium 18 MCG inhalation IH SCH (11:55)
[2018-12-15] MEDS: Budesonide/Formoterol 160/4.5 1 PUFF INH IH SCH ×2 (11:55→22:20)
--- NOTE | 2018-12-15 13:52 | Discharge Summary ---
Date of Encounter: 12/15/18 Time of Encounter: 13:49 - Discharge Diagnosis (1) KOBE (acute kidney injury) Priority: Primary Status: Acute (2) Dehydration Priority: Secondary Status: Acute (3) Ovarian cancer Priority: Secondary Status: Chronic Qualifiers: Laterality: unspecified laterality Qualified Code(s): C56.9 - Malignant neoplasm of unspecified ovary (4) COPD (chronic obstructive pulmonary disease) Priority: Secondary Status: Chronic Qualifiers: COPD type: unspecified COPD Qualified Code(s): J44.9 - Chronic obstructive pulmonary disease, unspecified (5) Hypertension Priority: Secondary Status: Chronic Qualifiers: Hypertension type: essential hypertension Qualified Code(s): I10 - Essential (primary) hypertension (6) S/P colostomy Priority: Secondary Status: Chronic (7) Weakness Priority: Secondary Status: Acute (8) UTI (urinary tract infection), bacterial Priority: Secondary Status: Acute (9) Afib Priority: Secondary Status: Chronic Qualifiers: Atrial fibrillation type: chronic Qualified Code(s): I48.2 - Chronic atrial fibrillation Hospital course: Ms. Arzola is 68 y/o female with PMHx of Asthma, COPD, Atrial Fibrillation, DM, GERD, HTN, HLD Ovarian Ca on Chemo, s/p surgery and partial colectomy w/ ostomy bag admitted for dehydration and leakage around ostomy bag on 12/09. Patient continues to have abdominal pain nausea vomiting, high colostomy output. The patient and her requested to be transferred to [facility] with Dr. Kal Quijano. I called the [facility] Doctor Backes accepted patient to be transferred to [facility]. Colostomy dysfunction, leaking, resolved - appreciate wound care recommendations - Cdiff neg Persistent nausea and abdominal pain, abdominal distention. RUQ US on 12/03 showed mild wall thickening, adenomyomatosis, will defer to [facility] , her primary oncologist to address. Abdomen CT showed 1. Redemonstration of right lower abdomen colostomy. Limited evaluation of GI tract due to lack of intraluminal contrast. Postsurgical changes as noted previously. Some dilated small bowel loops in the left mid abdomen without transition point possibly related to ileus but not well evaluated. Redemonstration of left lower abdomen fluid collection abutting the descending colon measuring 5.6 x 4.4 x 5.9 cm, previously reported at 4.6 x 6.1 x 8.3 cm. Anemia (baseline about 8-10) - Dilutional drop, pt s/p about 5L of IVF total, had 1 unit PRBC on 12/15/2018 Neutropenia from chemo UTI, Candiduria, and bacterial--Klebsiella - c/w Diflucan, change to ceftriaxone due to worsening bandemia ARF from Dehydration - Improved, continue IVF Diabetes - FS qAC and HS - c/w Low-dose insulin sliding scale as needed KOBE, HypoK, Hypomagnesemia, replaced amd monitor Ovarian cancer-- follow up with [facility] - Next chemotherapy appointment in the coming week. - outpt f/u w/ oncology Atrial Fibrillation - HR controlled - hold BB for now due to soft BP - c/w Xarelto DVT prophylaxis c/w - Xarelto Dispo - transfer to [facility], Dr Dong accepted the transfer - Time Spent with Patient Total time spent is greater than 50% in coordination of care (as documented) at patient's floor/unit and/or counseling patient: Discharge discussed with: patient Time spent discussing smoking cessation with patient: more than 10 minutes - Time Spent with Patient Total time spent providing and/or coordinating discharge services: Greater than 30 minutes - Discharge Medications Home Medications: Pantoprazole Sodium [Protonix] 40 mg PO BID 07/08/18 [History] Pravastatin Sodium [Pravachol] 40 mg PO DAILY 07/08/18 [History] Ferrous Sulfate [Iron] 325 mg PO QAM 08/24/18 [History] Rivaroxaban [Xarelto] 20 mg PO QPM 08/24/18 [History] Budesonide/Formoterol 160/4.5 [Symbicort 160/4.5] 2 puff IH BIDR 09/27/18 [History] Potassium Chloride [K-Tab ER] 20 meq PO DAILY 09/27/18 [History] 0.9 % Sodium Chloride [Normal Saline Flush] 10 ml IV Q12H 10/26/18 [History] Cyanocobalamin (Vitamin B-12) [Vitamin B12] 1,000 mcg PO BID 10/26/18 [History] Fluticasone Propionate Nasal [Flonase] 50 mcg NS DAILY 10/26/18 [History] Heparin PF 300 UNIT/3 ML [Heparin Pf 300 Unit/3 ml (100/ml)] 3 ml IV Q12H 10/26/18 [History] Magnesium Oxide [Magnesium] 400 mg PO BID 10/26/18 [History] Ondansetron HCl 4 mg PO Q6H PRN 10/26/18 [History] Acetaminophen [Tylenol] 650 mg PO Q6HR PRN 12/09/18 [History] Albuterol Sulfate 2.5 mg IH TID PRN 12/09/18 [History] Albuterol Sulfate [Ventolin Hfa] 2 puff IH Q4H PRN 12/09/18 [History] GuaiFENesin ER [Mucinex] 600 mg PO Q12H PRN 12/09/18 [History] Lactobacillus [Culturelle] 1 each PO BID 12/09/18 [History] Metoprolol Succinate [Toprol Xl] 50 mg PO QPM 12/09/18 [History] Simethicone [Gas-X] 80 mg PO Q6H PRN 12/09/18 [History] Sodium Chloride [Sodium Chloride Tab] 1 gm PO TID 12/09/18 [History] Cyclobenzaprine HCl 5 mg PO TID PRN 12/12/18 [History] Mirtazapine 7.5 mg PO HS 12/12/18 [History] Oxygen 2 l IH AD PRN 12/12/18 [History] Tiotropium [Spiriva] 18 mcg IH DAILY 12/12/18 [History] Allergies/Adverse Reactions: Allergy/AdvReac Type Severity Reaction Status Date / Time ciprofloxacin [From Cipro] Allergy Rash Verified 12/12/18 17:01 prednisone Allergy Rash Verified 12/12/18 17:01 Date of admission: 12/11/18 09:28 Primary care physician: Erickson Cheney Consults: 12/09/18 21:29 Consult to Pastoral Services [CONS] Routine Comment: Consult to Wheel Setter [CONS] Routine Reason for SW Consult: D/C planning with [facility] 12/10/18 11:56 Consult to Surgery [CONS] Routine Consulting Provider: [facility] Reason for Consult: leakage around ostomy site Call Completed: Yes 12/10/18 12:39 Consult to Wound Care [CONS] Routine Reason for Consult: continuous leakage around ostomy site Call Completed: No - Constitutional Vitals: Temp Pulse Resp BP Pulse Ox 98.0 F 92 17 115/71 96 12/15/18 10:30 12/15/18 10:30 12/15/18 11:56 12/15/18 10:30 12/15/18 11:56 General appearance: Present: cooperative, A&O X 3, pleasant, no acute distress, answers questions appropriately Exam: CONSTITUTIONAL: patient appears as an age appropriate female in no acute distress. EYES Clear sclerae, bilateral pupils are equal, reactive to light. EMOI. RESPIRATORY: No accessory muscle use, bilateral clear to auscultation, no wheezing, no crackles/rales. CARDIOVASCULAR: Regular heart rate, normal S1 and S2, no murmurs GASTROINTESTINAL: bowel sounds present, soft, matt stoma tenderness. MUSCULOSKELETAL: Joints in normal range of motion, no clubbing, no edema, no cyanosis. Bilateral peripheral pulses 2+. NEUROLOGIC: CN II to XII are grossly intact, no focal neurological deficit. - Patient Status Disposition: Transfer Other Condition: Good Overall status at discharge: patient is back to baseline - Discharge Instructions Follow Up With: Erickson Cheney MD [Primary Care Provider] - 12/20/18 2:00 pm
[2018-12-15] MEDS ORDERED: cefTRIAXone 1,000 MG in 0.9 % Sodium Chloride Mini Bag 100 ML IVPB SCH (14:05)
[2018-12-15] MEDS: Neosporin OINT 15 GM TUBE TP SCH ×2 (14:17→21:10)
[2018-12-15] MEDS ORDERED: *HR* Promethazine 25 MG/ML VIAL IVP PRN (19:54)
[2018-12-15] MEDS: Mirtazapine 15 MG TABLET PO SCH (21:10)
[2018-12-15 21:13] VITALS: BP 123/73
== END 2018-12-15 23:23 | disposition other institution (70) | DRG 394 ==
LOC: EMEROOARM 11:43 → 3ANU 11:43 → SUATTDRO 18:55 → 3ANU 20:43 → SUATTDRO 12-11 09:28
PROVIDERS: ADMIT Internal Medicine; ATTEND Hospitalist